=== PATIENT | male | born 1930 | race Caucasian/White ===

== ENCOUNTER 2016-05-09 17:29 | Inpatient (IN) | payer MEDICARE, MEDICAID ==
[~2016-05-09] VITALS: Ht 167.6 cm; Wt 57.6 kg
--- NOTE | 2016-05-09 17:47 | NUR ---
PT BIB SON TO ER BED 10. PRESENTS W/ A L EAR LACERATION. NO ACTIVE BLEEDING. FAMILY STATES UNWITNESSED FALL AT HOME. PT INSISTING TRIP AND FALL. CONFUSION NOTED. GOWNED AND PLACED ON MONITOR. AWAITNG MD ALEXANDER.
--- NOTE | 2016-05-09 17:56 | NUR ---
DR GUTIERREZ AT BEDSIDE FOR EVAL.
--- NOTE | 2016-05-09 18:30 | NUR ---
PT OT RADIOLOGY FOR HEAD AND C SPINE CT SCAN VIA [facility].
--- NOTE | 2016-05-09 19:17 | NUR ---
DR GUTIERREZ BACK AT BEDSIDE FOR L EAR AND SCALP LAC REPAIR.
--- NOTE | 2016-05-09 19:36 | NUR ---
CALLED [facility] FOR PSYCH EVAL, ETA 30 MIN
[2016-05-09 19:45] LABS: BASOPHILS % (AUTO) 0.5 % (0.0-2.0); EOSINOPHILS # (AUTO) 0.1 /CMM (0.0-0.7); EOSINOPHILS % (AUTO) 2.7 % (0.0-6.0); HEMATOCRIT 40 % (39-51); HEMOGLOBIN 13.6 g/dL (13.5-17.5); LYMPHOCYTES # (AUTO) 1.5 /CMM (0.8-4.8); LYMPHOCYTES % (AUTO) 43.9 % (20.0-44.0); MEAN CORPUSCULAR HEMOGLOBIN 31 PG (26.0-33.0); MEAN CORPUSCULAR HGB CONC 34 g/dl (31.0-36.0); MEAN CORPUSCULAR VOLUME 91 fL (80-96); MONOCYTES # (AUTO) 0.4 /CMM (0.1-1.30); MONOCYTES % (AUTO) 11.8 % (2.0-12.0); NEUTROPHILS # (AUTO) 1.4 /CMM (1.8-8.9); NEUTROPHILS % (AUTO) 41.1 % (43.0-81.0); PLATELET COUNT (AUTO) 180 /CMM (150-450); RDW COEFFICIENT OF VARIATION 13.3 (11.5-15.0); RED BLOOD CELL COUNT(AUTO) 4.41 MIL/uL (4.5-6.0); WHITE BLOOD COUNT (AUTO) 3.4 K/uL (4.3-11.0)
[2016-05-09 19:53] LABS: CALCIUM, SERUM 8.4 mg/dL (8.5-10.1); CREATININE 0.8 mg/dL (0.6-1.3); POTASSIUM 4.2 mmol/L (3.5-5.1)
--- NOTE | 2016-05-09 20:23 | NUR ---
CALLED NURSING SUP. FOR MS BED
[2016-05-09] MEDS ORDERED: HYDROCODONE/APAP 5/325MG 1 EACH TABLET PO ONE (20:30)
--- NOTE | 2016-05-09 20:36 | NUR ---
DR.RUTHERFORD MARIN DIRECTOR OF STUDENT SERVICES
[2016-05-09] MEDS ORDERED: HYDROCODONE/APAP 5/325MG 1 EACH TABLET ONE (20:57)
[2016-05-09 21:00] VITALS: BP 112/61
[2016-05-09] MEDS ORDERED: Z GUARD REMEDY 2 OZ OINT TP PRN (21:00)
[2016-05-09] MEDS ORDERED: HYDROCODONE/APAP 5/325MG 1 EACH TABLET PO PRN (21:00)
[2016-05-09] MEDS ORDERED: ZOLPIDEM TARTRATE 5 MG TABLET PO PRN (21:00)
[2016-05-09] MEDS ORDERED: MAGNESIUM HYDROXIDE 30 ML UDC PO PRN (21:00)
[2016-05-09] MEDS ORDERED: ACETAMINOPHEN 325 MG TABLET PO PRN (21:00)
[2016-05-09] MEDS ORDERED: MAG HYDROX/AL HYDROX/SIMETH 30 ML UDC PO PRN (21:00)
[2016-05-09] MEDS ORDERED: ONDANSETRON HCL/PF 4 MG/2 ML VIAL IVP PRN (21:00)
--- NOTE | 2016-05-09 21:16 | NUR ---
REPORT GIVEN TO JEFFERSON. PT AWAITING TRANSFER TO FLOOR.
--- NOTE | 2016-05-09 21:22 | NUR ---
RECEIVED REPORT FROM ER NURSE SHANNAN
[2016-05-09 21:40] VITALS: BP 112/61
--- NOTE | 2016-05-09 21:40 | NUR ---
MS RN INITIAL NOTES RECEIVED PATIENT VIA DIONE, JUDE MOLINA AT BEDSIDE. PER SON PATIENT FELL AT HOME UNWITNESSED AND HAD LACERATION ON HIS EAR. RECEIVED INFORMATION AND HOME MEDICATION FROM SON. PATIENT FARSI SPEAKING. SON ASSISTED WITH TRANSLATION. PATIENT A/OX2, DENIES PAIN OR DISCOMFORT. NO RESPIRATORY DISTRESS NOTED, ON ROOM AIR. NOTED WITH HEAD BANDAGE, CLEAN, DRY AND INTACT. PER REPORT PATIENT WAS TREATED IN ER. SKIN WARM AND DRY TO TOUCH. WITH RFA IV LINE PATENT AND INTACT. PER SON, HIS FATHER LIVES AT HOME WITH HIS MOM, MOTHER HAS OWN MEDICAL PROBLEMS AND UNABLE TO WATCH OVER FATHER. SON HOPING TO HAVE PLACEMENT FOR HIS FATHER. PATIENT HAS KOSHER DIET AT HOME. PATIENT HAS WALKER AND CANE AT HOME BUT DOES NOT USE IT. HAS HISTORY OF SEVERAL FALLS AT HOME. SON REFUSES ANY VACCINATIONS. EXPLAINED CALL LIGHT SYSTEM, ENCOURAGED PATIENT TO USE CALL LIGHT TO CALL FOR ASSISTANCE, PATIENT VERBALIZED UNDERSTANDING. SIDE RAILS UP AND LOCKED. BED KEPT AT LOWEST POSITION. CALL LIGHT KEPT WITHIN EASY REACH. WILL CONTINUE TO MONITOR.
[2016-05-09] MEDS ORDERED: ESCI5TAB PO (22:01)
[2016-05-09] MEDS ORDERED: PROP20TA7 PO (22:01)
[2016-05-09] MEDS ORDERED: RANI150C4 PO (22:02)
[2016-05-09] MEDS ORDERED: CYAN10009 PO (22:02)
[2016-05-09] MEDS ORDERED: ASPI-869 PO (22:03)
[2016-05-09] MEDS ORDERED: TAMS0.4C34 PO (22:03)
[2016-05-09] MEDS ORDERED: IV SET PRIMARY PUMP SET 1 EA INFUS.SET MC ONE (22:53)
[2016-05-09] MEDS: ENOXAPARIN SODIUM 30 MG/0.3 ML DISP.SYRIN SQ SCH (22:54)
[2016-05-09] MEDS: IV NS 0.9% 1,000 ML IV PRN (22:56)
--- NOTE | 2016-05-10 07:30 | NUR ---
MS RN CLOSING NOTES NO SIGNIFICANT CHANGES OVERNIGHT. FALL PRECAUTIONS OBSERVED. KEPT CLEAN AND DRY. FREQUENT CHECKS. IVF RUNNING. HEAD DRESSING DRY AND INTACT. SIDE RAILS UP AND LOCKED. BED KEPT AT LOWEST POSITION. CALL LIGHT KEPT WITHIN EASY REACH. BED ALARM ON. CONTINUITY OF CARE ENDORSED TO AM NURSE.
[2016-05-10 07:45] LABS: BASOPHILS % (AUTO) 0.5 % (0.0-2.0); EOSINOPHILS # (AUTO) 0.1 /CMM (0.0-0.7); EOSINOPHILS % (AUTO) 2.2 % (0.0-6.0); HEMATOCRIT 37 % (39-51); HEMOGLOBIN 12.7 g/dL (13.5-17.5); LYMPHOCYTES # (AUTO) 1.1 /CMM (0.8-4.8); LYMPHOCYTES % (AUTO) 36.4 % (20.0-44.0); MEAN CORPUSCULAR HEMOGLOBIN 32 PG (26.0-33.0); MEAN CORPUSCULAR HGB CONC 34 g/dl (31.0-36.0); MEAN CORPUSCULAR VOLUME 92 fL (80-96); MONOCYTES # (AUTO) 0.4 /CMM (0.1-1.30); MONOCYTES % (AUTO) 11.9 % (2.0-12.0); NEUTROPHILS # (AUTO) 1.5 /CMM (1.8-8.9); PLATELET COUNT (AUTO) 145 /CMM (150-450); RDW COEFFICIENT OF VARIATION 14.3 (11.5-15.0); RED BLOOD CELL COUNT(AUTO) 4.03 MIL/uL (4.5-6.0)
--- NOTE | 2016-05-10 07:46 | NUR ---
MS RN OPENING NOTE PATIENT IS ALERT AND ORIENTED AWAKE IN BED LOCKED IN LOWEST POSITION WITH SIDERAILS UP x2. NO PAIN AT THIS TIME. NO SOB OR DISTRESS NOTED. FARSI SPEAKING. IV INTACT AND PATENT NO REDNESS OR SWELLING NOTED. CALL LIGHT WITHIN REACH. SAFETY MEASURES IMPLEMENTED. PATIENT HAS STITCHES ON EAR AND SMALL LACERATION ON HEAD DUE TO FALL AT HOME. WILL CONTINUE TO MONITOR
[2016-05-10] MEDS: PANTOPRAZOLE 40 MG TABLET.DR PO SCH (07:59)
[2016-05-10] MEDS: ESCITALOPRAM OXALATE (10 MG) 10 MG TABLET PO SCH (08:00)
[2016-05-10] MEDS: ASPIRIN EC 325 MG TABLET.DR PO SCH (08:00)
[2016-05-10] MEDS: FAMOTIDINE (20 MG) 20 MG TABLET PO SCH (08:00)
[2016-05-10] MEDS: CYANOCOBALAMIN 500 MCG TABLET PO SCH (08:00)
[2016-05-10] MEDS: TAMSULOSIN 0.4 MG CAP.SR.24H PO SCH (08:00)
[2016-05-10 08:01] LABS: CALCIUM, SERUM 8.2 mg/dL (8.5-10.1); CREATININE 0.8 mg/dL (0.6-1.3); MAGNESIUM 1.7 mg/dL (1.8-2.4); PHOSPHORUS 3.4 mg/dL (2.5-4.9); POTASSIUM 3.7 mmol/L (3.5-5.1)
[2016-05-10] MEDS: PROPRANOLOL HCL 10 MG TABLET PO SCH ×3 (08:01→21:58)
[2016-05-10 08:13] VITALS: BP 138/75
--- NOTE | 2016-05-10 08:15 | NUR ---
MS RN NOTE PATIENT IS REFUSING TO TAKE MEDICATION. EXPLAINED RISKS AND BENEFITS. PATIENT STILL REFUSED AFTER THREE ATTEMPTS. WILL CONTINUE TO MONITOR
[2016-05-10 08:24] LABS: APPEARANCE,URINE CLEAR (CLEAR); BILIRUBIN,URINE NEGATIVE (NEGATIVE); BLOOD, URINE NEGATIVE Ery/uL (NEGATIVE); COLOR,URINE YELLOW (YELLOW); KETONES,URINE NEGATIVE (NEGATIVE); LEUKOCYTE ESTERASE ,URINE NEGATIVE (NEGATIVE); NITRITE, URINE NEGATIVE (NEGATIVE); PROTEIN,URINE NEGATIVE (NEGATIVE); UGLUCOSE NEGATIVE (NEGATIVE); UROBILINOGEN,URINE 0.2 EU/dL (0.2)
[2016-05-10] MEDS ORDERED: SECONDARY IV SET 1 EA INFUS.SET MC ONE (10:49)
[2016-05-10] MEDS: Magnesium 1GM/D5W 100ML PREMIX 100 ML IV SCH ×2 (10:50→11:38)
--- NOTE | 2016-05-10 11:30 | NUR ---
M/S EXPERIENCE DESIGNER: NOTES RECEIVED PT IN BED AWAKE, VOIDED WITH 400ML OF CLEAR YELLOW URINE USING URINAL. MAGNESIUM SULFATE IVPB BAG #1 INFUSING AT THIS TIME. WILL CONTINUE TO MONITOR.
--- NOTE | 2016-05-10 11:30 | NUR ---
MS RN ENDORSEMENT NOTE ENDORSED TO KEN BLAKE ABOUT PATIENT. MAGNESIUM BAG#1 INFUSING AT THIS TIME. NO PAIN AT THIS TIME. NO SOB OR DISTRESS NOTED.
--- NOTE | 2016-05-10 12:00 | NUR ---
M/S INTERNAL MEDICINE SPECIALIST: NEURO CONSULT RECEIVED NEW ORDERS FROM DR. QUESADA. ORDERS ACKNOWLEDGED. DIG[employer]UTIONS ARCHITECT AT BEDSIDE DRAWING BLOOD AT THIS TIME. CONTINUE ON 1:1 SITTER. WILL CONTINUE TO MONITOR.
--- NOTE | 2016-05-10 12:05 | NUR ---
m/s administrative appeals tribunal member: notes lunch served with hob elevated. will continue to monitor.
--- NOTE | 2016-05-10 12:15 | NUR ---
m/s legal records clerk: neuro f/u seen by dr. alford at this time.
--- NOTE | 2016-05-10 12:25 | NUR ---
m/s auto air conditioning apprentice: notes wound nurse landon (rn) at bedside with joselito (plastic surgeon) at this time. will continue to monitor.
[2016-05-10 12:38] LABS: ALBUMIN 2.9 g/dL (3.4-5.0); BILIRUBIN,DIRECT 0.1 mg/dL (0.0-0.2); BILIRUBIN,TOTAL 0.5 mg/dL (0.2-1.0)
--- NOTE | 2016-05-10 12:42 | NUR ---
WOUND CARE CONSULT: PATIENT SEEN AND SKIN ASSESSMENT DONE. PATIENT ALERT, URGE INCONTINENCE, ALISON 14, PATY ISOFLEX TOMMY BED ORDERED BY NURSING STAFF AND WILL BE PLACED WHEN AVAILABLE IN THE UNIT, NEEDS PROMPTING AND ASSIST IN TURNING AND REPOSITIONING. SEE TODAY'S SKIN ASSESSMENT IN PCS ALONG WITH RECOMMENDATIONS. RECOMMEND SKIN/MOISTURE PROTECTION WITH Z GUARD AND PRESSURE PREVENTION MEASURES ORDERED. MD IN AGREEMENT WITH PLAN OF CARE. ALL RECOMMENDATIONS DISCUSSED WITH NURSING STAFF. Addendum: 05/10/16 at 1245 by JESUS SHEPPARD WNDNU Amended: Links added.
[2016-05-10 12:48] LABS: THYROID STIMULATING HORMONE 1.304 uIU/mL (0.358-3.74)
[2016-05-10] MEDS: NEOMY SULF/BACITRAC ZN/POLY 15 GM TUBE TP SCH (13:47)
[2016-05-10] MEDS: IV NS 0.9% 1,000 ML IV PRN (14:49)
--- NOTE | 2016-05-10 15:50 | NUR ---
m/s talent sourcer: notes assisted pt to bathroom via w/c. son visiting at this time and will meet with moisés (case management) as stated re: d'c planning to snf.
[2016-05-10 16:00] VITALS: BP 134/72
--- NOTE | 2016-05-10 16:10 | NUR ---
m/s adolescent coordinator: notes up in w/c with son in front of nurses's station. son still awaiting for moisés (case management) to discussed snf placement.
[2016-05-10] MEDS: CARBIDOPA/LEVODOPA 25/100 MG 1 UDTAB PO SCH ×2 (17:00→18:53)
--- NOTE | 2016-05-10 18:55 | NUR ---
M/S FIBER PICKER: NOTES PT QUIET AT THIS TIME, LYING IN BED WITH EYES OPEN. NO APPARENT DISTRESS NOTED. WILL CONTINUE TO MONITOR.
--- NOTE | 2016-05-10 19:25 | NUR ---
RN OPEN NOTES RECEIVED PATIENT AWAKE LAYING IN BED. A/O X1. NO SIGNS OF DISTRESS OR DISCOMFORT. BREATHING EVEN AND UNLABORED. IV ACCESS IN RFA WITH NS INFUSING, PATENT AND INTACT, NO SIGNS OF REDNESS OR INFILTRATION. BED IN LOW LOCKED POSITION WITH SIDE RAILS X3. CALL LIGHT WITHIN REACH. WILL CONTINUE TO MONITOR.
[2016-05-10 20:00] VITALS: BP 153/79
[2016-05-10 20:58] VITALS: BP 153/79
[2016-05-10] MEDS: ENOXAPARIN SODIUM 30 MG/0.3 ML DISP.SYRIN SQ SCH (21:58)
[2016-05-10] MEDS: ATORVASTATIN 10 MG TABLET PO SCH (21:58)
--- NOTE | 2016-05-11 01:10 | NUR ---
RN NOTES SPOKE WITH DR. BRASHER REGARDING PATIENTS NEED FOR 1:1 SITTER, PT HAS HX OF MULTIPLE FALLS AND CONSISTENTLY ATTEMPTS TO GET OUT OF BED ON HIS OWN. NEW ORDERS CARRIED OUT. WILL CONTINUE TO MONITOR.
[2016-05-11] MEDS: IV NS 0.9% 1,000 ML IV PRN ×2 (06:29→20:02)
--- NOTE | 2016-05-11 06:50 | NUR ---
RN CLOSING NOTES PATIENT RESTING IN BED. A/O X1. NO SIGNS OF DISTRESS OR DISCOMFORT. BREATHING EVEN AND UNLABORED. IV ACCESS IN RFA WITH NS INFUSING, PATENT AND INTACT, NO SIGNS OF REDNESS OR INFILTRATION. NO SIGNIFICANT CHANGES THROUGH THE NIGHT. PATIENT KEPT CLEAN DRY AND COMFORTABLE. SAFETY MEASURES UTILIZED. BED IN LOW LOCKED POSITION WITH SIDE RAILS X3. CALL LIGHT WITHIN REACH. WILL ENDORSE TO AM SHIFT FOR JENAE.
[2016-05-11 07:13] LABS: BASOPHILS % (AUTO) 0.4 % (0.0-2.0); EOSINOPHILS # (AUTO) 0.1 /CMM (0.0-0.7); EOSINOPHILS % (AUTO) 1.7 % (0.0-6.0); HEMATOCRIT 41 % (39-51); HEMOGLOBIN 14.4 g/dL (13.5-17.5); LYMPHOCYTES # (AUTO) 1.1 /CMM (0.8-4.8); LYMPHOCYTES % (AUTO) 35.3 % (20.0-44.0); MEAN CORPUSCULAR HEMOGLOBIN 32 PG (26.0-33.0); MEAN CORPUSCULAR HGB CONC 35 g/dl (31.0-36.0); MEAN CORPUSCULAR VOLUME 91 fL (80-96); MONOCYTES # (AUTO) 0.4 /CMM (0.1-1.30); MONOCYTES % (AUTO) 11.5 % (2.0-12.0); NEUTROPHILS # (AUTO) 1.6 /CMM (1.8-8.9); NEUTROPHILS % (AUTO) 51.1 % (43.0-81.0); PLATELET COUNT (AUTO) 155 /CMM (150-450); RDW COEFFICIENT OF VARIATION 14.2 (11.5-15.0); RED BLOOD CELL COUNT(AUTO) 4.57 MIL/uL (4.5-6.0); WHITE BLOOD COUNT (AUTO) 3.2 K/uL (4.3-11.0)
[2016-05-11 07:14] LABS: CALCIUM, SERUM 8.6 mg/dL (8.5-10.1); CREATININE 0.8 mg/dL (0.6-1.3); MAGNESIUM 1.9 mg/dL (1.8-2.4); POTASSIUM 3.8 mmol/L (3.5-5.1)
--- NOTE | 2016-05-11 07:18 | NUR ---
MS RN OPENING NOTE PATIENT RECEIVED ASLEEP IN BED AND AROUSABLE. ALERT AND ORIENTED X 1. HOB ELEVATED. SITTER AT BEDSIDE. ON ROOM AIR, NO SIGNS OF SOB NOTED. NO SIGNS OF PAIN OR DISCOMFORTS AT THIS TIME. IV ACCESS ON RIGHT HAND INTACT AND PATENT WITH NS @ 100ML/HR INFUSING WELL. VO INTACT AND PATENT WITH CLEAR YELLOW URINE NOTED @ BEDSIDE DRAINAGE BAG. BED LOCKED AND IN LOWEST POSITION WITH SIDE RAILS UP x2. SAFETY MEASURES MAINTAINED. CALL LIGHT WITHIN REACH. WILL CONTINUE TO MONITOR ACCORDINGLY.
[2016-05-11 07:37] LABS: CHOLESTEROL 133 mg/dL (<200); HDL CHOLESTEROL 37 mg/dL (40-60); LDL 88 mg/dL (0-99); TRIGLYCERIDES 60 mg/dL (30-150)
[2016-05-11] MEDS: PANTOPRAZOLE 40 MG TABLET.DR PO SCH (08:29)
[2016-05-11] MEDS: TAMSULOSIN 0.4 MG CAP.SR.24H PO SCH (08:30)
[2016-05-11] MEDS: ASPIRIN EC 325 MG TABLET.DR PO SCH (08:31)
[2016-05-11] MEDS: FAMOTIDINE (20 MG) 20 MG TABLET PO SCH (08:31)
[2016-05-11] MEDS: CYANOCOBALAMIN 500 MCG TABLET PO SCH (08:31)
[2016-05-11] MEDS: CARBIDOPA/LEVODOPA 25/100 MG 1 UDTAB PO SCH ×3 (08:32→16:21)
[2016-05-11] MEDS: ESCITALOPRAM OXALATE (10 MG) 10 MG TABLET PO SCH (08:32)
[2016-05-11] MEDS: PROPRANOLOL HCL 10 MG TABLET PO SCH ×4 (08:36→20:59)
[2016-05-11] MEDS: NEOMY SULF/BACITRAC ZN/POLY 15 GM TUBE TP SCH (08:38)
--- NOTE | 2016-05-11 19:07 | NUR ---
MS RN CLOSING NOTE PATIENT IN BED AWAKE, ALERT AND ORIENTED X 1- WITH SITTER AT BEDSIDE. HOB ELEVATED. CONFUSED AT TIMES. ALL DUE NURSING CARE GIVEN AND DUE MEDS GIVEN ORDERED. ON ROOM AIR, NO SIGNS OF SOB NOTED. IV ACCESS ON RIGHT FOREARM INTACT AND PATENT WITH NS @ 75ML/HR INFUSING WELL. BED LOCKED AND IN LOWEST POSITION WITH SIDE RAILS UP x2. SAFETY MEASURES MAINTAINED. CALL LIGHT WITHIN REACH. WILL ENDORSED TO CHIEF SERVICE OBSERVER FOR CONTINUITY OF CARE.
--- NOTE | 2016-05-11 19:59 | NUR ---
MS/MEAT GRADER RECEIVED PT IN BED ALERTx1 PT SEEMS AGITATED MAKING SEVERAL ATTEMPTS TO PULL IV AND IS AGGRESSIVE WITH ME WHEN I ATTEMPT REORIENTATION. PT MAY BE IN PAIN PER NURSING ASSESSMENT. WILL MEDICATE. VSS AFEBRILE. WILL CONTINUE TO MONITOR FROM BEDSIDE.
[2016-05-11 20:00] VITALS: BP 141/89
[2016-05-11] MEDS: ENOXAPARIN SODIUM 30 MG/0.3 ML DISP.SYRIN SQ SCH (20:04)
--- NOTE | 2016-05-11 20:55 | NUR ---
MS/STEM SIZER PT NON-COMPLIANT WITH MEDICATION ADMINISTRATION. PT SPITTING MEDICATION IN MY FACE AND LASHING OUT. LEXX UGALDE RN AT BEDSIDE TO ASSIST BUT PT IS UNCOOPERATIVE. WILL UN ADMINISTER PO MEDS.
[2016-05-11] MEDS: ATORVASTATIN 10 MG TABLET PO SCH (21:00)
--- NOTE | 2016-05-11 21:04 | NUR ---
MED NOTE: HYDROCODONE/APAP 5/325MG WASTED WITH LEXX GARRISON.
--- NOTE | 2016-05-11 21:18 | NUR ---
MS/LOGGING EQUIPMENT OPERATOR PT NOTED WITH BLEEDING FROM LEFT EAR. TRIED TO ASSESS BUT PT IS SWATTING AT ME. WILL CONTINUE TO MONITOR.
--- NOTE | 2016-05-11 21:29 | NUR ---
MS/MEDICAL PHOTOGRAPHER PT SEEMS TO BE HALLUCINATING, GRABBING TOWARDS THE CEILING AND SPEAKING IN FARSI. SAFETY MEASURES IN PLACE. WILL CONTINUE TO MONITOR FROM BEDSIDE.
--- NOTE | 2016-05-11 23:09 | NUR ---
MS/PIERCING SPECIALIST PT SOILED DIAPER. PERICARE GIVEN, NEW DIAPER APPLIED. PT REPOSITION. WILL CONTINUE TO MONITOR.
--- NOTE | 2016-05-12 02:38 | NUR ---
MS/SENIOR PATROL AGENT PT SOILED DIAPER PERICARE GIVEN AND DIAPER CHANGED. PT VERY AGITATED DURING DIAPER CHANGE MAKING ATTEMPTS TO KICK ME. TRIED TO REORIENT PT, NO SUCCESS. PT REPOSITION. WILL CONTINUE TO MONITOR.
--- NOTE | 2016-05-12 06:52 | NUR ---
MS/SALES PROMOTION DIRECTOR PT SOILED DIAPER. TOTAL AM CARE GIVEN. LINENS CHANGED. PT RESTING IN BED. RESPIRATIONS EVEN AND UNLABORED. WILL ENDORSE TO AM SHIFT.
--- NOTE | 2016-05-12 07:31 | NUR ---
MS RN OPENING NOTE RECEIVED PATIENT COMFORTABLY RESTING IN BED WITH SITTER @ BEDSIDE. ALERT AND ORIENTED X 1, FOLLOWS SIMPLE COMMANDS. ON ROOM AIR, NO SIGNS OF SOB NOTED. NO SIGNS OF PAIN OR DISCOMFORTS AT THIS TIME. IV ACCESS ON RIGHT FOREARM G# 20 INTACT AND PATENT WITH NS @ 75ML/HR INFUSING WELL, NO SIGNS OF INFILTRATION NOTED. HOB ELEVATED. BED LOCKED AND IN LOWEST POSITION WITH SIDE RAILS UP FOR SAFETY PRECAUTION. CALL LIGHT WITHIN REACH. WILL CONTINUE TO MONITOR ACCORDINGLY.
[2016-05-12 07:32] LABS: BASOPHILS % (AUTO) 0.4 % (0.0-2.0); EOSINOPHILS # (AUTO) 0.1 /CMM (0.0-0.7); HEMATOCRIT 43 % (39-51); HEMOGLOBIN 14.7 g/dL (13.5-17.5); LYMPHOCYTES # (AUTO) 1.2 /CMM (0.8-4.8); LYMPHOCYTES % (AUTO) 34.2 % (20.0-44.0); MEAN CORPUSCULAR HEMOGLOBIN 31 PG (26.0-33.0); MEAN CORPUSCULAR HGB CONC 34 g/dl (31.0-36.0); MEAN CORPUSCULAR VOLUME 91 fL (80-96); MONOCYTES # (AUTO) 0.4 /CMM (0.1-1.30); MONOCYTES % (AUTO) 11.5 % (2.0-12.0); NEUTROPHILS # (AUTO) 1.9 /CMM (1.8-8.9); NEUTROPHILS % (AUTO) 51.9 % (43.0-81.0); PLATELET COUNT (AUTO) 171 /CMM (150-450); RDW COEFFICIENT OF VARIATION 13.6 (11.5-15.0); WHITE BLOOD COUNT (AUTO) 3.6 K/uL (4.3-11.0)
[2016-05-12 07:54] LABS: CALCIUM, SERUM 8.7 mg/dL (8.5-10.1); MAGNESIUM 1.7 mg/dL (1.8-2.4); POTASSIUM 4.2 mmol/L (3.5-5.1)
[2016-05-12] MEDS: PANTOPRAZOLE 40 MG TABLET.DR PO SCH (07:57)
[2016-05-12 08:00] VITALS: BP 157/75
[2016-05-12] MEDS: TAMSULOSIN 0.4 MG CAP.SR.24H PO SCH (09:02)
[2016-05-12] MEDS: FAMOTIDINE (20 MG) 20 MG TABLET PO SCH (09:05)
[2016-05-12] MEDS: ESCITALOPRAM OXALATE (10 MG) 10 MG TABLET PO SCH (09:05)
[2016-05-12] MEDS: CYANOCOBALAMIN 500 MCG TABLET PO SCH (09:05)
[2016-05-12] MEDS: ASPIRIN EC 325 MG TABLET.DR PO SCH (09:06)
[2016-05-12] MEDS: CARBIDOPA/LEVODOPA 25/100 MG 1 UDTAB PO SCH ×3 (09:06→16:50)
[2016-05-12] MEDS: PROPRANOLOL HCL 10 MG TABLET PO SCH ×3 (09:07→22:02)
[2016-05-12] MEDS: NEOMY SULF/BACITRAC ZN/POLY 15 GM TUBE TP SCH (09:08)
[2016-05-12] MEDS: IV NS 0.9% 1,000 ML IV PRN (10:47)
[2016-05-12] MEDS: Magnesium 1GM/D5W 100ML PREMIX 100 ML IV SCH ×2 (11:22→12:24)
--- NOTE | 2016-05-12 14:05 | NUR ---
RN NOTES PATIENT'S LEFT EAR NOTED MORE SWOLLEN AND DISCOLORED, PHOTO TAKEN AND FILED. MAINTENANCE JOB TITLES Jenn CHRISTENSEN CAME AND ASSESSED PATIENT WITH ORDER TO START ROCEPHIN 1GM IVPB Q 24HRS AND LEFT EAR OFFLOADED AT ALL TIMES. SITTER AT BEDSIDE FOR CLOSE MONITORING.
[2016-05-12] MEDS: GABAPENTIN 100 MG CAPSULE PO SCH (14:54)
[2016-05-12] MEDS: CEFTRIAXONE 1 G in IV D5W 50 ML IV SCH (15:16)
[2016-05-12 16:00] VITALS: BP 142/70
--- NOTE | 2016-05-12 19:30 | NUR ---
MS RN INITIAL NOTE RECEIVED PT AWAKE AND ORIENTED X1-2, CONFUSED AND SHOWING SIGNS OF AGITATION AT TIMES, NO MEDICATION TO BE GIVEN PER FAMILY, MD AWARE AND NO ORDER RECEIVED FOR MEDICATION, SITTER AT BEDSIDE FOR PT'S SAFETY, ACCORDING TO AM NURSE PT'S LEFT EAR NOTED TO BE SWOLLEN AND DISCOLORED, MD ORDER ROCEPHIN IVPB, WILL MONITOR CLOSES, SAFETY MEASURES WILL BE MAINTAINED, NEEDS WILL BE ANTICIPATED AND ATTENDED TO DURING HOURLY ROUNDS AND NEEDED.
[2016-05-12 20:00] VITALS: BP 156/90
--- NOTE | 2016-05-12 20:02 | NUR ---
MS RN CLOSING NOTE PATIENT IN BED AWAKE IN NO ACUTE SIGNS OF DISTRESS. ALERT AND ORIENTED X 1-2 WITH PERIODS OF CONFUSION DURING THE DAY. HOB ELEVATED. VISITED BY FAMILY THIS AFTERNOON. SITTER AT BEDSIDE. ON ROOM AIR, NO SIGNS OF SOB NOTED. IV ACCESS ON RIGHT FOREARM INTACT AND PATENT WITH NS @ 75ML/HR INFUSING WELL. BED LOCKED AND IN LOWEST POSITION WITH SIDE RAILS UP x2. SAFETY MEASURES MAINTAINED. CALL LIGHT WITHIN REACH. ALL DUE NURSING CARE GIVEN AND DUE MEDS GIVEN ORDERED. ENDORSED TO DROP BOARD MAN TO CONTINUE CARE.
[2016-05-12] MEDS ORDERED: MIRTAZAPINE 15 MG TABLET PO SCH (22:00)
[2016-05-12] MEDS: ATORVASTATIN 10 MG TABLET PO SCH (22:01)
--- NOTE | 2016-05-13 06:42 | NUR ---
MS RN CLOSING NOTE PT REMAINED STABLE DURING COKE DRAWER, NO SIGNS OF PAIN OR RESPIRATORY DISTRESS NOTED, REPORTED TO MD THAT PT'S LEFT EAR IS SWOLLEN AND PRESENT DISCOLORATION, WOUND CONSULT ORDER BY FARAZ POWELL. PT SLEPT INTERMITTENTLY DURING NIGHT, REPOSITIONED EVERY TWO HOUR TO PREVENT SKIN BREAKDOWN, ALWAYS MAINTAINING LEFT EAR OFF LOADED PER MD'S ORDER, PT IS CLEAN/DRY AND COMFORTABLE, ALL NEEDS ATTENDED TO, WILL ENDORSE TO INCOMING NURSE FOR JENAE.
[2016-05-13 06:56] VITALS: BP 156/95
[2016-05-13 07:09] LABS: CALCIUM, SERUM 8.7 mg/dL (8.5-10.1); POTASSIUM 4.7 mmol/L (3.5-5.1)
[2016-05-13 07:29] LABS: BASOPHILS % (AUTO) 0.4 % (0.0-2.0); EOSINOPHILS # (AUTO) 0.1 /CMM (0.0-0.7); EOSINOPHILS % (AUTO) 2.8 % (0.0-6.0); HEMATOCRIT 46 % (39-51); HEMOGLOBIN 15.7 g/dL (13.5-17.5); LYMPHOCYTES # (AUTO) 1.2 /CMM (0.8-4.8); LYMPHOCYTES % (AUTO) 31.9 % (20.0-44.0); MEAN CORPUSCULAR HEMOGLOBIN 31 PG (26.0-33.0); MEAN CORPUSCULAR HGB CONC 34 g/dl (31.0-36.0); MEAN CORPUSCULAR VOLUME 91 fL (80-96); MONOCYTES # (AUTO) 0.5 /CMM (0.1-1.30); MONOCYTES % (AUTO) 14.2 % (2.0-12.0); NEUTROPHILS % (AUTO) 50.7 % (43.0-81.0); PLATELET COUNT (AUTO) 173 /CMM (150-450); RDW COEFFICIENT OF VARIATION 14.1 (11.5-15.0); RED BLOOD CELL COUNT(AUTO) 5.03 MIL/uL (4.5-6.0); WHITE BLOOD COUNT (AUTO) 3.9 K/uL (4.3-11.0)
--- NOTE | 2016-05-13 08:00 | NUR ---
m/s development consultant: initial assessment received pt in bed asleep, but arousable. appears sedated. held breakfast and meds for now. sitter at bedside. resp. even and unlabored. no apparent distress noted. will continue to monitor.
--- NOTE | 2016-05-13 09:30 | NUR ---
m/s setter molding and coremaking machines: md visit seen and examined by arthur (acnp) at this time. pt remains sedated/asleep. sitter remains at bedside. meds held for now until pt wakes up. will continue to monitor.
[2016-05-13] MEDS: ASPIRIN EC 325 MG TABLET.DR PO SCH (09:47)
[2016-05-13] MEDS: FAMOTIDINE (20 MG) 20 MG TABLET PO SCH (09:47)
[2016-05-13] MEDS: CARBIDOPA/LEVODOPA 25/100 MG 1 UDTAB PO SCH ×2 (09:47→13:00)
[2016-05-13] MEDS: CYANOCOBALAMIN 500 MCG TABLET PO SCH (09:47)
[2016-05-13] MEDS: TAMSULOSIN 0.4 MG CAP.SR.24H PO SCH (09:47)
[2016-05-13 09:48] VITALS: BP 140/60
[2016-05-13] MEDS: GABAPENTIN 100 MG CAPSULE PO SCH (09:48)
[2016-05-13] MEDS: PROPRANOLOL HCL 10 MG TABLET PO SCH ×2 (09:48→13:00)
[2016-05-13] MEDS ORDERED: GABA100C PO (11:49)
[2016-05-13] MEDS ORDERED: MIRT15TA PO ×2 (11:49→17:38)
[2016-05-13] MEDS ORDERED: ATOR10TA PO (11:49)
[2016-05-13] MEDS ORDERED: NEOM15OI3 TP (11:49)
[2016-05-13] MEDS ORDERED: Carbidopa/Levodopa PO (11:49)
[2016-05-13] MEDS ORDERED: CEPH-570 PO ×2 (11:49→17:45)
--- NOTE | 2016-05-13 12:00 | NUR ---
m/s clinical studies specialist: md visit seen and examined by arthur (acnp) with order to Transfer to GPS, Continue antibiotics PO. order acknowledged. cn aware.
[2016-05-13] MEDS: NEOMY SULF/BACITRAC ZN/POLY 15 GM TUBE TP SCH (12:50)
--- NOTE | 2016-05-13 13:49 | NUR ---
WOUND CARE CONSULT FOLLOW UP TO ASSESS THE LEFT EAR WOUND. SEE TODAY'S SKIN ASSESSMENT IN PCS ALONG WITH RECOMMENDATIONS. ROZINA WOODS WIRELESS ARCHITECT FOR PLASTIC SURGICAL CONSULT FOLLOWING PATIENT'S CASE, STATED THE LEFT EAR IS BETTER TODAY AND TO CONTINUE CURRENT LOCAL WOUND TREATMENT, COVER EAR LOBE AND OFFLOAD LEFT EAR ORDERED BY MD. ALL DISCUSSED WITH NURSING STAFF. MD IN AGREEMENT WITH PLAN OF CARE.
--- NOTE | 2016-05-13 13:50 | NUR ---
m/s manager harbor: notes mona (breast worker) Orin intervention placed on a 5150 for GD and admitted to [facility]. also mona spoke to violeta (son) over the phone and made aware re: transfer to gps and placed on hold.
[2016-05-13] MEDS: CEFTRIAXONE 1 G in IV D5W 50 ML IV SCH (13:59)
--- NOTE | 2016-05-13 14:00 | NUR ---
m/s memory care program director: notes violeta (son) notified and made aware re: transfer to gps and will come to visit with mother as stated.
--- NOTE | 2016-05-13 14:20 | NUR ---
m/s kitchen steward: notes garry (son) here visiting and made aware re: discharge to gps today, awaiting for bed.
--- NOTE | 2016-05-13 15:45 | NUR ---
m/s shipping and receiving supervisor: notes pt unable to sign discharge papers due to cognitive impairment. 2 licensed signed all d'c papers. h/l removed with tip intact.
--- NOTE | 2016-05-13 16:00 | NUR ---
m/s rehabilitation construction specialist: notes report given to taniya rosas) for continuity of care.
--- NOTE | 2016-05-13 16:10 | NUR ---
m/s microfiche duplicator: discharged discharged to gps room 215 bed 1 with all belongings and d'c papers in stable condition.
[2016-05-13] MEDS ORDERED: CEPHALEXIN MONOHYDRATE 500 MG CAPSULE PO SCH (17:00)
[2016-05-13] MEDS ORDERED: GABA-532 PO (17:38)
[2016-05-13] MEDS ORDERED: CARB-93 PO (17:38)
[2016-05-13] MEDS ORDERED: FAMO20TA8 PO (17:38)
[2016-05-13] MEDS ORDERED: PROP20TA7 PO (17:38)
[2016-05-13] MEDS ORDERED: ATOR20TA PO (17:38)
== END 2016-05-13 16:00 | DRG 56 ==
LOC: EDBD → ER 17:32 → MED 20:59
PROVIDERS: ADMIT Internal Medicine; ATTEND Internal Medicine
PROC: 0HQ3XZZ Repair Left Ear Skin, External Approach (ICD-10-PCS; principal; 2016-05-09)
DX: G20 Parkinson's disease (principal); N17.0 Acute kidney failure with tubular necrosis; G93.40 Encephalopathy, unspecified; S01.312A Laceration without foreign body of left ear, initial encounter; Y92.009 Unspecified place in unspecified non-institutional (private) residence as the place of occurrence of the external cause; N40.0 Benign prostatic hyperplasia without lower urinary tract symptoms; R29.6 Repeated falls; K21.9 Gastro-esophageal reflux disease without esophagitis; Z95.0 Presence of cardiac pacemaker; F32.9 Major depressive disorder, single episode, unspecified; E83.42 Hypomagnesemia; L98.9 Disorder of the skin and subcutaneous tissue, unspecified; S81.801A Unspecified open wound, right lower leg, initial encounter; S01.21XA Laceration without foreign body of nose, initial encounter; L89.621 Pressure ulcer of left heel, stage 1; L89.611 Pressure ulcer of right heel, stage 1; L85.3 Xerosis cutis; S00.432A Contusion of left ear, initial encounter; F29 Unspecified psychosis not due to a substance or known physiological condition; G30.9 Alzheimer's disease, unspecified; F02.80 Dementia in other diseases classified elsewhere, unspecified severity, without behavioral disturbance, psychotic disturbance, mood disturbance, and anxiety; W18.30XA Fall on same level, unspecified, initial encounter; Y93.9 Activity, unspecified; Y99.9 Unspecified external cause status; S01.01XA Laceration without foreign body of scalp, initial encounter
CPT/HCPCS: 36415; 70450-TC; 72125-TC; 80048-TC; 80061-TC; 80076-TC; 81000-TC; 82140-TC; 83735-TC; 84100-TC; 84443-TC; 84484-TC; 85025-TC; 87081-TC; 97001-TC; A4606; A6402; A6403; J0696; J1650; J3475; J7030; J7060; Z7610

== ENCOUNTER 2016-05-13 16:19 | Inpatient (IN) | payer MEDICARE, MEDICAID ==
[~2016-05-13] VITALS: Ht 172.7 cm; Wt 55.3 kg
[2016-05-13 16:15] VITALS: BP 142/67
--- NOTE | 2016-05-13 16:15 | NUR ---
[id number]: PT IS 85 YEARS ADMITTED ON 5150 FOR GD. ACCORDING TO THE HOLD PT IS CONFUSED, INCREASED AGITATION, NON-COMPLIANT, UNABLE TO CARE FOR SELF, PSYCHOSIS. UPON [id number] ASSESSMENT PT IS OBSERVED ANXIOUS, RESTLESS, SEDATED, UNCOOPERATIVE WHEN ASSESSING BODY. PT IS A/O X1, CONFUSED, FLIGHT OF IDEAS, MOTOR SENSORY, IMPAIRED LONG AND SHORT MEMORY. PT HAS PARKINSONS, DEMENTIA, PSYCHOSIS, GERD, BPH, PACEMAKER, ALZHEIMER'S DISEASE, FREQUENT FALLS, HAS LEFT PARIETAL LACERATION WITH SUTURES AND SWOLLEN EAR LOBE. ORDERED MRSA. ORDERED SPEECH, SWALLOW, PT EVALUATION. DR. DONG AND DR. COLBERT NOTIFIED. FAMILY AWARE OF ADMISSION. SKIN ASSESSMENT DONE. ALL PAPERWORK AND COMPUTER DOCUMENTATION DONE. WILL ENDORSE TO INCOMING NURSE TO DOUBLE CHECK ALL ADMISSION PAPERWORK.
[~2016-05-13 16:19] MED LIST: ASPI-869 PO; ATOR10TA PO; CEPH-570 PO; CYAN10009 PO; Carbidopa/Levodopa PO; ESCI5TAB PO; GABA100C PO; MIRT15TA PO; NEOM15OI3 TP; PROP20TA7 PO; RANI150C4 PO; TAMS0.4C34 PO
[2016-05-13] MEDS ORDERED: MAG HYDROX/AL HYDROX/SIMETH 30 ML UDC PO PRN (17:00)
[2016-05-13] MEDS ORDERED: LORAZEPAM 0.5 MG TABLET PO PRN (17:00)
[2016-05-13] MEDS ORDERED: ACETAMINOPHEN 325 MG TABLET PO PRN (17:00)
[2016-05-13] MEDS ORDERED: MAGNESIUM HYDROXIDE 30 ML UDC PO PRN (17:00)
[2016-05-13] MEDS ORDERED: CARB-93 PO (17:38)
[2016-05-13] MEDS ORDERED: MIRT15TA PO (17:38)
[2016-05-13] MEDS ORDERED: FAMO20TA8 PO (17:38)
[2016-05-13] MEDS ORDERED: PROP20TA7 PO (17:38)
[2016-05-13] MEDS ORDERED: ATOR20TA PO (17:38)
[2016-05-13] MEDS ORDERED: GABA-532 PO (17:38)
[2016-05-13] MEDS ORDERED: CEPH-570 PO (17:45)
[2016-05-13 20:01] VITALS: BP 95/56
[2016-05-13] MEDS: MIRTAZAPINE 15 MG TABLET PO SCH (22:16)
[2016-05-13] MEDS: QUETIAPINE FUMARATE 25 MG TABLET PO SCH (22:16)
[2016-05-13] MEDS: TEMAZEPAM 7.5 MG CAPSULE PO PRN (22:25)
[2016-05-14 07:41] LABS: ALBUMIN 3.8 g/dL (3.4-5.0); BILIRUBIN,TOTAL 0.8 mg/dL (0.2-1.0); CALCIUM, SERUM 9.3 mg/dL (8.5-10.1); CREATININE 1.2 mg/dL (0.6-1.3); POTASSIUM 4.7 mmol/L (3.5-5.1); TOTAL PROTEIN, SERUM 7.9 g/dL (6.4-8.2)
[2016-05-14 08:00] VITALS: BP 153/95
[2016-05-14] MEDS ORDERED: PROPRANOLOL HCL 10 MG TABLET PO SCH (09:00)
[2016-05-14] MEDS: FAMOTIDINE (20 MG) 20 MG TABLET PO SCH (09:30)
[2016-05-14] MEDS: DIVALPROEX SODIUM 125 MG CAP.SPRINK PO SCH ×3 (09:30→17:45)
[2016-05-14] MEDS: CEPHALEXIN MONOHYDRATE 500 MG CAPSULE PO SCH ×2 (09:31→21:22)
[2016-05-14] MEDS: CYANOCOBALAMIN 500 MCG TABLET PO SCH (09:32)
[2016-05-14] MEDS: ASPIRIN EC 325 MG TABLET.DR PO SCH (09:32)
[2016-05-14] MEDS: TAMSULOSIN 0.4 MG CAP.SR.24H PO SCH (09:32)
[2016-05-14] MEDS: CARBIDOPA/LEVODOPA 25/100 MG 1 UDTAB PO SCH ×3 (09:32→17:44)
--- NOTE | 2016-05-14 11:01 | NUR ---
WOUND CARE CONSULT: PATIENT SEEN AND SKIN ASSESSMENT DONE. PATIENT WITH ALTERED MENTAL STATUS, INCONTINENT, NEEDS ASSIST IN TURNING AND REPOSITIONING, ALISON 16. SEE TODAY'S SKIN ASSESSMENT IN PCS ALONG WITH RECOMMENDATIONS DISCUSSED WITH NURSING STAFF INCLUDING MOISTURE PROTECTION WITH Z GUARD ORDERED, PRESSURE PREVENTION MEASURES. MD IN AGREEMENT WITH PLAN OF CARE. Addendum: 05/14/16 at 1103 by JESUS SHEPPARD WNDNU Amended: Links added.
[2016-05-14] MEDS: UREA 10% -AHA 4% CREAM 57 GM TUBE TP SCH ×2 (12:37→17:48)
[2016-05-14] MEDS: NEOMY SULF/BACITRAC ZN/POLY 15 GM TUBE TP SCH (12:38)
[2016-05-14 16:00] VITALS: BP 106/74
[2016-05-14] MEDS: Z GUARD REMEDY 2 OZ OINT TP SCH (17:48)
--- NOTE | 2016-05-14 18:30 | NUR ---
TAKING MOST OF MEDS.NO BEHAVIOR ISSUES.
[2016-05-14 20:22] VITALS: BP 143/75
[2016-05-14] MEDS: MIRTAZAPINE 15 MG TABLET PO SCH (21:22)
[2016-05-14] MEDS: ATORVASTATIN 10 MG TABLET PO SCH (21:22)
[2016-05-14] MEDS: QUETIAPINE FUMARATE 25 MG TABLET PO SCH (21:22)
[2016-05-14] MEDS: PROPRANOLOL HCL 10 MG TABLET PO SCH (21:23)
[2016-05-15] MEDS: PROPRANOLOL HCL 10 MG TABLET PO SCH ×3 (05:37→21:47)
[2016-05-15] MEDS: UREA 10% -AHA 4% CREAM 57 GM TUBE TP SCH ×2 (05:39→17:19)
[2016-05-15] MEDS: Z GUARD REMEDY 2 OZ OINT TP PRN (05:40)
[2016-05-15] MEDS: Z GUARD REMEDY 2 OZ OINT TP SCH ×2 (05:40→17:19)
[2016-05-15 08:00] VITALS: BP 129/71
[2016-05-15] MEDS: DIVALPROEX SODIUM 125 MG CAP.SPRINK PO SCH ×3 (08:42→16:32)
[2016-05-15] MEDS: TAMSULOSIN 0.4 MG CAP.SR.24H PO SCH (08:42)
[2016-05-15] MEDS: FAMOTIDINE (20 MG) 20 MG TABLET PO SCH (08:43)
[2016-05-15] MEDS: ASPIRIN EC 325 MG TABLET.DR PO SCH (08:43)
[2016-05-15] MEDS: CEPHALEXIN MONOHYDRATE 500 MG CAPSULE PO SCH ×2 (08:43→21:46)
[2016-05-15] MEDS: CYANOCOBALAMIN 500 MCG TABLET PO SCH (08:43)
[2016-05-15] MEDS: CARBIDOPA/LEVODOPA 25/100 MG 1 UDTAB PO SCH ×3 (08:43→16:32)
[2016-05-15] MEDS: NEOMY SULF/BACITRAC ZN/POLY 15 GM TUBE TP SCH (08:47)
[2016-05-15 16:00] VITALS: BP 142/57
[2016-05-15 20:00] VITALS: BP 115/72
[2016-05-15 20:41] VITALS: BP 115/72
[2016-05-15] MEDS: MIRTAZAPINE 15 MG TABLET PO SCH (21:46)
[2016-05-15] MEDS: ATORVASTATIN 10 MG TABLET PO SCH (21:46)
[2016-05-15] MEDS: QUETIAPINE FUMARATE 25 MG TABLET PO SCH (21:46)
[2016-05-16] MEDS: PROPRANOLOL HCL 10 MG TABLET PO SCH ×3 (06:00→22:34)
[2016-05-16] MEDS: UREA 10% -AHA 4% CREAM 57 GM TUBE TP SCH ×2 (06:26→16:57)
[2016-05-16] MEDS: Z GUARD REMEDY 2 OZ OINT TP SCH ×2 (06:26→17:04)
[2016-05-16 08:00] VITALS: BP 123/75
[2016-05-16] MEDS: ASPIRIN EC 325 MG TABLET.DR PO SCH (08:43)
[2016-05-16] MEDS: CYANOCOBALAMIN 500 MCG TABLET PO SCH (08:43)
[2016-05-16] MEDS: TAMSULOSIN 0.4 MG CAP.SR.24H PO SCH (08:43)
[2016-05-16] MEDS: DIVALPROEX SODIUM 125 MG CAP.SPRINK PO SCH ×3 (08:43→16:39)
[2016-05-16] MEDS: CEPHALEXIN MONOHYDRATE 500 MG CAPSULE PO SCH ×2 (08:43→22:34)
[2016-05-16] MEDS: CARBIDOPA/LEVODOPA 25/100 MG 1 UDTAB PO SCH ×3 (08:43→16:39)
[2016-05-16] MEDS: FAMOTIDINE (20 MG) 20 MG TABLET PO SCH (08:43)
[2016-05-16] MEDS: NEOMY SULF/BACITRAC ZN/POLY 15 GM TUBE TP SCH (10:21)
--- NOTE | 2016-05-16 12:59 | NUR ---
Initial discharge plan: Pt. resides at home with [id number] [facility] [address] [phone] but will not be able to return and will need placement. SW will work with family and MD and will help form safe and proper discharge.
[2016-05-16 16:04] VITALS: BP 134/79
[2016-05-16] MEDS: Z GUARD REMEDY 2 OZ OINT TP PRN (16:57)
[2016-05-16 20:00] VITALS: BP 114/81
[2016-05-16] MEDS: QUETIAPINE FUMARATE 25 MG TABLET PO SCH (22:35)
[2016-05-16] MEDS: MIRTAZAPINE 15 MG TABLET PO SCH (22:35)
[2016-05-16] MEDS: ATORVASTATIN 10 MG TABLET PO SCH (22:35)
[2016-05-16] MEDS: TEMAZEPAM 7.5 MG CAPSULE PO PRN (22:35)
[2016-05-17] MEDS: PROPRANOLOL HCL 10 MG TABLET PO SCH ×3 (05:21→21:33)
[2016-05-17] MEDS: UREA 10% -AHA 4% CREAM 57 GM TUBE TP SCH ×2 (06:00→18:29)
[2016-05-17] MEDS: Z GUARD REMEDY 2 OZ OINT TP SCH ×2 (06:32→17:19)
[2016-05-17] MEDS: BOOST PLUS FOOD-VANILLA 237 ML BOX PO SCH ×2 (07:51→17:15)
[2016-05-17 08:00] VITALS: BP_SYST 126; BP_SYST 175; BP_DIAS 67; BP_DIAS 83
[2016-05-17] MEDS: TAMSULOSIN 0.4 MG CAP.SR.24H PO SCH (08:02)
[2016-05-17] MEDS: ASPIRIN EC 325 MG TABLET.DR PO SCH (08:02)
[2016-05-17] MEDS: CYANOCOBALAMIN 500 MCG TABLET PO SCH (08:02)
[2016-05-17] MEDS: CARBIDOPA/LEVODOPA 25/100 MG 1 UDTAB PO SCH ×3 (08:02→17:15)
[2016-05-17] MEDS: CEPHALEXIN MONOHYDRATE 500 MG CAPSULE PO SCH (08:02)
[2016-05-17] MEDS: DIVALPROEX SODIUM 125 MG CAP.SPRINK PO SCH ×3 (08:02→17:15)
[2016-05-17] MEDS: FAMOTIDINE (20 MG) 20 MG TABLET PO SCH (08:02)
[2016-05-17] MEDS: NEOMY SULF/BACITRAC ZN/POLY 15 GM TUBE TP SCH (08:03)
--- NOTE | 2016-05-17 12:10 | NUR ---
GPS ETL INFORMATICA ARCHITECT: MD VISIT SEEN BY DR. MAO AT THIS TIME.
[2016-05-17 16:00] VITALS: BP 120/76
[2016-05-17 20:44] VITALS: BP 130/65
[2016-05-17] MEDS: ATORVASTATIN 10 MG TABLET PO SCH (22:17)
[2016-05-17] MEDS: MIRTAZAPINE 15 MG TABLET PO SCH (22:17)
[2016-05-17] MEDS: TEMAZEPAM 7.5 MG CAPSULE PO PRN (22:18)
[2016-05-17] MEDS: QUETIAPINE FUMARATE 25 MG TABLET PO SCH (22:18)
[2016-05-18] MEDS: PROPRANOLOL HCL 10 MG TABLET PO SCH ×3 (05:00→20:29)
[2016-05-18] MEDS: Z GUARD REMEDY 2 OZ OINT TP SCH ×2 (06:00→18:14)
[2016-05-18] MEDS: UREA 10% -AHA 4% CREAM 57 GM TUBE TP SCH ×2 (06:00→18:14)
[2016-05-18 07:53] VITALS: BP 138/70
[2016-05-18] MEDS: ASPIRIN EC 325 MG TABLET.DR PO SCH (09:16)
[2016-05-18] MEDS: TAMSULOSIN 0.4 MG CAP.SR.24H PO SCH (09:16)
[2016-05-18] MEDS: CARBIDOPA/LEVODOPA 25/100 MG 1 UDTAB PO SCH ×3 (09:16→18:13)
[2016-05-18] MEDS: CYANOCOBALAMIN 500 MCG TABLET PO SCH (09:16)
[2016-05-18] MEDS: DIVALPROEX SODIUM 125 MG CAP.SPRINK PO SCH ×3 (09:16→18:13)
[2016-05-18] MEDS: FAMOTIDINE (20 MG) 20 MG TABLET PO SCH (09:17)
[2016-05-18] MEDS: NEOMY SULF/BACITRAC ZN/POLY 15 GM TUBE TP SCH (09:17)
[2016-05-18] MEDS: BOOST PLUS FOOD-VANILLA 237 ML BOX PO SCH ×2 (11:23→18:15)
[2016-05-18 16:02] VITALS: BP 140/64
[2016-05-18 20:00] VITALS: BP 118/69
[2016-05-18] MEDS: MIRTAZAPINE 15 MG TABLET PO SCH (20:30)
[2016-05-18] MEDS: QUETIAPINE FUMARATE 25 MG TABLET PO SCH (20:30)
[2016-05-18] MEDS: ATORVASTATIN 10 MG TABLET PO SCH (20:30)
--- NOTE | 2016-05-18 20:31 | NUR ---
GPS/RN NOTE: PATIENT ALMOST SLEEPING, DUE MEDS FOR 2200 GIVEN, BP 118/69, 76, 95% ON ROOM AIR.
[2016-05-19] MEDS: UREA 10% -AHA 4% CREAM 57 GM TUBE TP SCH ×2 (06:00→18:10)
[2016-05-19] MEDS: PROPRANOLOL HCL 10 MG TABLET PO SCH ×3 (06:00→20:20)
[2016-05-19] MEDS: Z GUARD REMEDY 2 OZ OINT TP PRN ×2 (06:07→06:08)
[2016-05-19] MEDS: Z GUARD REMEDY 2 OZ OINT TP SCH ×2 (06:08→18:11)
[2016-05-19 08:00] VITALS: BP 147/77
[2016-05-19] MEDS: BOOST PLUS FOOD-VANILLA 237 ML BOX PO SCH ×2 (09:24→16:35)
[2016-05-19] MEDS: CYANOCOBALAMIN 500 MCG TABLET PO SCH (09:25)
[2016-05-19] MEDS: TAMSULOSIN 0.4 MG CAP.SR.24H PO SCH (09:25)
[2016-05-19] MEDS: CARBIDOPA/LEVODOPA 25/100 MG 1 UDTAB PO SCH ×3 (09:25→16:34)
[2016-05-19] MEDS: ASPIRIN EC 325 MG TABLET.DR PO SCH (09:25)
[2016-05-19] MEDS: FAMOTIDINE (20 MG) 20 MG TABLET PO SCH (09:25)
[2016-05-19] MEDS: DIVALPROEX SODIUM 125 MG CAP.SPRINK PO SCH ×3 (09:25→16:34)
[2016-05-19] MEDS: NEOMY SULF/BACITRAC ZN/POLY 15 GM TUBE TP SCH (12:32)
[2016-05-19 16:19] VITALS: BP 134/73
[2016-05-19 19:46] VITALS: BP 137/66
[2016-05-19] MEDS: ATORVASTATIN 10 MG TABLET PO SCH (20:20)
[2016-05-19] MEDS: QUETIAPINE FUMARATE 25 MG TABLET PO SCH (20:21)
[2016-05-19] MEDS: MIRTAZAPINE 15 MG TABLET PO SCH (20:21)
[2016-05-20] MEDS: PROPRANOLOL HCL 10 MG TABLET PO SCH ×3 (05:18→21:39)
[2016-05-20] MEDS: UREA 10% -AHA 4% CREAM 57 GM TUBE TP SCH ×2 (05:19→18:29)
--- NOTE | 2016-05-20 05:20 | NUR ---
GPS/RN NOTE: [facility] NOT AVAILABLE, NOT ADMINISTERED. FOLLOW-UP AND REQUEST FROM PHARMACY
[2016-05-20] MEDS: Z GUARD REMEDY 2 OZ OINT TP SCH ×2 (07:11→18:30)
[2016-05-20 08:00] VITALS: BP 143/78
[2016-05-20] MEDS: BOOST PLUS FOOD-VANILLA 237 ML BOX PO SCH ×2 (08:00→18:29)
[2016-05-20] MEDS: FAMOTIDINE (20 MG) 20 MG TABLET PO SCH (08:49)
[2016-05-20] MEDS: DIVALPROEX SODIUM 125 MG CAP.SPRINK PO SCH ×3 (08:49→18:28)
[2016-05-20] MEDS: ASPIRIN EC 325 MG TABLET.DR PO SCH (08:49)
[2016-05-20] MEDS: TAMSULOSIN 0.4 MG CAP.SR.24H PO SCH (08:49)
[2016-05-20] MEDS: CARBIDOPA/LEVODOPA 25/100 MG 1 UDTAB PO SCH ×3 (08:49→18:28)
[2016-05-20] MEDS: CYANOCOBALAMIN 500 MCG TABLET PO SCH (08:49)
[2016-05-20] MEDS: NEOMY SULF/BACITRAC ZN/POLY 15 GM TUBE TP SCH (08:50)
--- NOTE | 2016-05-20 12:33 | NUR ---
DINA spoke with pt's son, César [phone] last week and was provided with several facility informations and was asked to go tour. DINA also provided his information for the MD to speak with César, as he had many questions for the doctor. Today received a voicemail from César agreeing to discharge patient to [place] [id number] [facility] [address]; [phone] when pt. is ready for discharge.
--- NOTE | 2016-05-20 12:35 | NUR ---
Dong from [facility] [address] [facility] [address]; [phone] came to assess the patient. DINA will follow up with Dong regarding acceptance to the facility.
[2016-05-20 16:00] VITALS: BP 128/78
[2016-05-20 19:50] VITALS: BP 131/60
[2016-05-20] MEDS: QUETIAPINE FUMARATE 25 MG TABLET PO SCH (22:06)
[2016-05-20] MEDS: MIRTAZAPINE 15 MG TABLET PO SCH (22:06)
[2016-05-20] MEDS: ATORVASTATIN 10 MG TABLET PO SCH (22:06)
[2016-05-21] MEDS: PROPRANOLOL HCL 10 MG TABLET PO SCH ×2 (05:00→13:22)
[2016-05-21] MEDS: Z GUARD REMEDY 2 OZ OINT TP SCH (06:21)
[2016-05-21] MEDS: UREA 10% -AHA 4% CREAM 57 GM TUBE TP SCH (06:21)
[2016-05-21 08:00] VITALS: BP 132/76
[2016-05-21] MEDS: CARBIDOPA/LEVODOPA 25/100 MG 1 UDTAB PO SCH ×2 (09:48→13:04)
[2016-05-21] MEDS: TAMSULOSIN 0.4 MG CAP.SR.24H PO SCH (09:48)
[2016-05-21] MEDS: CYANOCOBALAMIN 500 MCG TABLET PO SCH (09:48)
[2016-05-21] MEDS: ASPIRIN EC 325 MG TABLET.DR PO SCH (09:48)
[2016-05-21] MEDS: DIVALPROEX SODIUM 125 MG CAP.SPRINK PO SCH ×2 (09:48→13:04)
[2016-05-21] MEDS: FAMOTIDINE (20 MG) 20 MG TABLET PO SCH (09:48)
[2016-05-21] MEDS: NEOMY SULF/BACITRAC ZN/POLY 15 GM TUBE TP SCH (09:49)
[2016-05-21] MEDS: BOOST PLUS FOOD-VANILLA 237 ML BOX PO SCH (09:51)
--- NOTE | 2016-05-21 15:51 | NUR ---
Discharge note: discharge to [facility] [address] [facility] [address]; [phone] via [facility] at 3:30PM. SonCésar is notified [phone] and agrees with the plan. Other sonJefe is [phone] is at bedside waiting for pt. to be transferred. RN has given a report to the accepting facility and discharge instructions have been provided. Discharge paperwork has been signed. Pt. is calm and cooperative and denies suicidal/homicidal ideations at this time.
[2016-05-21 16:00] VITALS: BP 122/51
--- NOTE | 2016-05-21 16:00 | NUR ---
DISCHARGE NOTES/ PATIENT GOING TO D/C SNF AT THIS TIME . PT A/O X2 MED COMPLIANT, V/S STABLE, MEDICALLY STABLE, MED COMPLIANT, NO C/O PAIN, V/S STABLE. PATIENT DENIED SI/HI/AVH AT THIS TIME. MED RECONCILIATION, AND DISCHARGE ORDER REVIEWED AND EXPLAINED TO. REPORT GIVEN SNF BLADIMIR COREY. RN VERBALIZED UNDERSTANDING. BELONGING RETURNED BACK TO THE PATIENT. PATIENT DIRECTOR OF CONVENTION SERVICES BY AMBULANCE.
== END 2016-05-21 16:46 | DRG 885 ==
LOC: GPS 16:19
PROVIDERS: ADMIT Psychiatry & Neurology Psychiatry; ATTEND Family Medicine
DX: F39 Unspecified mood [affective] disorder (principal); F01.51 Vascular dementia, unspecified severity, with behavioral disturbance; N17.0 Acute kidney failure with tubular necrosis; G93.40 Encephalopathy, unspecified; F32.9 Major depressive disorder, single episode, unspecified; Z91.81 History of falling; F41.9 Anxiety disorder, unspecified; I10 Essential (primary) hypertension; K21.9 Gastro-esophageal reflux disease without esophagitis; N40.0 Benign prostatic hyperplasia without lower urinary tract symptoms; R29.6 Repeated falls; Z95.0 Presence of cardiac pacemaker; D64.9 Anemia, unspecified; G20 Parkinson's disease; L98.9 Disorder of the skin and subcutaneous tissue, unspecified; S81.802A Unspecified open wound, left lower leg, initial encounter; S81.801A Unspecified open wound, right lower leg, initial encounter; X58.XXXA Exposure to other specified factors, initial encounter; Y93.9 Activity, unspecified; Y92.89 Other specified places as the place of occurrence of the external cause; Y99.9 Unspecified external cause status; E83.42 Hypomagnesemia
CPT/HCPCS: 36415; 80048-TC; 80053-TC; 80061-TC; 87081-TC; 92526; 92611-TC; 97001-TC; 97003-TC; 97110-TC; 97116-TC; 97530-TC; 97535-TC

== ENCOUNTER 2016-06-03 21:37 | Inpatient (IN) | payer MEDICARE, MEDICAID ==
[~2016-06-03] VITALS: Ht 167.6 cm; Wt 52.6 kg
[~2016-06-03 21:37] MED LIST changes: -ATOR10TA PO; +ATOR20TA PO; +CARB-93 PO; -Carbidopa/Levodopa PO; -ESCI5TAB PO; +FAMO20TA8 PO; -GABA100C PO; -MIRT15TA PO; -NEOM15OI3 TP; -RANI150C4 PO
--- NOTE | 2016-06-03 21:51 | NUR ---
FROM [facility] HERE FOR "RECTAL BLEED X2 TODAY" DENIES ABD PAIN/N/V. PT UNABLE TO MAKE NEEDS MADE, AO TO NAME. SON AT BEDSIDE TO TRANSLATE. RR EVEN AND UNLABORED. NO SOB NOTED. NAD NOTED. NO NVD AT THIS TIME. PT GOWNED AND PLACED ON MONITOR WAITING FOR MD ALEXANDER.
[2016-06-03] MEDS ORDERED: IV NS 0.9% 1,000 ML BAG IV ONE (22:30)
[2016-06-03] MEDS ORDERED: IV NS 0.9% 1,000 ML ONE (22:32)
[2016-06-03] MEDS ORDERED: IV SET PRIMARY 1 EA INFUS.SET MC ONE (22:32)
--- NOTE | 2016-06-03 22:38 | NUR ---
PT TO CT.
[2016-06-03 22:40] LABS: BASOPHILS % (AUTO) 0.6 % (0.0-2.0); EOSINOPHILS % (AUTO) 0.5 % (0.0-6.0); HEMATOCRIT 40 % (39-51); HEMOGLOBIN 13.5 g/dL (13.5-17.5); LYMPHOCYTES # (AUTO) 1.1 /CMM (0.8-4.8); LYMPHOCYTES % (AUTO) 12.6 % (20.0-44.0); MEAN CORPUSCULAR HEMOGLOBIN 31 PG (26.0-33.0); MEAN CORPUSCULAR HGB CONC 34 g/dl (31.0-36.0); MEAN CORPUSCULAR VOLUME 92 fL (80-96); MONOCYTES # (AUTO) 0.7 /CMM (0.1-1.30); MONOCYTES % (AUTO) 8.2 % (2.0-12.0); NEUTROPHILS # (AUTO) 6.5 /CMM (1.8-8.9); NEUTROPHILS % (AUTO) 78.1 % (43.0-81.0); PLATELET COUNT (AUTO) 185 /CMM (150-450); RDW COEFFICIENT OF VARIATION 14.2 (11.5-15.0); RED BLOOD CELL COUNT(AUTO) 4.34 MIL/uL (4.5-6.0); WHITE BLOOD COUNT (AUTO) 8.4 K/uL (4.3-11.0)
[2016-06-03 22:53] LABS: CALCIUM, SERUM 8.7 mg/dL (8.5-10.1); CARBON DIOXIDE 29 mmol/L (21-32); CHLORIDE 105 mmol/L (98-107); GLUCOSE 108 mg/dL (74-106); POTASSIUM 3.8 mmol/L (3.5-5.1); SODIUM SERUM 139 mmol/L (136-145); UREA NITROGEN, BLOOD 31 mg/dL (7-18)
[2016-06-03 22:59] LABS: ALANINE AMINOTRANSFERASE 18 U/L (12-78); ALBUMIN 3.1 g/dL (3.4-5.0); ALKALINE PHOSPHATASE 89 U/L (46-116); ASPARTATE AMINOTRANSFERASE 19 U/L (15-37); BILIRUBIN,DIRECT 0.1 mg/dL (0.0-0.2); BILIRUBIN,TOTAL 0.6 mg/dL (0.2-1.0); INR 1.06 (0.87-1.13); LIPASE 63 U/L (73-393); PROTHROMBIN TIME 11.4 SECS (9.5-12.7); TOTAL PROTEIN, SERUM 6.9 g/dL (6.4-8.2)
[2016-06-03 23:00] LABS: LACTIC ACID 1.9 mmol/L (0.4-2.0); TROPONIN I < 0.017 ng/mL (0.00-0.056)
--- NOTE | 2016-06-03 23:12 | NUR ---
PT RETURNED FROM CT.
[2016-06-04] VITALS (7 sets, daily range): BP systolic 104–121; BP diastolic 50–74
--- NOTE | 2016-06-04 00:05 | NUR ---
SON REFUSED V/S. RISK AND BENEFITS EXPLAINED X3. SON STRONGLY REFUSED, STATES "I DONT THINK HIS BP IS AN ISSUE"
--- NOTE | 2016-06-04 00:07 | NUR ---
DR. FERRERA AT BEDSIDE SPEAKING TO PT FAMILY REGARDING RESULTS.
[2016-06-04] MEDS ORDERED: NA PHOS,M-B/NA PHOS,DI-BA 1 EA ENEMA RC STA (00:24)
[2016-06-04] MEDS ORDERED: IV NS 0.9% 1,000 ML IV PRN (00:24)
[2016-06-04] MEDS ORDERED: BISACODYL SUPP (10 MG) 10 MG/SUPP.RECT SUPP.RECT RC PRN (00:30)
[2016-06-04] MEDS ORDERED: ONDANSETRON HCL/PF 4 MG/2 ML VIAL IVP PRN (00:30)
[2016-06-04] MEDS ORDERED: Z GUARD REMEDY 2 OZ OINT TP PRN (00:30)
[2016-06-04] MEDS ORDERED: LACTULOSE 10 G/15 ML UDC (PYXIS) PO PRN (00:30)
[2016-06-04] MEDS ORDERED: ZOLPIDEM TARTRATE 5 MG TABLET PO PRN (00:30)
[2016-06-04] MEDS ORDERED: MAGNESIUM HYDROXIDE 30 ML UDC PO PRN (00:30)
--- NOTE | 2016-06-04 00:36 | NUR ---
REPORT GIVEN TO BLADIMIR HENRY FOR TELE [id number]
--- NOTE | 2016-06-04 00:37 | NUR ---
RECEIVED REPORT FROM DEIDRA REGARDING NEW ADMISSION, MALE, 85 YRS OLD FROM [facility]. AWAITING ARRIVAL IN UNIT, ROOM IS READY
--- NOTE | 2016-06-04 01:00 | NUR ---
MAYRA AT BEDSIDE
--- NOTE | 2016-06-04 01:35 | NUR ---
NEW ADMISSION WITH DX OF INTERNAL HEMORRHOID BLEEDING, OBSTIPATION/CONSTIPATION, ALERT AND AWAKE, CONFUSED, MUMBLES TO SELF, NO SOB, NO RESPIRATORY DISTRESS, 02 SAT AT ROOM AIR 99%, UNABLE TO VERBALIZE NEEDS, NOTED RECTAL PAIN DURING DIAPER CHANGE. TREMORS TO BILATERAL UPPER EXTREMITIES, WITH HX OF PARKINSON'S. ABDOMEN SOFT AND NON-TENDER, BUTTOCKS WITH REDNESS, NOTED SCABS TO BILATERAL LOWER EXTREMITIES. LEFT FA 18 IS PATENT AND INTACT. UNABLE TO ORIENT TO ROOM AND CALL LIGHT SECONDARY TO CONFUSION. KEPT HOB ELEVATED, ON ASPIRATION PRECAUTION, AWAITING BM.
[2016-06-04] MEDS ORDERED: SENNOSIDES 8.6 MG TABLET ONE (01:39)
[2016-06-04] MEDS ORDERED: NA PHOS,M-B/NA PHOS,DI-BA 1 EA ENEMA RC ONE (01:40)
--- NOTE | 2016-06-04 01:48 | NUR ---
PT TRANSFERED T0 MS BED 323-2 VIA [facility]
[2016-06-04] MEDS: SENNOSIDES 8.6 MG TABLET PO SCH ×2 (01:52→21:30)
--- NOTE | 2016-06-04 01:52 | NUR ---
GIVEN SENNA AND FLEET ENEMA ORDERED, AWAITING BM.
--- NOTE | 2016-06-04 02:15 | NUR ---
PATIENT HAS BM, SOFT, BROWNISH AND YELLOWISH STOOL. GOOD PERINEAL CARE RENDERED. WILL CONTINUE TO MONITOR.
[2016-06-04] MEDS ORDERED: ACETAMINOPHEN 325 MG TABLET ONE (02:40)
[2016-06-04] MEDS ORDERED: IV SET PRIMARY PUMP SET 1 EA INFUS.SET MC ONE (02:48)
[2016-06-04] MEDS ORDERED: IV NS 0.9% 1,000 ML ONE (02:48)
[2016-06-04] MEDS: ACETAMINOPHEN 325 MG TABLET PO PRN ×2 (02:49→21:46)
[2016-06-04] MEDS ORDERED: PROPRANOLOL HCL 10 MG TABLET ONE (04:09)
[2016-06-04] MEDS ORDERED: PROPRANOLOL HCL 10 MG TABLET PO SCH (05:00)
--- NOTE | 2016-06-04 06:43 | NUR ---
PATIENT IS ALERT AND AWAKE, MUMBLES TO SELF, NO SOB, 02 SAT AT ROOM AIR 98%, PAIN NOTED DURING DIAPER CHANGE SECONDARY TO HEMORRHOIDS, NO BLEEDING NOTED TO RECTUM, NO BLOODY STOOL, TREMORS NOTED, LEFT FA PERIPHERAL LINE IS INFUSING WELL, ASPIRATION PRECAUTION, ALL DUE MEDICATIONS GIVEN, KEPT SAFE AND COMFORTABLE, CALL LIGHT WITHIN REACH.
--- NOTE | 2016-06-04 07:20 | NUR ---
RN NOTES PATIENT IS ALERT AND AWAKE, MUMBLES TO SELF, NO SOB, 02 SAT AT ROOM AIR 98%, IN NO APPARENT PAIN OR DISCOMFORT,TREMORS NOTED, LEFT FA PERIPHERAL LINE IS INFUSING WELL NO REDNESS OR INFILTRATION NOTED, ASPIRATION PRECAUTIONS, KEPT SAFE AND COMFORTABLE, CALL LIGHT WITHIN REACH WILL CONTINUE TO MONITOR
[2016-06-04 07:34] LABS: BASOPHILS % (AUTO) 0.2 % (0.0-2.0); EOSINOPHILS % (AUTO) 0.7 % (0.0-6.0); HEMATOCRIT 37 % (39-51); HEMOGLOBIN 12.5 g/dL (13.5-17.5); LYMPHOCYTES # (AUTO) 1.1 /CMM (0.8-4.8); LYMPHOCYTES % (AUTO) 15.6 % (20.0-44.0); MEAN CORPUSCULAR HEMOGLOBIN 32 PG (26.0-33.0); MEAN CORPUSCULAR HGB CONC 34 g/dl (31.0-36.0); MEAN CORPUSCULAR VOLUME 92 fL (80-96); MONOCYTES # (AUTO) 0.8 /CMM (0.1-1.30); MONOCYTES % (AUTO) 10.6 % (2.0-12.0); NEUTROPHILS # (AUTO) 5.3 /CMM (1.8-8.9); NEUTROPHILS % (AUTO) 72.9 % (43.0-81.0); PLATELET COUNT (AUTO) 153 /CMM (150-450); RED BLOOD CELL COUNT(AUTO) 3.98 MIL/uL (4.5-6.0); WHITE BLOOD COUNT (AUTO) 7.3 K/uL (4.3-11.0)
[2016-06-04 07:46] LABS: CALCIUM, SERUM 8.2 mg/dL (8.5-10.1); CREATININE 0.9 mg/dL (0.6-1.3); MAGNESIUM 1.8 mg/dL (1.8-2.4); PHOSPHORUS 3.2 mg/dL (2.5-4.9); POTASSIUM 3.8 mmol/L (3.5-5.1)
[2016-06-04] MEDS: TAMSULOSIN 0.4 MG CAP.SR.24H PO SCH (08:55)
[2016-06-04] MEDS: FAMOTIDINE (20 MG) 20 MG TABLET PO SCH (08:56)
[2016-06-04] MEDS: CARBIDOPA/LEVODOPA 25/100 MG 1 UDTAB PO SCH ×3 (08:56→16:55)
[2016-06-04] MEDS: PROPRANOLOL HCL 10 MG TABLET PO SCH ×2 (12:22→21:30)
[2016-06-04] MEDS ORDERED: LORAZEPAM 0.5 MG TABLET PO PRN (13:30)
--- NOTE | 2016-06-04 19:37 | NUR ---
RN NOTES PATIENT IS ALERT AND AWAKE, MUMBLES TO SELF, NO SOB, 02 SAT AT ROOM AIR 98%, IN NO APPARENT PAIN OR DISCOMFORT,TREMORS NOTED, LEFT FA PERIPHERAL LINE IS INFUSING WELL NO REDNESS OR INFILTRATION NOTED, ASPIRATION PRECAUTIONS, KEPT SAFE AND COMFORTABLE, CALL LIGHT WITHIN REACH ENDORSED TO NEXT SHIFT FOR CONTINUITY OF CARE
--- NOTE | 2016-06-04 20:04 | NUR ---
RECEIVED PATIENT IN BED, ALERT AND AWAKE, CONFUSED, TREMORS NOTED, NO SOB, NO RESPIRATORY DISTRESS, LUNG SOUNDS ARE CLEAR, ON ROOM AIR O2 SAT 98%, UNABLE TO VERBALIZE NEEDS, ABDOMEN SOFT AND NON-TENDER, ACTIVE BOWEL SOUNDS, LEFT FA SALINE LOCK IS PATENT AND FLUSHED. ASPIRATION PRECAUTION, KEPT HOB ELEVATED, REPOSITIONED FOR COMFORT, CALL LIGHT WITHIN REACH.
[2016-06-04 20:17] LABS: THYROID STIMULATING HORMONE 1.31 uIU/mL (0.358-3.74); URIC ACID 3.9 mg/dL (2.6-7.2)
[2016-06-04] MEDS ORDERED: ATORVASTATIN 10 MG TABLET PO SCH (22:00)
--- NOTE | 2016-06-04 23:28 | NUR ---
TEMPERATURE TAKEN, 98.3F, KEPT COMFORTABLE, CALL LIGHT WITHIN REACH.
--- NOTE | 2016-06-05 06:42 | NUR ---
PATIENT IS ALERT AND AWAKE, NO SOB, NO DISTRESS, NOT IN APPARENT PAIN, TREMORS NOTED, WITH EPISODES OF RESISTING NURSING CARE, LEFT FA SALINE LOCK IS PATENT, NO RECTAL BLEEDING NOTED, HAD X3 BM, SOFT AND YELLOWISH STOOL, COMPLIANT WITH MEDICATION, ABLE TO SWALLOW MEDICATION WITHOUT COUGHING. NEEDS ATTENDED, CALL LIGHT WITHIN REACH.
[2016-06-05 06:45] LABS: BASOPHILS % (AUTO) 0.2 % (0.0-2.0); EOSINOPHILS # (AUTO) 0.1 /CMM (0.0-0.7); HEMATOCRIT 36 % (39-51); HEMOGLOBIN 12.2 g/dL (13.5-17.5); LYMPHOCYTES # (AUTO) 0.9 /CMM (0.8-4.8); LYMPHOCYTES % (AUTO) 15.9 % (20.0-44.0); MEAN CORPUSCULAR HEMOGLOBIN 31 PG (26.0-33.0); MEAN CORPUSCULAR HGB CONC 34 g/dl (31.0-36.0); MEAN CORPUSCULAR VOLUME 91 fL (80-96); MONOCYTES # (AUTO) 0.5 /CMM (0.1-1.30); MONOCYTES % (AUTO) 10.1 % (2.0-12.0); NEUTROPHILS # (AUTO) 3.9 /CMM (1.8-8.9); NEUTROPHILS % (AUTO) 71.8 % (43.0-81.0); PLATELET COUNT (AUTO) 148 /CMM (150-450); RDW COEFFICIENT OF VARIATION 13.6 (11.5-15.0); RED BLOOD CELL COUNT(AUTO) 3.93 MIL/uL (4.5-6.0); WHITE BLOOD COUNT (AUTO) 5.4 K/uL (4.3-11.0)
[2016-06-05 06:54] LABS: ALBUMIN 2.4 g/dL (3.4-5.0); BILIRUBIN,TOTAL 0.7 mg/dL (0.2-1.0); CREATININE 0.8 mg/dL (0.6-1.3); MAGNESIUM 1.8 mg/dL (1.8-2.4); POTASSIUM 3.4 mmol/L (3.5-5.1); TOTAL PROTEIN, SERUM 5.7 g/dL (6.4-8.2)
[2016-06-05 07:07] LABS: THYROID STIMULATING HORMONE 2.106 uIU/mL (0.358-3.74)
--- NOTE | 2016-06-05 07:30 | NUR ---
RN MS NOTES PT IN BED, ASLEEP, EASY TO AROUSE, ALERT, NO SIGN OF PAIN OR DISTRESS, CALL LIGHT WITHIN REACH, KEPT WARM AND COMFORTABLE IN BED.
[2016-06-05 08:00] VITALS: BP 112/54
[2016-06-05] MEDS: FAMOTIDINE (20 MG) 20 MG TABLET PO SCH (08:24)
[2016-06-05] MEDS: TAMSULOSIN 0.4 MG CAP.SR.24H PO SCH (08:24)
[2016-06-05] MEDS: CARBIDOPA/LEVODOPA 25/100 MG 1 UDTAB PO SCH (08:24)
[2016-06-05 09:00] VITALS: BP 112/54
[2016-06-05] MEDS ORDERED: PSYLLIUM SEED 1 PKT PACKET PO SCH (09:00)
[2016-06-05] MEDS: PROPRANOLOL HCL 10 MG TABLET PO SCH (09:00)
[2016-06-05] MEDS ORDERED: POTASSIUM CHLORIDE 20 MEQ TAB.PRT.SR PO SCH (11:30)
--- NOTE | 2016-06-05 12:57 | NUR ---
RN MS NOTES PT IN BED, AWAKE, ALERT TO SELF, WITH CONFUSION, ASSISTED WITH MEALS, NO SIGN OF PAIN OR DISCOMFORT, BREATHING PATTERN NORMAL, SEEN BY DR. DONG AND DR. FULTON, DISCHARGE ORDER GIVEN, PT'S SON JESSE INFORMED OF PT'S DISCHARGE BACK TO [facility], NO FURTHER RECTAL BLEEDING NOTED, PT NOTED TO HAVE NORMAL BOWEL MOVEMENTS, CALLED [facility], DISCHARGE REPORT AND MEDICATION INSTRUCTIONS GIVEN TO BLADIMIR GARCIA ADMITTING NURSE, VERBALIZED UNDERSTANDING, PT HAVE NO BELONGINGS, PICKED UP BY 2 AMBULANCE PERSONNEL, LEFT VIA GUERNEY IN STABLE CONDITON, PT'S SON JESSE INFORMED OF PT'S TRANSFER.
[2016-06-06 12:16] LABS: CARCINOEMBRYONIC AG (CEA) 1.7 ng/mL (0.0-4.7)
== END 2016-06-05 12:55 | DRG 379 ==
LOC: ER 21:38 → TELE 06-04 00:21 → MED 06-04 02:08
PROVIDERS: ADMIT Nurse Practitioner Acute Care; ATTEND Nurse Practitioner Acute Care
DX: K92.1 Melena (principal); E11.9 Type 2 diabetes mellitus without complications; F02.80 Dementia in other diseases classified elsewhere, unspecified severity, without behavioral disturbance, psychotic disturbance, mood disturbance, and anxiety; G30.9 Alzheimer's disease, unspecified; G20 Parkinson's disease; I10 Essential (primary) hypertension; E53.8 Deficiency of other specified B group vitamins; E78.5 Hyperlipidemia, unspecified; I25.10 Atherosclerotic heart disease of native coronary artery without angina pectoris; J44.9 Chronic obstructive pulmonary disease, unspecified; K21.9 Gastro-esophageal reflux disease without esophagitis; Z91.81 History of falling; Z95.0 Presence of cardiac pacemaker; N40.0 Benign prostatic hyperplasia without lower urinary tract symptoms; L53.8 Other specified erythematous conditions; K59.00 Constipation, unspecified; D64.9 Anemia, unspecified; L89.621 Pressure ulcer of left heel, stage 1; L89.611 Pressure ulcer of right heel, stage 1; R23.4 Changes in skin texture; L85.3 Xerosis cutis; L57.0 Actinic keratosis; L98.8 Other specified disorders of the skin and subcutaneous tissue
CPT/HCPCS: 36415; 71010-TC; 76705-TC; 80048-TC; 80053-TC; 80061-TC; 80076-TC; 82306; 82378; 82728-TC; 82746; 83605-TC; 83690-TC; 83735-TC; 84100-TC; 84443-TC; 84484-TC; 84550-TC; 85025-TC; 85652-TC; 85730-TC; 86850-TC; 87040-TC; 87081-TC; 92611-TC; A4606; J7030; Z7610

== ENCOUNTER 2016-06-19 17:46 | Inpatient (IN) | payer MEDICARE, MEDICAID ==
[~2016-06-19] VITALS: Ht 165.1 cm; Wt 49.9 kg
--- NOTE | 2016-06-19 18:00 | NUR ---
PT SHONA FROM [facility] FOR WEAKNESS AND DESATED AT 88%. CURRENTLY ON OXYGEN VIA NC SATING AT 95%. AT FOR EVAL. PT AMS. FEBRILE. SAFETY AND COMFORT MEASURES PROVIDED. WILL MONITOR.
[2016-06-19 18:18] LABS: BASOPHILS # (AUTO) 0.1 /CMM (0.0-0.2); BASOPHILS % (AUTO) 2.1 % (0.0-2.0); HEMATOCRIT 40 % (39-51); HEMOGLOBIN 13.2 g/dL (13.5-17.5); LYMPHOCYTES # (AUTO) 0.6 /CMM (0.8-4.8); MEAN CORPUSCULAR HEMOGLOBIN 30 PG (26.0-33.0); MEAN CORPUSCULAR HGB CONC 34 g/dl (31.0-36.0); MEAN CORPUSCULAR VOLUME 91 fL (80-96); MONOCYTES # (AUTO) 0.5 /CMM (0.1-1.30); MONOCYTES % (AUTO) 8.7 % (2.0-12.0); NEUTROPHILS # (AUTO) 4.3 /CMM (1.8-8.9); NEUTROPHILS % (AUTO) 79.2 % (43.0-81.0); PLATELET COUNT (AUTO) 245 /CMM (150-450); RDW COEFFICIENT OF VARIATION 13.4 (11.5-15.0); RED BLOOD CELL COUNT(AUTO) 4.34 MIL/uL (4.5-6.0); WHITE BLOOD COUNT (AUTO) 5.5 K/uL (4.3-11.0)
[2016-06-19] MEDS ORDERED: ACETAMINOPHEN 650 MG/SUPP.RECT RC ONE ×2 (18:20→18:30)
[2016-06-19] MEDS ORDERED: IV NS 0.9% 1,000 ML ONE (18:20)
[2016-06-19] MEDS ORDERED: IV SET PRIMARY PUMP SET 1 EA INFUS.SET MC ONE ×3 (18:20→19:38)
--- NOTE | 2016-06-19 18:20 | NUR ---
XRAY DONE AT BS.
[2016-06-19] MEDS ORDERED: IV NS 0.9% 1,000 ML BAG IV ONE (18:30)
[2016-06-19 18:31] LABS: CALCIUM, SERUM 8.4 mg/dL (8.5-10.1); CARBON DIOXIDE 29 mmol/L (21-32); CHLORIDE 113 mmol/L (98-107); CREATININE 1.2 mg/dL (0.6-1.3); GLUCOSE 144 mg/dL (74-106); POTASSIUM 3.6 mmol/L (3.5-5.1); SODIUM SERUM 150 mmol/L (136-145); UREA NITROGEN, BLOOD 30 mg/dL (7-18)
[2016-06-19 18:32] LABS: INR 1.19 (0.87-1.13); PROTHROMBIN TIME 12.5 SECS (9.5-12.7)
[2016-06-19 18:36] LABS: ALANINE AMINOTRANSFERASE 23 U/L (12-78); ALKALINE PHOSPHATASE 55 U/L (46-116); ASPARTATE AMINOTRANSFERASE 21 U/L (15-37); BILIRUBIN,DIRECT 0.2 mg/dL (0.0-0.2); BILIRUBIN,TOTAL 0.6 mg/dL (0.2-1.0)
--- NOTE | 2016-06-19 18:40 | NUR ---
PT MEDICATED ORDERED. URINE SAMPLE OBTAINED, SENT.
[2016-06-19 18:43] LABS: LACTIC ACID 1.6 mmol/L (0.4-2.0); TROPONIN I < 0.017 ng/mL (0.00-0.056)
[2016-06-19 18:57] LABS: APPEARANCE,URINE Clear (CLEAR); BILIRUBIN,URINE SMALL (NEGATIVE); BLOOD, URINE Negative Ery/uL (NEGATIVE); COLOR,URINE Yellow (YELLOW); KETONES,URINE Negative (NEGATIVE); LEUKOCYTE ESTERASE ,URINE Negative (NEGATIVE); NITRITE, URINE Negative (NEGATIVE); PH,URINE 5.5 (5.0-8.0); PROTEIN,URINE 100 mg/dl (NEGATIVE); UGLUCOSE Negative (NEGATIVE); UROBILINOGEN,URINE 0.2 EU/dL (0.2)
--- NOTE | 2016-06-19 19:25 | NUR ---
RT AT FOR ABG.
--- NOTE | 2016-06-19 19:26 | NUR ---
Assumed care of pt. pt resting comfortably in bed w/ resp even & unlabored, on continuous 4 l/min O2 via NC, pulse-ox w/ cardiac monitoring. TICKET COLLECTOR at bedside for ABG draw. Family at bedside.
[2016-06-19] MEDS ORDERED: CEFEPIME 1 GM in IV D5W 50 ML IV ONE (19:30)
[2016-06-19] MEDS ORDERED: VANCOMYCIN 1 GM in IV D5W 250 ML IV ONE (19:30)
[2016-06-19 19:35] LABS: ABG BASE EXCESS 1.5 mmol/L; ABG OXYGEN SATURATION 94.8 % (92.0-98.5); ABG PCO2 31.9 mmHg (35.0-45.0); ABG PH 7.497 (7.350-7.450); ABG TOTAL HEMOGLOBIN 12.5 G/dL (13.5-18.0); AaDO2 113.8 mmHg; COHb 0.4 % (0.5-1.5); MetHb 0.3 % (0.0-1.5); O2Hb 94.1 % (94.0-97.0); SITE, ABG Right Radial; VENT MODE, BG 3L NC
[2016-06-19 19:48] LABS: ADD URINE CULTURE NO; BACTERIA,URINE Rare /HPF (None Seen); MUCUS,URINE Many /LPF (None Seen); RBC,URINE NONE SEEN /HPF (0-2); SQUAMOUS EPITHELIAL CELL,UR Few /HPF (None Seen); URINE AMORPHOUS URATE Moderate /HPF (None Seen); WBC,URINE 0-2 /HPF (0-3)
--- NOTE | 2016-06-19 20:26 | NUR ---
pt transferred via ALS protocol to tele rm 327-2. Resp even & unlabored, asleep in bed w/ nad noted.
[2016-06-19 20:45] VITALS: BP 139/72
--- NOTE | 2016-06-19 20:45 | NUR ---
TELE/BLAST HOLE DRILLER; ADMITTED 85 YEARS OLD MALE PT FROM ER VIA GURNEY ACCOMPANIED BY ER STAFFS AND CHILDREN. PT NON VERBAL BUT OPEN EYES. DX ; PNEUMONIA. MANAS CHRISTENSEN BATTERY CONTAINER TESTER WITH THE PT AND TALKING TO THE PT'S CHILDREN. PT WITH SCABS BLE. BOTH KNEES, REDNESS RT ELBOW, SACRAL. INFORMATIONS WERE GIVEN BY THE SON JESSE. BED ON LOWER POSITION AND LOCKED FOR SAFETY. SIDE RAILS ARE UP FOR SAFETY.
[2016-06-19] MEDS ORDERED: ACETAMINOPHEN 325 MG TABLET PO PRN (21:00)
[2016-06-19] MEDS ORDERED: CEFEPIME 2 GM in IV D5W 100 ML IV SCH (21:00)
[2016-06-19] MEDS ORDERED: ONDANSETRON HCL/PF 4 MG/2 ML VIAL IVP PRN (21:00)
[2016-06-19] MEDS ORDERED: MAGNESIUM HYDROXIDE 30 ML UDC PO PRN (21:00)
[2016-06-19] MEDS ORDERED: MAG HYDROX/AL HYDROX/SIMETH 30 ML UDC PO PRN (21:00)
[2016-06-19] MEDS ORDERED: LEVOFLOXACIN 750 MG /D5W 150ML 750 MG in PREMIX 1 EA IV SCH (21:00)
[2016-06-19] MEDS ORDERED: HYDROCODONE/APAP 5/325MG 1 EACH TABLET PO PRN (21:00)
[2016-06-19] MEDS ORDERED: Z GUARD REMEDY 2 OZ OINT TP PRN (21:00)
[2016-06-19] MEDS ORDERED: LEVOFLOXACIN 750 MG /D5W 150ML 150 ML IV ONE (21:44)
--- NOTE | 2016-06-19 21:45 | NUR ---
TELE/MANTEL CRAFTSMAN; ORDERS CARRIED. ON TELEMETRY.
[2016-06-19] MEDS ORDERED: IV D5W 1,000 ML IV ONE (21:52)
[2016-06-19] MEDS ORDERED: SECONDARY IV SET 1 EA INFUS.SET MC ONE (21:52)
[2016-06-19] MEDS: IV D5W 1,000 ML IV PRN (22:01)
[2016-06-20] VITALS: BP 116/66
[2016-06-20 04:00] VITALS: BP 124/78
--- NOTE | 2016-06-20 07:00 | NUR ---
TELE/FIELD CROP TECHNICAL OFFICER; SLEPT FAIRLY. INCONTINENT URINE. PERINEAL CARE DONE . TURNED AND REPOSITIONED. PLACED ON DVT PUMP TO LOWER LEGS. ON NPO OBSERVED. WILL ENDORSE TO THE DAY SHIFT NURSE.
[2016-06-20 07:03] VITALS: BP 120/78
--- NOTE | 2016-06-20 07:20 | NUR ---
TELE/RN AM NOTES RECEIVED PATIENT IN BED, AWAKE, ALERT, WITHOUT SOB, OXYGEN IN PLACE DELIVERING 2L/M N/C SATURATION 95l%. TELE MONITOR ATTACHED HR 88, SINUS RHYTHM. HOB ELEVATED FOR COMFORT. IV LINE INTACT RIGHT HAND, PATENT. PATIENT REMAINS NPO, PER OEM SALES MANAGER REPORT, D/T ASPIRATION PRECAUTION. DENIES PAIN. BED IN LOW POSITION, 2 SR UP FOR SAFETY, WITH CALL LIGHT WITHIN EASY REACH. WILL CONTINUE TO MONITOR ACCORDINGLY.
[2016-06-20 08:21] LABS: BASOPHILS % (AUTO) 0.2 % (0.0-2.0); HEMATOCRIT 36 % (39-51); LYMPHOCYTES # (AUTO) 0.7 /CMM (0.8-4.8); LYMPHOCYTES % (AUTO) 10.9 % (20.0-44.0); MEAN CORPUSCULAR HEMOGLOBIN 31 PG (26.0-33.0); MEAN CORPUSCULAR HGB CONC 34 g/dl (31.0-36.0); MEAN CORPUSCULAR VOLUME 92 fL (80-96); MONOCYTES # (AUTO) 0.3 /CMM (0.1-1.30); MONOCYTES % (AUTO) 5.1 % (2.0-12.0); NEUTROPHILS # (AUTO) 5.3 /CMM (1.8-8.9); NEUTROPHILS % (AUTO) 83.8 % (43.0-81.0); PLATELET COUNT (AUTO) 221 /CMM (150-450); RDW COEFFICIENT OF VARIATION 14.6 (11.5-15.0); RED BLOOD CELL COUNT(AUTO) 3.87 MIL/uL (4.5-6.0); WHITE BLOOD COUNT (AUTO) 6.3 K/uL (4.3-11.0)
[2016-06-20] MEDS ORDERED: FEE PK DOSING 1 MIN EA MC ONE (08:21)
[2016-06-20 08:41] LABS: CALCIUM, SERUM 8.1 mg/dL (8.5-10.1); CARBON DIOXIDE 28 mmol/L (21-32); CHLORIDE 114 mmol/L (98-107); CREATININE 0.9 mg/dL (0.6-1.3); GLUCOSE 110 mg/dL (74-106); MAGNESIUM 1.9 mg/dL (1.8-2.4); PHOSPHORUS 2.6 mg/dL (2.5-4.9); POTASSIUM 3.5 mmol/L (3.5-5.1); SODIUM SERUM 149 mmol/L (136-145); UREA NITROGEN, BLOOD 28 mg/dL (7-18)
[2016-06-20] MEDS ORDERED: PETROLATUM,WHITE PACKET 5 GM PACKET TP PRN (09:00)
[2016-06-20] MEDS: CARBIDOPA/LEVODOPA 25/100 MG 1 UDTAB PO SCH ×3 (09:00→17:43)
[2016-06-20] MEDS: TAMSULOSIN 0.4 MG CAP.SR.24H PO SCH (09:00)
[2016-06-20] MEDS: ASPIRIN EC 325 MG TABLET.DR PO SCH (09:00)
[2016-06-20] MEDS: FAMOTIDINE (20 MG) 20 MG TABLET PO SCH (09:00)
[2016-06-20] MEDS: CYANOCOBALAMIN 500 MCG TABLET PO SCH (09:00)
[2016-06-20 09:01] LABS: CHOLESTEROL 62 mg/dL (<200); LDL 33 mg/dL (0-99); THYROID STIMULATING HORMONE 0.225 uIU/mL (0.358-3.74); TRIGLYCERIDES 81 mg/dL (30-150)
[2016-06-20 09:18] LABS: HDL CHOLESTEROL < 10 mg/dL (40-60)
[2016-06-20 10:00] VITALS: BP 120/78
--- NOTE | 2016-06-20 10:00 | NUR ---
RN NOTES METICULOUS MOUTH CARE PROVIDED, SIPS OF WATER GIVEN PER FAMILY REQUEST, DOCTOR ANDONIAN AWARE, TOLERATED WELL, ABLE TO SWALLOW WITHOUT S/SX ASPIRATION, HOB HIGH FOWLERS POSITION, WILL CONTINUE TO MONITOR
[2016-06-20 11:28] LABS: IRON, SERUM 37 ug/dl (50-175); TOTAL IRON BINDING CAPACITY 83 ug/dl (250-450)
[2016-06-20 11:33] LABS: TROPONIN I < 0.017 ng/mL (0.00-0.056)
[2016-06-20 12:02] LABS: FERRITIN 1597 ng/mL (8-388)
[2016-06-20] MEDS: PROPRANOLOL HCL 10 MG TABLET PO SCH ×2 (13:00→20:45)
[2016-06-20] MEDS: VANCOMYCIN 0.75 GM in IV D5W 250 ML IV SCH (13:57)
[2016-06-20] MEDS ORDERED: SECONDARY IV SET 1 EA INFUS.SET MC ONE ×2 (14:13→20:11)
[2016-06-20 16:00] VITALS: BP 155/77
--- NOTE | 2016-06-20 16:45 | NUR ---
RN NOTES PATIENT IS AWAKE, ALERT, VERBALLY RESPONSIVE, VERBALIZING BEEN HUNGRY, FAMILY AT THE BEDSIDE, ST THERAPY PENDING. INFORMED DR. MANTILLA ABOUT PATIENT AND FAMILY REQUEST FOR MEAL, ORDER RECEIVED TO START PUREE DIET, EDUCATED PATIENT, AND FAMILY ABOUT ASPIRATION PRECAUTIONS, VERBALIZED UNDERSTANDING. WILL CONTINUE TO MONITOR CLOSELY.
--- NOTE | 2016-06-20 17:38 | NUR ---
RN NOTES FED PATIENT DINNER MEAL, TOLERATED WELL, 30 %, BED IN HIGH FOWLERS POSITION, NO S/SX ASPIRATION, NO COUGHING, SON AT THE BEDSIDE, WATER TOLERATED WELL
--- NOTE | 2016-06-20 19:01 | NUR ---
MS/RN CLOSING NOTES PATIENT IS IN THE BED, AWAKE, ALERT, WITHOUT SOB, NO DISTRESS NOTED, HOB ELEVATED FOR ASPIRATION PRECAUTION, O2 IN PLACE VIA N/C TOLERATING WELL. IV LINE RIGHT HAND INTACT, PATENT. NO S/SX FLUID OVERLOAD NOTED, DINNER TOLERATED WELL, BREATHING EVEN, UNLABORED. KEPT CLEAN, DRY, TURNED, REPOSITIONED EVERY 2 HOURS, PATIENT'S AND FAMILY NEEDS MET IN TIMELY MANNER, WITH CALL LIGHT WITHIN EASY REACH ALL THE TIME. WILL ENDORSE TO THE PATTERN SETTER NURSE FOR JENAE
[2016-06-20 20:11] VITALS: BP 129/80
[2016-06-20] MEDS: IV D5W 1,000 ML IV PRN (20:44)
[2016-06-20] MEDS: CEFEPIME 2 GM in IV D5W 100 ML IV SCH (20:45)
[2016-06-20] MEDS ORDERED: ATORVASTATIN 10 MG TABLET PO SCH (22:00)
[2016-06-21] MEDS: PROPRANOLOL HCL 10 MG TABLET PO SCH ×3 (06:14→21:20)
--- NOTE | 2016-06-21 07:12 | NUR ---
MS/RN AM NOTES RECEIVED PATIENT IN BED, ASLEEP, WITHOUT S/SX SOB, OXYGEN IN PLACE VIA N/C DELIVERING 2L/M TOLERATING WELL, BREATHING EVEN, UNLABORED. HOB ELEVATED 35 DEGREE FOR COMFORT AND ASPIRATION PRECAUTION. IV LINE ON RIGHT HAND INTACT, PATENT. BED IN LOW POSITION, 2 SR UP FOR SAFETY, WITH CALL LIGHT WITHIN EASY REACH, WILL CONTINUE TO MONITOR ACCORDINGLY.
[2016-06-21 08:00] VITALS: BP 102/64
[2016-06-21 08:12] LABS: BASOPHILS % (AUTO) 0.2 % (0.0-2.0); HEMATOCRIT 33 % (39-51); LYMPHOCYTES # (AUTO) 0.6 /CMM (0.8-4.8); LYMPHOCYTES % (AUTO) 13.1 % (20.0-44.0); MEAN CORPUSCULAR HEMOGLOBIN 31 PG (26.0-33.0); MEAN CORPUSCULAR HGB CONC 34 g/dl (31.0-36.0); MEAN CORPUSCULAR VOLUME 93 fL (80-96); MONOCYTES # (AUTO) 0.2 /CMM (0.1-1.30); MONOCYTES % (AUTO) 4.9 % (2.0-12.0); NEUTROPHILS # (AUTO) 3.8 /CMM (1.8-8.9); NEUTROPHILS % (AUTO) 80.8 % (43.0-81.0); PLATELET COUNT (AUTO) 195 /CMM (150-450); RDW COEFFICIENT OF VARIATION 14.7 (11.5-15.0); RED BLOOD CELL COUNT(AUTO) 3.51 MIL/uL (4.5-6.0); WHITE BLOOD COUNT (AUTO) 4.7 K/uL (4.3-11.0)
[2016-06-21] MEDS: CYANOCOBALAMIN 500 MCG TABLET PO SCH (08:58)
[2016-06-21] MEDS: VANCOMYCIN 0.75 GM in IV D5W 250 ML IV SCH (08:58)
[2016-06-21] MEDS: FAMOTIDINE (20 MG) 20 MG TABLET PO SCH (08:59)
[2016-06-21] MEDS: TAMSULOSIN 0.4 MG CAP.SR.24H PO SCH (08:59)
[2016-06-21] MEDS: ASPIRIN EC 325 MG TABLET.DR PO SCH (08:59)
[2016-06-21] MEDS: CARBIDOPA/LEVODOPA 25/100 MG 1 UDTAB PO SCH ×3 (08:59→17:44)
[2016-06-21 10:00] VITALS: BP 102/64
[2016-06-21 16:00] VITALS: BP 109/58
--- NOTE | 2016-06-21 17:00 | NUR ---
MS/RN CLOSING NOTES PATIENT IS IN THE BED, AWAKE, ALERT, WITHOUT SOB, NO DISTRESS NOTED, OXYGEN IN PLACE DELIVERING 2L/M VIA N/C SATURATING WELL. DENIES CHEST PAIN. HOB ELEVATED FOR ASPIRATION PRECAUTION, AND COMFORT. IV LINE INTACT ON RIGHT HAND, PATENT. ASSISTED PATIENT WITH MEALS. FED DINNER, TOLERATED WELL, 50%, 2 CUPS OF THICK JUICES. NO S/SX ASPIRATION, OR COUGHING. KEPT CLEAN, DRY COMFORTABLE, TURNED, REPOSITIONED EVERY 2 HOURS. PATIENT'S AND FAMILY NEEDS ANTICIPATED IN TIMELY MANNER ,BED IN LOW POSITION, 2SR UP FOR SAFETY, WITH CALL LIGHT WITHIN EASY REACH ALL THE TIME. WILL ENDORSE TO THE BIOFUELS TECHNOLOGY MANAGER NURSE FOR JENAE
[2016-06-21] MEDS: LACTOBACILLUS RHAMNOSUS GG 1 EACH CAP.SPRINK PO SCH (17:44)
--- NOTE | 2016-06-21 19:45 | NUR ---
GPS RN NOTES RECEIVED PATIENT RESTING IN BED. NO COMPLAINTS VERBALIZED AT THIS TIME. WITH CONTINUOUS OXYGEN INHALATION AT 2L/MIN. PATIENT'S SON CAME TO VISIT. WITH D5W 1L AT RIGHT HAND. PATIENT ON PUREED DIET WITH THICK LIQUIDS. WILL GIVE DUE MEDS. WILL REPOSITION PATIENT PER PROTOCOL. MONITOR FOR SAFETY.
[2016-06-21 20:16] VITALS: BP 99/68
[2016-06-21] MEDS: IV D5W 1,000 ML IV PRN (20:20)
[2016-06-21] MEDS: CEFEPIME 2 GM in IV D5W 100 ML IV SCH (20:34)
[2016-06-21] MEDS: LEVOFLOXACIN 750 MG /D5W 150ML 750 MG in PREMIX 1 EA IV SCH (21:22)
[2016-06-21] MEDS: VANCOMYCIN 500 MG in IV D5W 100 ML IV SCH (22:40)
[2016-06-22] MEDS: PROPRANOLOL HCL 10 MG TABLET PO SCH ×3 (05:21→21:03)
--- NOTE | 2016-06-22 07:35 | NUR ---
MS/RN OPENING NOTE PT. IS LYING ON HIS LEFT SIDE IN BED WITH HEAD OF BED UP. PT. IS AWAKE, A&OX2. OPENS EYES TO NAME. NO S/S OF DISTRESS, NO SOB, BREATHING IS UNLABORED, AND EVEN WITH NASAL CANULA AT 2L/MIN. PT. HAS IV FLUIDS INFUSING AT 50ML/HR ON HIS RIGHT HAND IV ACCESS. PT. HAS PILLOWS TO OFFLOAD BOTH HEELS. PT. BED IS IN LOW POSITION, 2 SIDE RAILS UP, AND CALL LIGHT WITHIN REACH.
[2016-06-22 07:47] LABS: BASOPHILS % (AUTO) 0.4 % (0.0-2.0); EOSINOPHILS # (AUTO) 0.1 /CMM (0.0-0.7); EOSINOPHILS % (AUTO) 1.1 % (0.0-6.0); HEMATOCRIT 35 % (39-51); HEMOGLOBIN 11.8 g/dL (13.5-17.5); LYMPHOCYTES # (AUTO) 0.8 /CMM (0.8-4.8); LYMPHOCYTES % (AUTO) 15.6 % (20.0-44.0); MEAN CORPUSCULAR HEMOGLOBIN 31 PG (26.0-33.0); MEAN CORPUSCULAR HGB CONC 34 g/dl (31.0-36.0); MEAN CORPUSCULAR VOLUME 91 fL (80-96); MONOCYTES # (AUTO) 0.2 /CMM (0.1-1.30); NEUTROPHILS # (AUTO) 3.8 /CMM (1.8-8.9); NEUTROPHILS % (AUTO) 77.9 % (43.0-81.0); PLATELET COUNT (AUTO) 182 /CMM (150-450); RDW COEFFICIENT OF VARIATION 14.6 (11.5-15.0); RED BLOOD CELL COUNT(AUTO) 3.85 MIL/uL (4.5-6.0); WHITE BLOOD COUNT (AUTO) 4.9 K/uL (4.3-11.0)
[2016-06-22 07:53] LABS: CALCIUM, SERUM 7.5 mg/dL (8.5-10.1); CREATININE 0.8 mg/dL (0.6-1.3); POTASSIUM 3.6 mmol/L (3.5-5.1)
[2016-06-22 08:00] VITALS: BP 137/77
[2016-06-22] MEDS: VANCOMYCIN 500 MG in IV D5W 100 ML IV SCH ×2 (08:20→21:02)
[2016-06-22] MEDS: FAMOTIDINE (20 MG) 20 MG TABLET PO SCH (08:21)
[2016-06-22] MEDS: CARBIDOPA/LEVODOPA 25/100 MG 1 UDTAB PO SCH ×3 (08:23→17:11)
[2016-06-22] MEDS: CYANOCOBALAMIN 500 MCG TABLET PO SCH (08:23)
[2016-06-22] MEDS: ASPIRIN EC 325 MG TABLET.DR PO SCH (08:23)
[2016-06-22] MEDS: LACTOBACILLUS RHAMNOSUS GG 1 EACH CAP.SPRINK PO SCH ×2 (08:23→17:11)
[2016-06-22] MEDS: TAMSULOSIN 0.4 MG CAP.SR.24H PO SCH (08:23)
[2016-06-22 16:00] VITALS: BP 121/68
--- NOTE | 2016-06-22 19:30 | NUR ---
RN NOTES: RECEIVED AWAKE ON BED IN SEMI FOWLERS POSITION, ON O2 AT 2/MIN,ALERT AND ORIENTEDX2,IV CANNULA ON RIGHT HAND G#18 WITH IVF OF D5W AT 50 ML/HR ONGOING,NO SIGN OF RESPIRATORY DISTRESS NOTED,CALL LIGHT WITH IN REACH, BED LOW AND LOCKED,SAFETY, ASPIRATION PRECAUTION OBSERVE.FOR [facility] AT 1999.
--- NOTE | 2016-06-22 19:35 | NUR ---
MS/RN CLOSING NOTE PT. IS LYING IN BED AWAKE, A&OX2. NO S/S OF DISTRESS, NO SOB, BREATHING EVENLY ON OXYGEN WITH NASAL CANNULA AT 2L/MIN. PT. IS ON BEDREST, AND WAS TURNED AND REPOSITIONED EVERY 2 HOURS. MEPILEX WAS APPLIED TO SACRUM AND Z GUARD. PT. HAS IV FLUIDS RUNNING ON RIGHT HAND AT 50ML/HR. PT. WAS CONSUMING ONLY THICK LIQUIDS AND PUREED FOOD. BED IS IN LOW POSITION, 2 SIDE RAILS UP, CALL LIGHT WITHIN REACH, AND ALL NEEDS ATTENDED TO. WILL ENDORSE REPORT TO JV BASEBALL COACH NURSE.
[2016-06-22 20:00] VITALS: BP 128/73
[2016-06-22] MEDS: CEFEPIME 2 GM in IV D5W 100 ML IV SCH (20:20)
[2016-06-22] MEDS: IV D5W 1,000 ML IV PRN (21:01)
--- NOTE | 2016-06-22 21:03 | NUR ---
RN NOTES: IV REPLACE WITH NEW BOTTLE OF D5W AT 50CC/HR, VANCO TROUGH RESULT =11, WILL CONTINUE WITH SAME DOSE AND F/U WITH PHARMACY FOR THE NEXT TROUGH LEVEL.
--- NOTE | 2016-06-22 23:30 | NUR ---
RN NOTES: SPONGE BATH RENDERED,DIAPER CHANGE,PASS LOOSE STOOL WITH FOUL SMEEL.TURNING AND REPOSITIONING DONE.KEPT ON COMFORTABLE POSITION.
[2016-06-23] MEDS: PROPRANOLOL HCL 10 MG TABLET PO SCH ×3 (04:43→22:06)
[2016-06-23 06:56] LABS: BASOPHILS % (AUTO) 0.2 % (0.0-2.0); EOSINOPHILS % (AUTO) 0.9 % (0.0-6.0); HEMATOCRIT 41 % (39-51); HEMOGLOBIN 13.6 g/dL (13.5-17.5); LYMPHOCYTES # (AUTO) 0.8 /CMM (0.8-4.8); LYMPHOCYTES % (AUTO) 16.7 % (20.0-44.0); MEAN CORPUSCULAR HEMOGLOBIN 30 PG (26.0-33.0); MEAN CORPUSCULAR HGB CONC 34 g/dl (31.0-36.0); MEAN CORPUSCULAR VOLUME 90 fL (80-96); MONOCYTES # (AUTO) 0.2 /CMM (0.1-1.30); NEUTROPHILS # (AUTO) 3.7 /CMM (1.8-8.9); NEUTROPHILS % (AUTO) 77.2 % (43.0-81.0); PLATELET COUNT (AUTO) 209 /CMM (150-450); RDW COEFFICIENT OF VARIATION 13.3 (11.5-15.0); RED BLOOD CELL COUNT(AUTO) 4.48 MIL/uL (4.5-6.0); WHITE BLOOD COUNT (AUTO) 4.8 K/uL (4.3-11.0)
--- NOTE | 2016-06-23 06:57 | NUR ---
RN NOTES: DUE MEDICATION GIVEN,ASLEEP MOST OF THE TIME, DIAPER CHANGE PRIOR TO ENDORSEMENT, CALL LIGHT WITHIN EASY REACH,ENDORSED TO MORNING SHIFT FOR CONTINUITY OF CARE.
[2016-06-23 07:12] LABS: CALCIUM, SERUM 7.9 mg/dL (8.5-10.1); CREATININE 0.8 mg/dL (0.6-1.3); POTASSIUM 3.9 mmol/L (3.5-5.1)
--- NOTE | 2016-06-23 07:31 | NUR ---
MS/RN OPENING NOTE PT. IS LYING IN SUPINE, SLEEPING WITH HEAD OF BED IN SEMI FOWLERS POSITION. NO S/S OF DISTRESS, NO SOB, BREATHING IS UNLABORED, AND EVEN ON OXYGEN WITH NASAL CANNULA AT 2L/MIN. PT. HAS IV FLUIDS INFUSING AT 50ML/HR ON HIS RIGHT HAND IV ACCESS. PT. HAS PILLOWS TO OFFLOAD BOTH HEELS. PT. BED IS IN LOW POSITION, 2 SIDE RAILS UP, AND CALL LIGHT WITHIN REACH. REPORT WAS GIVEN BY BOSS DYER NURSE.
[2016-06-23 08:00] VITALS: BP 157/83
[2016-06-23] MEDS: VANCOMYCIN 500 MG in IV D5W 100 ML IV SCH ×2 (08:43→22:47)
[2016-06-23] MEDS: CYANOCOBALAMIN 500 MCG TABLET PO SCH (08:44)
[2016-06-23] MEDS: ASPIRIN EC 325 MG TABLET.DR PO SCH (08:44)
[2016-06-23] MEDS: LACTOBACILLUS RHAMNOSUS GG 1 EACH CAP.SPRINK PO SCH ×2 (08:44→17:05)
[2016-06-23] MEDS: TAMSULOSIN 0.4 MG CAP.SR.24H PO SCH (08:44)
[2016-06-23] MEDS: FAMOTIDINE (20 MG) 20 MG TABLET PO SCH (08:44)
[2016-06-23] MEDS: CARBIDOPA/LEVODOPA 25/100 MG 1 UDTAB PO SCH ×3 (08:44→17:05)
[2016-06-23 10:21] VITALS: BP 157/83
[2016-06-23 16:00] VITALS: BP_SYST 124; BP_SYST 129; BP_DIAS 79
--- NOTE | 2016-06-23 16:15 | NUR ---
MS/RN CALLED MD SPOKE WITH DR. JACOB OVER THE PHONE REGARDING PT. POOR ORAL INTAKE OF THICK LIQUIDS, AND PUREE FOODS, NO NEW ORDERS WERE GIVEN. THE NEXT STEP IF POOR ORAL INTAKE CONTINUES, PT'S FAMILY WILL NEED TO CONSIDER GASTROINTESTINAL TUBE PLACEMENT FOR NUTRITIONAL SUPPLEMENTATION OR POSSIBLE DISCHARGE TO A HOSPICE.
[2016-06-23] MEDS: IV D5W 1,000 ML IV PRN (17:16)
[2016-06-23] MEDS ORDERED: IV SET PRIMARY PUMP SET 1 EA INFUS.SET MC ONE (17:16)
--- NOTE | 2016-06-23 19:30 | NUR ---
MS RN OPENING NOTES: PATIENT IN BED, AOX2, ON O2 AT 3 LPM VIA NC. BREATHING EVEN AND UNLABORED. BREATH SOUNDS CLEAR AT UPPER LUNG LESTER AND DIMINISHED AT BASES. PIV OVER R HAND G 18 INTACT AND PATENT, INFUSING WELL WITH D5W AT 50 ML/HR. ON STRICT ASPIRATION PRECAUTIONS. HOB MAINTAINED ELEVATED. PROVIDED FOR COMFORT AND SAFETY. BED IN LOWEST AND LOCKED POSITION, SIDERAILS UP X 3. BED ALARMS ON. WILL CONT TO MONITOR.
[2016-06-23 20:00] VITALS: BP 129/77
--- NOTE | 2016-06-23 20:07 | NUR ---
MS/RN CLOSING NOTE PT. IS LYING IN BED AWAKE, A&OX2, PT. SPEAKS FARSI. NO S/S OF DISTRESS, NO SOB, BREATHING EVENLY ON OXYGEN WITH NASAL CANNULA AT 3L/MIN. PT. IS ON BEDREST, AND WAS TURNED AND REPOSITIONED EVERY 2 HOURS. MEPILEX WAS APPLIED TO SACRUM WITH Z GUARD. PT. HAS IV FLUIDS RUNNING ON RIGHT HAND AT 50ML/HR. PT. HAD POOR INTAKE OF THICK LIQUIDS AND PUREED FOOD, CONSUMED APPROX. 10%. BED IS IN LOW POSITION, 4 SIDE RAILS UP, CALL LIGHT WITHIN REACH, AND ALL NEEDS ATTENDED TO. WILL ENDORSE REPORT TO IMPROVEMENT LEADER NURSE.
[2016-06-23] MEDS: CEFEPIME 2 GM in IV D5W 100 ML IV SCH (20:24)
[2016-06-23 21:02] VITALS: BP 129/77
[2016-06-23 22:00] VITALS: BP 129/77
[2016-06-23] MEDS ORDERED: SECONDARY IV SET 1 EA INFUS.SET MC ONE (22:04)
[2016-06-23] MEDS: LEVOFLOXACIN 750 MG /D5W 150ML 750 MG in PREMIX 1 EA IV SCH (22:05)
--- NOTE | 2016-06-24 00:30 | NUR ---
RN NOTES: PATIENT AWAKE, BUT CONFUSED, SPEAKING INCOHERENTLY IN MIXTURE OF SAMOAN AND FARSI. REORIENTED, PROVIDED FOR HYGIENE, REPOSITIONED. WILL CONT TO MONITOR.
[2016-06-24 05:00] VITALS: BP 133/70
[2016-06-24] MEDS: PROPRANOLOL HCL 10 MG TABLET PO SCH ×2 (05:29→12:06)
--- NOTE | 2016-06-24 06:47 | NUR ---
MS RN CLOSING NOTES: PATIENT IN BED, AOX2, ON O2 AT 3 LPM VIA NC. BREATHING EVEN AND UNLABORED. APPEARS CALM AND IN NO DISTRESS. PIV OVER R HAND G18 INTACT AND INFUSING WELL WITH D5W RUNNING AT 50 ML/HR. PROVIDED FOR COMFORT AND SAFETY. DUE MEDS GIVEN. TURNED AND REPOSITIONED Q 2 HRS. NO ACUTE CHANGE IN CONDITION NOTED THROUGH SHIFT. WILL ENDORSE TO AM RN FOR JENAE.
--- NOTE | 2016-06-24 07:20 | NUR ---
ms rn initial notes Received patient in bed, asleep, head of bed elevated, no SOB or distress noted. on 02 @3lpm via NC and tolerated well. Patient is alert and oriented x 2, with confusion. IV intact and patent with IVF infusing well. Kept patient clean and comfortable in bed, call light with in patient reach, will continue to monitor accordingly.
[2016-06-24 07:53] LABS: BASOPHILS % (AUTO) 0.3 % (0.0-2.0); EOSINOPHILS % (AUTO) 1.2 % (0.0-6.0); HEMATOCRIT 41 % (39-51); HEMOGLOBIN 13.7 g/dL (13.5-17.5); LYMPHOCYTES # (AUTO) 0.5 /CMM (0.8-4.8); LYMPHOCYTES % (AUTO) 12.7 % (20.0-44.0); MEAN CORPUSCULAR HEMOGLOBIN 30 PG (26.0-33.0); MEAN CORPUSCULAR HGB CONC 34 g/dl (31.0-36.0); MEAN CORPUSCULAR VOLUME 90 fL (80-96); MONOCYTES # (AUTO) 0.2 /CMM (0.1-1.30); NEUTROPHILS # (AUTO) 3.3 /CMM (1.8-8.9); NEUTROPHILS % (AUTO) 81.8 % (43.0-81.0); PLATELET COUNT (AUTO) 194 /CMM (150-450); RED BLOOD CELL COUNT(AUTO) 4.52 MIL/uL (4.5-6.0); WHITE BLOOD COUNT (AUTO) 4.1 K/uL (4.3-11.0)
[2016-06-24 08:00] VITALS: BP_SYST 130; BP_SYST 136; BP_DIAS 89
[2016-06-24 08:06] LABS: CALCIUM, SERUM 7.7 mg/dL (8.5-10.1); CREATININE 0.9 mg/dL (0.6-1.3); POTASSIUM 4.1 mmol/L (3.5-5.1)
[2016-06-24] MEDS: ASPIRIN EC 325 MG TABLET.DR PO SCH (09:01)
[2016-06-24] MEDS: LACTOBACILLUS RHAMNOSUS GG 1 EACH CAP.SPRINK PO SCH ×2 (09:01→16:50)
[2016-06-24] MEDS: VANCOMYCIN 500 MG in IV D5W 100 ML IV SCH (09:01)
[2016-06-24] MEDS: CYANOCOBALAMIN 500 MCG TABLET PO SCH (09:01)
[2016-06-24] MEDS: CARBIDOPA/LEVODOPA 25/100 MG 1 UDTAB PO SCH ×3 (09:01→16:50)
[2016-06-24] MEDS: FAMOTIDINE (20 MG) 20 MG TABLET PO SCH (09:02)
[2016-06-24] MEDS: TAMSULOSIN 0.4 MG CAP.SR.24H PO SCH (09:02)
--- NOTE | 2016-06-24 12:20 | NUR ---
ms rn notes Spud Driller came, seen and examined the patient food intake and recommend boost plus BID informed. All orders carried out and noted. Will continue to monitor accordingly.
[2016-06-24 16:00] VITALS: BP 132/90
[2016-06-24] MEDS ORDERED: BOOST PLUS FOOD-CHOCLATE 237 ML BOX PO SCH (17:00)
--- NOTE | 2016-06-24 17:38 | NUR ---
ms external relations director notes Called [facility] and spoke to Milena GARRISON and report given. Discharge instructions given to Milena due to patient is confused and unable to signed. discharge paper and no belonging signed by 2 RN. No SOB or distress noted. Pictures taken by the shift mgr and filed in the patient's chart. Discontinued IV and pressured applied to prevent bleeding. pneumonia and flu vaccine already taken 03/2015. Ambulance came to parts picker the patient. Patient left via gurney accompanied by 2 EMT's in stable condition. Vital signs checked and recorded. MD and charge nurse aware.
== END 2016-06-24 17:39 | DRG 871 ==
LOC: ER 17:48 → TELE 20:27 → MED 06-20 08:39
PROVIDERS: ADMIT Contractor; ATTEND Contractor
DX: A41.9 Sepsis, unspecified organism (principal); G93.41 Metabolic encephalopathy; N17.0 Acute kidney failure with tubular necrosis; J15.9 Unspecified bacterial pneumonia; E44.0 Moderate protein-calorie malnutrition; E87.0 Hyperosmolality and hypernatremia; Z68.1 Body mass index [BMI] 19.9 or less, adult; E86.9 Volume depletion, unspecified; F02.80 Dementia in other diseases classified elsewhere, unspecified severity, without behavioral disturbance, psychotic disturbance, mood disturbance, and anxiety; G30.9 Alzheimer's disease, unspecified; I25.10 Atherosclerotic heart disease of native coronary artery without angina pectoris; K21.9 Gastro-esophageal reflux disease without esophagitis; N40.0 Benign prostatic hyperplasia without lower urinary tract symptoms; R13.10 Dysphagia, unspecified; Z95.0 Presence of cardiac pacemaker; D63.8 Anemia in other chronic diseases classified elsewhere; E88.09 Other disorders of plasma-protein metabolism, not elsewhere classified; E53.8 Deficiency of other specified B group vitamins; Z91.81 History of falling; K59.09 Other constipation; E11.9 Type 2 diabetes mellitus without complications; I10 Essential (primary) hypertension; L89.621 Pressure ulcer of left heel, stage 1; L89.611 Pressure ulcer of right heel, stage 1; R23.4 Changes in skin texture; L85.3 Xerosis cutis; L98.8 Other specified disorders of the skin and subcutaneous tissue; L89.011 Pressure ulcer of right elbow, stage 1; R65.20 Severe sepsis without septic shock; I51.7 Cardiomegaly; S81.802A Unspecified open wound, left lower leg, initial encounter; S81.801A Unspecified open wound, right lower leg, initial encounter; X58.XXXA Exposure to other specified factors, initial encounter; Y93.9 Activity, unspecified; Y92.129 Unspecified place in nursing home as the place of occurrence of the external cause
CPT/HCPCS: 36415; 36600; 71010-TC; 80048-TC; 80061-TC; 80076-TC; 80202-TC; 81000-TC; 82728-TC; 83540-TC; 83605-TC; 83735-TC; 84100-TC; 84439-TC; 84443-TC; 84484-TC; 85025-TC; 85730-TC; 87040-TC; 87081-TC; 87086-TC; 92526; 92611-TC; 93307-TC; 94799-TC; A4216; J0692; J1956; J3370; J7030; J7060; J7070

== ENCOUNTER 2016-06-29 18:37 | Inpatient (IN) | payer MEDICARE, MEDICAID ==
[~2016-06-29] VITALS: Ht 167.6 cm; Wt 48.5 kg
[~2016-06-29 18:37] MED LIST changes: -CEPH-570 PO
--- NOTE | 2016-06-29 18:43 | NUR ---
AAOX1, BIBPA FROM [facility]: SEND BY Gely BLACKWOOD FOR G-TUBE PLACEMENT. RESP IS EVEN AND UNLABORED. NAD NOTED. ON NC @ 2L/MIN SPO2=95%. SKIN IS WARM AND DRY. AWAITING MD FOR EVAL. PLACED ON MONITOR.
--- NOTE | 2016-06-29 18:46 | NUR ---
EKG IN PROGRESS
[2016-06-29] MEDS ORDERED: BLOO-697 IN (18:53)
[2016-06-29] MEDS ORDERED: AMIN30LI4 PO (18:53)
[2016-06-29] MEDS ORDERED: MAGN400O6 PO (18:53)
[2016-06-29] MEDS ORDERED: MULT-659 PO (18:53)
[2016-06-29] MEDS ORDERED: ZINC220C8 PO (18:53)
[2016-06-29] MEDS ORDERED: ATOR10TA PO (18:53)
[2016-06-29] MEDS ORDERED: CALC-108 PO (18:53)
[2016-06-29] MEDS ORDERED: NA P133E RC (18:53)
[2016-06-29] MEDS ORDERED: ASCO500S2 PO (18:53)
[2016-06-29] MEDS ORDERED: ACET650S26 PO ×2 (18:53)
[2016-06-29] MEDS ORDERED: ASPI325T2 PO (18:53)
--- NOTE | 2016-06-29 19:05 | NUR ---
REPORT GIVEN TO BLADIMIR LEI FOR JENAE.
--- NOTE | 2016-06-29 19:06 | NUR ---
RECEIVED REPORT FROM BLADIMIR ELLIOTT FOR CONTINUE OF CARE.
--- NOTE | 2016-06-29 19:12 | NUR ---
LAB AT BEDSIDE FOR BLOOD DRAW.
--- NOTE | 2016-06-29 19:17 | NUR ---
DR SALGADO ON THE PHONE WITH DR MAYCO BARROSO
[2016-06-29 19:20] LABS: BASOPHILS % (AUTO) 0.4 % (0.0-2.0); EOSINOPHILS % (AUTO) 0.6 % (0.0-6.0); HEMATOCRIT 35 % (39-51); LYMPHOCYTES # (AUTO) 1.3 /CMM (0.8-4.8); LYMPHOCYTES % (AUTO) 31.8 % (20.0-44.0); MEAN CORPUSCULAR HEMOGLOBIN 31 PG (26.0-33.0); MEAN CORPUSCULAR HGB CONC 34 g/dl (31.0-36.0); MEAN CORPUSCULAR VOLUME 89 fL (80-96); MONOCYTES # (AUTO) 0.2 /CMM (0.1-1.30); MONOCYTES % (AUTO) 5.3 % (2.0-12.0); NEUTROPHILS # (AUTO) 2.7 /CMM (1.8-8.9); NEUTROPHILS % (AUTO) 61.9 % (43.0-81.0); PLATELET COUNT (AUTO) 198 /CMM (150-450); RDW COEFFICIENT OF VARIATION 13.1 (11.5-15.0); RED BLOOD CELL COUNT(AUTO) 3.92 MIL/uL (4.5-6.0); WHITE BLOOD COUNT (AUTO) 4.2 K/uL (4.3-11.0)
[2016-06-29 19:29] LABS: CALCIUM, SERUM 7.6 mg/dL (8.5-10.1); CARBON DIOXIDE 28 mmol/L (21-32); CHLORIDE 106 mmol/L (98-107); CREATININE 0.8 mg/dL (0.6-1.3); GLUCOSE 170 mg/dL (74-106); POTASSIUM 3.8 mmol/L (3.5-5.1); SODIUM SERUM 139 mmol/L (136-145); UREA NITROGEN, BLOOD 26 mg/dL (7-18)
[2016-06-29 19:32] LABS: INR 1.17 (0.87-1.13); PROTHROMBIN TIME 12.3 SECS (9.5-12.7)
[2016-06-29 19:40] LABS: TROPONIN I < 0.017 ng/mL (0.00-0.056)
--- NOTE | 2016-06-29 19:50 | NUR ---
DR. SALGADO AT BEDSIDE SPEAKING TO SERGEY REGARDING POC.
[2016-06-29] MEDS ORDERED: IV NS 0.9% 1,000 ML ONE (19:52)
[2016-06-29] MEDS ORDERED: IV SET PRIMARY PUMP SET 1 EA INFUS.SET MC ONE ×3 (19:52→21:45)
[2016-06-29] MEDS ORDERED: IV NS 0.9% 1,000 ML BAG IV ONE (20:00)
[2016-06-29] MEDS ORDERED: LIDOCAINE 2% JEL UROJET 10 ML MM ONE ×2 (20:07→20:30)
--- NOTE | 2016-06-29 20:13 | NUR ---
FAMILY REFUSED IN AND OUT CATH TO COLLECT URINE. RISK AND BENEFITS EXPLAINED X3. FAMILY STRONGLY REFSUED. DR. BEE AT BESIDE SPEAKING TO FAMILY.
--- NOTE | 2016-06-29 20:24 | NUR ---
FAMILY REFUSED BP CHECK AT THIS TIME. RISK AND BENEFITS EXPLAINED X3. SON STRONGLY REFUSED.
[2016-06-29] MEDS ORDERED: CEFTRIAXONE 1 G in IV D5W 50 ML IV ONE (20:30)
[2016-06-29] MEDS ORDERED: CEFTRIAXONE 1 G VIAL ONE (20:30)
[2016-06-29] MEDS ORDERED: CEFTRIAXONE 1GM BAG (ER ONLY) 50 ML IV ONE (20:31)
--- NOTE | 2016-06-29 20:46 | NUR ---
REPORT GIVEN TO ALFREDA PITTMAN FOR CONTINUE OF CARE.
[2016-06-29 20:50] VITALS: BP 127/67
--- NOTE | 2016-06-29 20:50 | NUR ---
MS/DIRECTOR OPERATING ROOM; ADMITTED 85 YEARS OLD MALE PT FROM ER ACCOMPANIED BY ER MALE STAFFS AND SON JESSE. PT IS AWAKE BUT NOT TALKING AT THIS TIME. DX; FAILURE TO THRIVE AND FOR PEG PLACEMENT. HL X 2 ON MILAN AND LAC INTACT. HAS SKIN ISSUES PHOTOS WERE DONE. BED ON LOWER POSITION AND LOCKED FOR SAFETY. SIDE RAILS ARE UP FOR SAFETY. CALL LIGHT WITHIN REACH.
[2016-06-29] MEDS ORDERED: ACETAMINOPHEN 325 MG TABLET PO PRN (21:00)
[2016-06-29] MEDS ORDERED: ONDANSETRON HCL/PF 4 MG/2 ML VIAL IVP PRN (21:00)
[2016-06-29] MEDS ORDERED: ACETAMINOPHEN 650 MG/20.3 ML UDC PO PRN (21:00)
[2016-06-29] MEDS: CEFTRIAXONE 1 G in IV D5W 50 ML IV SCH (21:00)
[2016-06-29] MEDS ORDERED: NA PHOS,M-B/NA PHOS,DI-BA 1 EA ENEMA RC PRN (21:00)
[2016-06-29] MEDS ORDERED: ZOLPIDEM TARTRATE 5 MG TABLET PO PRN (21:00)
[2016-06-29] MEDS: ENOXAPARIN SODIUM 40 MG/0.4 ML DISP.SYRIN SQ SCH (21:00)
[2016-06-29] MEDS ORDERED: HYDROCODONE/APAP 5/325MG 1 EACH TABLET PO PRN (21:00)
--- NOTE | 2016-06-29 21:00 | NUR ---
MS/LATEX DIPPER; LOVENOX NOT GIVEN PT . POSSIBLE PEG PLACEMENT PER CHARGE NURSE.
--- NOTE | 2016-06-29 21:01 | NUR ---
PT TRANSFERED PER ACLS PROTOCOL.
--- NOTE | 2016-06-29 21:20 | NUR ---
MS/COURT ADVOCATE; DR. MAYCO REYNOLDS CAME AND EXAM THE PT. HE TALKED ALSO TO THE SON JESSE. PER DR. MAYCO ARCHULETA IS COMING IN THE MORNING. WITH O2 2L NC ON.
[2016-06-29] MEDS ORDERED: IV D5/0.45 NACL 1,000 ML IV ONE (21:45)
[2016-06-29] MEDS: IV D5/0.45 NACL 1,000 ML IV PRN (21:53)
[2016-06-29] MEDS: ATORVASTATIN 10 MG TABLET PO SCH (22:00)
[2016-06-29] MEDS: TAMSULOSIN 0.4 MG CAP.SR.24H PO SCH (22:00)
--- NOTE | 2016-06-29 22:00 | NUR ---
MS/CHECK EMBOSSER; FLOMAX AND LIPITOR PO NOT GIVEN PT NPO FOR SWALLOW EVAL.
[2016-06-29] MEDS: BLOOD SUGAR DIAGNOSTIC 1 EACH STRIP IN SCH (23:30)
--- NOTE | 2016-06-29 23:30 | NUR ---
MS/PR MANAGER; BS 131 NO COVERAGE. NO ORDER FOR SLIDING SCALE.
--- NOTE | 2016-06-30 06:00 | NUR ---
MS/DIE REPAIR; BS 142 NO COVERAGE GIVEN.
[2016-06-30] MEDS: BLOOD SUGAR DIAGNOSTIC 1 EACH STRIP IN SCH ×3 (06:14→23:40)
--- NOTE | 2016-06-30 07:00 | NUR ---
MS/LOCKSTITCH FRONT MAKER; IVF ON PROGRESS. BREATHING NON LABORED. NOTE LAST NIGHT WHEN LOTS OF VISITORS CAME PT WAS TALKING TO THEM BUT IN FARSI SPEAKING. INCONTINENT OF URINE. PERINEAL CARE DONE BY THE PUBLIC HEALTH SANITARIAN TECHNICIAN. REPOSITIONED.WILL ENDORSE TO THE DAY SHIFT NURSE.
--- NOTE | 2016-06-30 07:15 | NUR ---
MS RN INITIAL NOTE REPORT RECEIVED AT THE BEDSIDE. PATIENT IS SLEEPING. NO SOB OR DISTRESS NOTED AT THIS TIME. PATIENT DOES NOT APPEAR TO BE IN PAIN, NO FACIAL GRIMACE. BED IN A LOW POSITION, CALL LIGHT WITHIN PATIENT REACH. WILL CONTINUE TO MONITOR.
[2016-06-30 07:41] LABS: BASOPHILS % (AUTO) 0.2 % (0.0-2.0); EOSINOPHILS % (AUTO) 0.3 % (0.0-6.0); HEMATOCRIT 34 % (39-51); HEMOGLOBIN 11.4 g/dL (13.5-17.5); LYMPHOCYTES # (AUTO) 1.8 /CMM (0.8-4.8); LYMPHOCYTES % (AUTO) 44.3 % (20.0-44.0); MEAN CORPUSCULAR HEMOGLOBIN 31 PG (26.0-33.0); MEAN CORPUSCULAR HGB CONC 34 g/dl (31.0-36.0); MEAN CORPUSCULAR VOLUME 91 fL (80-96); MONOCYTES # (AUTO) 0.3 /CMM (0.1-1.30); MONOCYTES % (AUTO) 6.3 % (2.0-12.0); NEUTROPHILS % (AUTO) 48.9 % (43.0-81.0); PLATELET COUNT (AUTO) 183 /CMM (150-450); RED BLOOD CELL COUNT(AUTO) 3.71 MIL/uL (4.5-6.0); WHITE BLOOD COUNT (AUTO) 4.2 K/uL (4.3-11.0)
[2016-06-30 07:59] LABS: CALCIUM, SERUM 7.4 mg/dL (8.5-10.1); CREATININE 0.8 mg/dL (0.6-1.3); MAGNESIUM 1.7 mg/dL (1.8-2.4); PHOSPHORUS 2.2 mg/dL (2.5-4.9); POTASSIUM 3.6 mmol/L (3.5-5.1)
[2016-06-30 08:00] VITALS: BP 122/65
[2016-06-30] MEDS: ASCORBIC ACID SYRUP 500 MG/5 ML UDC PO SCH (09:47)
[2016-06-30] MEDS: ASPIRIN 325 MG TABLET PO SCH (09:47)
[2016-06-30] MEDS: CARBIDOPA/LEVODOPA 25/100 MG 1 UDTAB PO SCH ×3 (09:47→16:46)
[2016-06-30] MEDS: PANTOPRAZOLE 40 MG TABLET.DR PO SCH (09:47)
--- NOTE | 2016-06-30 10:09 | NUR ---
MS RN NOTES SPOKE TO DR ARCHULETA ABOUT PATIENT. MD AWARE OF CONSULT, STATES TO KEEP PATIENT NPO UNTIL HE SEES THE PATIENT. WILL CARRY OUT ORDERS.
[2016-06-30] MEDS ORDERED: SECONDARY IV SET 1 EA INFUS.SET MC ONE ×2 (12:00→20:35)
[2016-06-30] MEDS: Magnesium 1GM/D5W 100ML PREMIX 100 ML IV SCH ×2 (12:28→13:33)
[2016-06-30] MEDS: IV D5/0.45 NACL 1,000 ML IV PRN (12:28)
[2016-06-30] MEDS ORDERED: DEXTROSE 50%-WATER 50 ML DISP.SYRIN IV PRN (12:30)
[2016-06-30] MEDS ORDERED: Sodium Phosphate 15 MMOL in IV D5W 250 ML IV ONE (14:00)
[2016-06-30 16:41] VITALS: BP 128/55
[2016-06-30] MEDS: INSULIN REGULAR, HUMAN 100 UNIT/ML 3 ML VIAL SQ PRN ×2 (17:11→23:41)
--- NOTE | 2016-06-30 17:12 | NUR ---
MS RN NOTES PATIENT BLOOD SUGAR DROPPED FROM 188 TO 131 WITHOUT ANY INSULIN AND PATIENT HAS BEEN ON CONTINUOUS FLUIDS CONTAINING D5. WILL HOLD 2U INSULIN SCHEDULED.
[2016-06-30 17:50] LABS: ALBUMIN 1.8 g/dL (3.4-5.0); BILIRUBIN,DIRECT 0.1 mg/dL (0.0-0.2); BILIRUBIN,TOTAL 0.4 mg/dL (0.2-1.0); TOTAL PROTEIN, SERUM 5.4 g/dL (6.4-8.2)
--- NOTE | 2016-06-30 19:19 | NUR ---
MS RN CLOSING NOTES NO SIGNIFICANT CHANGES IN PATIENT CONDITION THROUGHOUT THE SHIFT. NO SOB OR DISTRESS NOTED AT THIS TIME. PATIENT DOES NOT APPEAR TO BE IN PAIN, NO FACIAL GRIMACE NOTED. BED IN A LOW POSITION, CALL LIGHT WITHIN PATIENT REACH. WILL ENDORSE FOR JENAE.
[2016-06-30 20:00] VITALS: BP 108/60
--- NOTE | 2016-06-30 20:15 | NUR ---
MS RN NOTE RECEIVED PATIENT FROM A PREVIOUS NURSE, PATIENT IS ALERT AND ORIENTEDX1, ON BED REST, ON NPO STATUS DUE TO PEG PLACEMENT TOMORROW BY DR. ARCHULETA. RIGHT UPPER ARM AND LEFT AC IV ACCESS ARE PATENT AND INTACT, GETTING FLUID. SRX2, BED IN LOW POSITION, CALL LIGHT WITHIN REACH, WILL CONTINUE TO MONITOR PATIENT.
[2016-06-30] MEDS: CEFTRIAXONE 1 G in IV D5W 50 ML IV SCH (20:44)
[2016-06-30] MEDS: ENOXAPARIN SODIUM 40 MG/0.4 ML DISP.SYRIN SQ SCH (20:55)
--- NOTE | 2016-06-30 20:55 | NUR ---
MS RN NOTE PATIENT IS CURRENTLY ON NPO DUE TO PEG PLACEMENT TOMORROW MORNING AND HIS H&H IS TRENDING DOWN SLIGHTLY. LOVENOX 40MG SQ DID NOT ADMINISTER TONIGHT.
[2016-06-30] MEDS: TAMSULOSIN 0.4 MG CAP.SR.24H PO SCH (21:59)
[2016-06-30] MEDS: ATORVASTATIN 10 MG TABLET PO SCH (21:59)
[2016-07-01] VITALS (9 sets, daily range): BP systolic 106–147; BP diastolic 71–80
[2016-07-01] MEDS: BLOOD SUGAR DIAGNOSTIC 1 EACH STRIP IN SCH ×4 (05:44→23:05)
[2016-07-01] MEDS: IV D5/0.45 NACL 1,000 ML IV PRN ×2 (06:13→23:05)
--- NOTE | 2016-07-01 06:43 | NUR ---
MS RN NOTE PATIENT IS RESTING IN BED COMFORTABLY, NO S/S OF RESPIRATORY DISTRESS AND NO FACIAL GRIMACE NOTED. NO ACUTE DISTRESS PRESENT DURING THE RN FLOAT, WILL ENDORSE TO DAY SHIFT NURSE FOR JENAE.
--- NOTE | 2016-07-01 07:29 | NUR ---
AM RN NOTE Patient sleeping comfortably in his bed, arouses upon touch. On O2 2L/min via NC. IV site intact and patent. NPO for PEG procedure this AM. Bed in low locked position. Will continue to monitor.
[2016-07-01] MEDS: PANTOPRAZOLE 40 MG TABLET.DR PO SCH (07:30)
[2016-07-01] MEDS: CARBIDOPA/LEVODOPA 25/100 MG 1 UDTAB PO SCH ×3 (07:31→17:36)
[2016-07-01] MEDS: ASPIRIN 325 MG TABLET PO SCH (07:31)
[2016-07-01] MEDS: ASCORBIC ACID SYRUP 500 MG/5 ML UDC PO SCH (07:31)
[2016-07-01 07:36] LABS: CALCIUM, SERUM 7.7 mg/dL (8.5-10.1); CREATININE 0.7 mg/dL (0.6-1.3); MAGNESIUM 2.1 mg/dL (1.8-2.4); PHOSPHORUS 3.1 mg/dL (2.5-4.9); POTASSIUM 3.9 mmol/L (3.5-5.1)
--- NOTE | 2016-07-01 10:12 | NUR ---
WOUND CARE CONSULT: PT PRESENTS WITH RASH TO BUTTOCKS AND BROWNISH DISCOLORATION TO MIDBACK AREA, PRESENT ON ADMISSION. PT HAS MULTIPLE DRY SCABS TO LEGS. PT IS EXTREMELY THIN AND BONY. PT IS INCONTINENT. PT ON PATY ISOFLEX LOW AIRLOSS BED. ALL SKIN PROTECTION RECOMMENDATIONS DISCUSSED WITH NURSING STAFF. MD IN AGREEMENT WITH PLAN OF CARE. Addendum: 07/01/16 at 1014 by MARTHA TREVIZO WNDNU Amended: Links added.
--- NOTE | 2016-07-01 10:18 | NUR ---
AM RN NOTE Patient awake, left to OR at this time as accompanied by OR staff.
[2016-07-01] MEDS: CLOTRIMAZOLE 1% 15 GM TUBE TP SCH ×2 (10:30→17:36)
--- NOTE | 2016-07-01 11:50 | NUR ---
AM RN NOTE Patient awake, verbally responsive came back from OR as accompanied by OR staff. PEG in place, no bleeding noted at site. V/S BP147/73 T97.4 P91 R18 O2 sat 97% @O2 2L/min via NC. Will continue to monitor.
--- NOTE | 2016-07-01 13:13 | NUR ---
GÓMEZ RN NOTE Tube feeding recommendation given by Conference Center Manager approved by Lauren GUTIERREZ and order placed.
[2016-07-01] MEDS: GLYTROL 1,000 ML BAG GT PRN (17:37)
--- NOTE | 2016-07-01 18:00 | NUR ---
AM RN NOTE Patient awake lying in his bed, family at bedside. GT intact and patent, placement checked. GT feeding started @30 ml/hr at this time. Will gradual increase the rate. CN (Kimberly) made aware. No leakage noted at site. HOB elevated to 45 degree. Will continue to monitor. IV site intact and patent, continue on IV fluids as ordered. Bed in low locked position. Addendum: 07/01/16 at 1806 by SPIKE MOSER RN medication given via GT.
--- NOTE | 2016-07-01 19:11 | NUR ---
AM RN NOTE Patient lying in his bed, report given to oncoming RN. GT feeding continue on 30ml/hr and endorsed to increase rate as tolerated (goal=65ml/hr). GT site intact. Pt denies any pain at this time.
--- NOTE | 2016-07-01 19:17 | NUR ---
ms/rn opening notes PATIENT IN BED, HOB ELEVATED. NO S/S OF SOB OR DISTRESS. ABLE TO RESPOND WITH VERBAL AND TOUCH. REQUIRE ASSISTANCE , GTUVE PLACED, WILL CONTINUE TO MONITOR ANS ATTEND TO NEEDS/
[2016-07-01] MEDS: TAMSULOSIN 0.4 MG CAP.SR.24H PO SCH (21:56)
[2016-07-01] MEDS: ATORVASTATIN 10 MG TABLET PO SCH (21:56)
[2016-07-01] MEDS: CEFTRIAXONE 1 G in IV D5W 50 ML IV SCH (21:56)
[2016-07-01] MEDS: ENOXAPARIN SODIUM 40 MG/0.4 ML DISP.SYRIN SQ SCH (22:04)
--- NOTE | 2016-07-01 22:09 | NUR ---
ms/rn notes residual check, with zero residual. able to toleratre feeding, increase to 45ml/hr will monitor.
--- NOTE | 2016-07-02 | NUR ---
ms/rn note PATIENT BS CHECK AT 146, ON NPO W/ GTUBE FEEDING STARTED AT 1700.ON IV D5 03/11 NS RUNNING WILL RE CHECK BS AT 0500
[2016-07-02] MEDS: BLOOD SUGAR DIAGNOSTIC 1 EACH STRIP IN SCH ×3 (05:14→18:12)
[2016-07-02] MEDS: INSULIN REGULAR, HUMAN 100 UNIT/ML 3 ML VIAL SQ PRN (05:17)
--- NOTE | 2016-07-02 06:59 | NUR ---
ms/rn opening notes PATIENT IS ALERT, ORIENTEDX2 ATTEND TO NEEDS AT ALL TIMES. MONITORING FOR ANY S/S OF HYPO/HYPERGLYCEMIA. WILL CONTINUE TO MONITOR. ON GTUBE RUNNING AT 55 CC HR AND TOLERATE FEEDING WITH NO RESIDUAL, WILL ENDORSE TO AM RN REGARDING ORDER FEEDING RATE 65CC ONCE PATIENT CAN TOLERATE FEEDING. WILL CONTINUE TO MONITOR.
--- NOTE | 2016-07-02 07:30 | NUR ---
MS/RN OPENING NOTE PT. IS IN BED AWAKE WITH HEAD OF BED ELEVATED. PT. IS A&OX1, FARSI SPEAKING. NO S/S OF DISTRESS, NO SOB, BREATHING IS EVEN AND UNLABORED ON OXYGEN WITH NASAL CANNULA. PT. BED IS IN LOW POSITION, 3 SIDE RAILS UP, CALL LIGHT WITHIN REACH. IV FLUIDS RUNNING AT 75 ML/HR ON RIGHT UPPER ARM MIDLINE IV ACCESS. PT. HAS GI TUBE GLYTROL RUNNING AT 55ML/HR TOLERATED.
[2016-07-02 08:00] VITALS: BP 132/63
[2016-07-02 08:47] LABS: CALCIUM, SERUM 7.5 mg/dL (8.5-10.1); CREATININE 0.7 mg/dL (0.6-1.3); POTASSIUM 3.8 mmol/L (3.5-5.1)
[2016-07-02] MEDS: ASPIRIN 325 MG TABLET PO SCH (09:23)
[2016-07-02] MEDS: ASCORBIC ACID SYRUP 500 MG/5 ML UDC PO SCH (09:23)
[2016-07-02] MEDS: PANTOPRAZOLE 40 MG TABLET.DR PO SCH (09:23)
[2016-07-02] MEDS: CARBIDOPA/LEVODOPA 25/100 MG 1 UDTAB PO SCH ×3 (09:23→17:50)
[2016-07-02] MEDS: CLOTRIMAZOLE 1% 15 GM TUBE TP SCH ×2 (09:24→13:31)
[2016-07-02] MEDS: Z GUARD REMEDY 2 OZ OINT TP PRN (09:24)
--- NOTE | 2016-07-02 11:00 | NUR ---
MS/RN SPEECH THERAPY PT. PASSED SWALLOW EVALUATION PER SPEECH THERAPIST. PT. WAS ABLE TO TOLERATE PUREE AND THIN LIQUIDS FOR ORAL GRATIFICATION AT THIS TIME PER PATIENT REQUEST.
--- NOTE | 2016-07-02 11:38 | NUR ---
MS/RN PER DR. VALDIVIA PT. CAN STAY ONE MORE NIGHT. PLANNING TO DISCHARGED PT. TOMORROW MORNING AT APPROX. 0900 TO [facility]. NOTIFIED PT.'S SON, WICHO AND ROLY.
--- NOTE | 2016-07-02 12:30 | NUR ---
MS/RN SPOKE WITH PT.'S SON JESSE ON THE PHONE TO GIVE AN UPDATE ON PT.'S HEALTH STATUS. ALL QUESTIONS WERE ANSWERED.
[2016-07-02] MEDS: GLYTROL 1,000 ML BAG GT PRN (13:31)
[2016-07-02 16:00] VITALS: BP 138/76
--- NOTE | 2016-07-02 16:00 | NUR ---
MS/ RN ANOTHER NURSE WAS HOLDING PT. WHILE HE WAS TRYING TO GET OUT OF BED. PT. WAS PUT BACK INTO BED SAFELY, AND WAS REORIENTED. NOTIFIED THE CHARGE NURSE ABOUT PT. GETTING OUT OF BED. AFTER PT. HAD A 1:1 SITTER AT THE BED SIDE.
--- NOTE | 2016-07-02 18:00 | NUR ---
MS/BULL DRIVER PT. WAS SHOWING S/S OF PAIN. PT. SAID, "BIG PAIN", WHILE GUARDING G TUBE SITE. PT. WAS OFFERED PAIN MEDICATION AND AGREED TO TAKING IT. PT. WAS GIVEN PAIN MEDICATION.
--- NOTE | 2016-07-02 19:32 | NUR ---
MS GRAPHICS EDIT TECHNICIAN INITIAL NOTES RECEIVED REPORT FROM AM NURSE RUBI, CHECKED PT HE'S RESTING WITH SITTER AT THE BEDSIDE FOR SAFETY. RESPIRATION EVEN AND NON-LABORED WITH 02 AT 3 LITERS VIA NC. NO SIGNS OF ANY ACUTE DISTRESS NOTED. HE'S STILL ON IVF D51/2 NS AT 75ML/HR ON HIS RIGHT UPPER ARM PATTENT AND INTACT. HE ALSO ON G-TUBE FEEDING GLYTROL AT 65ML/HR, NO ASPIRATION NOTED , RESIDUAL 10 ML AT THIS TIME.KEPT HIM HOB ELEVATED AT ALL TIMES. SKIN WARM AND DRY TO TOUCH. KEPT HIM WARM AND COMFORTABLE AT ALL TIMES. WILL CONTINUE CLOSELY MONITORING FOR SAFETY.
[2016-07-02 19:45] VITALS: BP 127/75
--- NOTE | 2016-07-02 19:45 | NUR ---
MS/RN CLOSING NOTE PT. IS SLEEPING INTERMITTENTLY WITH HEAD OF BED UP. NO S/S OF DISTRESS, BREATHING ON OXYGEN WITH NASAL CANNULA, NO SOB, AND BREATHING IS UNLABORED. GLYTROL IS RUNNING AT 65 ML/HR AND PT. IS TOLERATING. IV FLUIDS RUNNING AT 75ML/HR ON RIGHT IV SIT ON THE UPPER ARM. BED IS IN LOW POSITION, 3 SIDE RAILS UP, 1:1 SITTER NEAR BEDSIDE, AND ALL NEEDS ATTENDED TO. WILL ENDORSE REPORT TO PLANER OPERATOR NURSE.
[2016-07-02] MEDS: ENOXAPARIN SODIUM 40 MG/0.4 ML DISP.SYRIN SQ SCH (21:01)
[2016-07-02] MEDS: TAMSULOSIN 0.4 MG CAP.SR.24H PO SCH (21:12)
[2016-07-02] MEDS: ATORVASTATIN 10 MG TABLET PO SCH (21:12)
[2016-07-02] MEDS: CEFTRIAXONE 1 G in IV D5W 50 ML IV SCH (21:34)
--- NOTE | 2016-07-03 | NUR ---
GREASE AND TALLOW PUMPER/NOTES BLOOD SUGAR 116, NO INSULIN COVERAGES GIVEN, NO SIGNS OF HYPO GLYCEMIA NOTED. G-TUBE FEEDING TOLERATED WELL, NO ASPIRATION NOTED. KEPT HIM WARM AND COMFORTABLE AT ALL TIMES. WILL CONTINUE CLOSELY MONITORING.
[2016-07-03] MEDS: BLOOD SUGAR DIAGNOSTIC 1 EACH STRIP IN SCH ×3 (00:12→12:28)
[2016-07-03] MEDS: GLYTROL 1,000 ML BAG GT PRN (04:59)
[2016-07-03] MEDS: IV D5/0.45 NACL 1,000 ML IV PRN (05:00)
[2016-07-03] MEDS: CLOTRIMAZOLE 1% 15 GM TUBE TP SCH (06:19)
[2016-07-03] MEDS: Z GUARD REMEDY 2 OZ OINT TP PRN (06:20)
[2016-07-03] MEDS: PANTOPRAZOLE 40 MG TABLET.DR PO SCH (06:29)
--- NOTE | 2016-07-03 07:07 | NUR ---
MS PRODUCTION CONTROL PEGBOARD CLERK CLOSING NOTES] PT BACK TO REST AFTER MORNING CARE DONE WELL HIS SKIN TREATMENT, REPOSITION HIM FOR COMFORT. BLOOD SUGAR CHECKED 102, NO COVERAGE GIVEN, IVF D51/2 NS STILL INFUSING ON HIS RIGHT UPPER ARM, NO REDNESS NOTED. HEPLOCK PATENT AND INTACT. G-TUBE FEEDING TOLERATED WELL, NO ASPIRATION NOTED. TOO. SLEPT WELL AFTER NORCO GIVEN LAST NIGHT BY AM NURSE, STABLE BELA THE NIGHT . ALL DUE MEDS GIVEN AND ALL NEEDS MET. KEPT HIM HOB ELEVATED, AND KEPT HIM WARM AND SAFE. . ASPIRATION PRECAUTION AND FALL IMPLEMENTED AND OBSERVED. SITTER AT THE BEDSIDE FOR SAFETY. ENDORSE TO AM NURSE JARRED FOR CONTINUITY OF CARE.
--- NOTE | 2016-07-03 07:15 | NUR ---
MS RN NOTES RECEIVED PATIENT IN BED, SLEEPING, AROUSES EASILY. ON OXYGEN AT 3L/MIN VIA NC, NO SOB NOTED. IV IN MILAN G22 PATENT AND INTACT, IV D5 1/2 NS INFUSING AT 75ML/HR. ON GTUBE FEEDING GLYTROL AT 75ML/HR. APPEARS COMFORTABLE IN BED, MAINTAIN HOB ELEVATED. CALL LIGHT WITHIN REACH. 1:1 SITTER AT THE BED SIDE.
[2016-07-03 07:37] LABS: CALCIUM, SERUM 7.6 mg/dL (8.5-10.1); CREATININE 0.6 mg/dL (0.6-1.3); POTASSIUM 3.8 mmol/L (3.5-5.1)
[2016-07-03 08:00] VITALS: BP_SYST 108; BP_SYST 127; BP_DIAS 55; BP_DIAS 71; BP_DIAS 72
[2016-07-03] MEDS: CARBIDOPA/LEVODOPA 25/100 MG 1 UDTAB PO SCH ×2 (08:10→12:30)
[2016-07-03] MEDS: ASCORBIC ACID SYRUP 500 MG/5 ML UDC PO SCH (08:10)
[2016-07-03] MEDS: ASPIRIN 325 MG TABLET PO SCH (08:10)
[2016-07-03] MEDS ORDERED: SECONDARY IV SET 1 EA INFUS.SET MC ONE (09:09)
--- NOTE | 2016-07-03 10:20 | NUR ---
DR. JAXSON VALDIVIA ORDERED PURRED DIET, GRATIFICATION FEEDING, THIN LIQUIDS IS OK. NOTED AND ACKNOWLEDGED. ASPIRATION PRECAUTION WILL BE OBSERVED.
--- NOTE | 2016-07-03 10:27 | NUR ---
PATIENT TO BE DISCHARGED TO [facility] ORDERED.
[2016-07-03 12:00] VITALS: BP 108/55
[2016-07-03] MEDS: INSULIN REGULAR, HUMAN 100 UNIT/ML 3 ML VIAL SQ PRN (12:29)
--- NOTE | 2016-07-03 15:30 | NUR ---
MS RN DISCHARGED PATIENT HAS BEEN CLEARED FOR DISCHARGE TO [facility] BY . PATIENT IS SEEN BY PT TODAY, PARTICIPATED WELL. ON ANTIBIOTIC WITH NO ADVERSE REACTION. NO S/S OF HYPO/HYPERGLYCEMIA NOTED. SKIN INTACT. IV IN MILAN AND LAC REMOVED, GAUZE APPLIED, NO BLEEDING NOTED. CALLED [facility], SPOKE TO LARISA FOR REPORT. NOTIFIED SON-JESSE PRIOR DC. PATIENT LEFT HOSP IN STABLE CONDITION.
== END 2016-07-03 15:40 | DRG 640 ==
LOC: ER 18:43 → TELE 20:27 → MED 20:56
PROC: 0DH63UZ Insertion of Feeding Device into Stomach, Percutaneous Approach (ICD-10-PCS; principal; 2016-07-01 10:53)
DX: R62.7 Adult failure to thrive (principal); R53.2 Functional quadriplegia; G93.40 Encephalopathy, unspecified; E44.0 Moderate protein-calorie malnutrition; F02.80 Dementia in other diseases classified elsewhere, unspecified severity, without behavioral disturbance, psychotic disturbance, mood disturbance, and anxiety; E11.9 Type 2 diabetes mellitus without complications; G20 Parkinson's disease; G30.9 Alzheimer's disease, unspecified; R13.10 Dysphagia, unspecified; I25.10 Atherosclerotic heart disease of native coronary artery without angina pectoris; I10 Essential (primary) hypertension; D63.8 Anemia in other chronic diseases classified elsewhere; Z95.0 Presence of cardiac pacemaker; E53.8 Deficiency of other specified B group vitamins; K59.09 Other constipation; N40.0 Benign prostatic hyperplasia without lower urinary tract symptoms; Z87.01 Personal history of pneumonia (recurrent); Z91.81 History of falling; E86.0 Dehydration
CPT/HCPCS: 36415; 43246; 71010-TC; 80048-TC; 80076-TC; 82962-TC; 83735-TC; 84100-TC; 84484-TC; 85025-TC; 85730-TC; 87081-TC; 92526; 92611-TC; 94799-TC; 97001-TC; 97116-TC; 97530-TC; A4606; A6403; A9563; J0690; J0696; J1650; J1815; J2704; J3475; J3490; J7030; J7060; Z7610

== ENCOUNTER 2016-07-10 11:20 | Inpatient (IN) | payer MEDICARE, MEDICAID ==
[~2016-07-10] VITALS: Ht 172.7 cm; Wt 80.3 kg
[~2016-07-10 11:20] MED LIST changes: +ACET650S26 PO; +AMIN30LI4 PO; +ASCO500S2 PO; -ASPI-869 PO; +ASPI325T2 PO; +ATOR10TA PO; -ATOR20TA PO; +BLOO-697 IN; +CALC-108 PO; +MAGN400O6 PO; +MULT-659 PO; +NA P133E RC; +ZINC220C8 PO
[2016-07-10] MEDS ORDERED: ACETAMINOPHEN 650 MG/SUPP.RECT RC ONE ×2 (11:30→11:36)
[2016-07-10] MEDS ORDERED: IV NS 0.9% 1,000 ML BAG IV ONE (11:30)
[2016-07-10] MEDS ORDERED: CEFEPIME 1 GM in IV D5W 50 ML IV ONE (11:30)
[2016-07-10] MEDS ORDERED: VANCOMYCIN 1 GM in IV D5W 250 ML IV ONE (11:30)
[2016-07-10] MEDS ORDERED: IV NS 0.9% 2,000 ML ONE (11:30)
[2016-07-10] MEDS ORDERED: IV SET PRIMARY 1 EA INFUS.SET MC ONE ×2 (11:30)
[2016-07-10] MEDS ORDERED: IV SET PRIMARY PUMP SET 1 EA INFUS.SET MC ONE ×2 (11:36→14:15)
[2016-07-10 11:42] LABS: BASOPHILS # (AUTO) 0.1 /CMM (0.0-0.2); BASOPHILS % (AUTO) 1.1 % (0.0-2.0); EOSINOPHILS % (AUTO) 0.2 % (0.0-6.0); HEMATOCRIT 30 % (39-51); HEMOGLOBIN 10.6 g/dL (13.5-17.5); LYMPHOCYTES # (AUTO) 2.7 /CMM (0.8-4.8); LYMPHOCYTES % (AUTO) 43.8 % (20.0-44.0); MEAN CORPUSCULAR HEMOGLOBIN 31 PG (26.0-33.0); MEAN CORPUSCULAR HGB CONC 35 g/dl (31.0-36.0); MEAN CORPUSCULAR VOLUME 90 fL (80-96); MONOCYTES # (AUTO) 0.5 /CMM (0.1-1.30); MONOCYTES % (AUTO) 7.7 % (2.0-12.0); NEUTROPHILS # (AUTO) 2.9 /CMM (1.8-8.9); NEUTROPHILS % (AUTO) 47.2 % (43.0-81.0); PLATELET COUNT (AUTO) 180 /CMM (150-450); RDW COEFFICIENT OF VARIATION 14.7 (11.5-15.0); RED BLOOD CELL COUNT(AUTO) 3.39 MIL/uL (4.5-6.0); WHITE BLOOD COUNT (AUTO) 6.2 K/uL (4.3-11.0)
[2016-07-10 11:51] LABS: CALCIUM, SERUM 7.4 mg/dL (8.5-10.1); CARBON DIOXIDE 24 mmol/L (21-32); CHLORIDE 93 mmol/L (98-107); CREATININE 0.9 mg/dL (0.6-1.3); GLUCOSE 126 mg/dL (74-106); POTASSIUM 4.2 mmol/L (3.5-5.1); SODIUM SERUM 123 mmol/L (136-145); UREA NITROGEN, BLOOD 19 mg/dL (7-18)
[2016-07-10 11:57] LABS: ALANINE AMINOTRANSFERASE 20 U/L (12-78); ALKALINE PHOSPHATASE 69 U/L (46-116); ASPARTATE AMINOTRANSFERASE 52 U/L (15-37); BILIRUBIN,DIRECT 0.2 mg/dL (0.0-0.2); BILIRUBIN,TOTAL 0.8 mg/dL (0.2-1.0)
[2016-07-10 12:00] LABS: TROPONIN I < 0.017 ng/mL (0.00-0.056)
[2016-07-10 12:00] LABS: BILIRUBIN,URINE NEGATIVE (NEGATIVE); BLOOD, URINE NEGATIVE Ery/uL (NEGATIVE); COLOR,URINE YELLOW (YELLOW); KETONES,URINE NEGATIVE (NEGATIVE); LEUKOCYTE ESTERASE ,URINE 2+ (NEGATIVE); NITRITE, URINE NEGATIVE (NEGATIVE); PH,URINE 7.5 (5.0-8.0); PROTEIN,URINE TRACE mg/dl (NEGATIVE); UGLUCOSE NEGATIVE (NEGATIVE)
[2016-07-10 12:02] LABS: APPEARANCE,URINE SLIGHTLY CLOUDY (CLEAR)
[2016-07-10 12:06] LABS: RBC,URINE 0-2 /HPF (0-2)
[2016-07-10 12:07] LABS: BACTERIA,URINE Few /HPF (None Seen); WBC,URINE 21-50 /HPF (0-3); YEAST,URINE Hyphal filaments /HPF (None Seen)
[2016-07-10 12:09] LABS: SQUAMOUS EPITHELIAL CELL,UR Rare /HPF (None Seen)
[2016-07-10 12:19] LABS: INR 1.11 (0.87-1.13)
[2016-07-10 13:30] VITALS: BP 81/52
[2016-07-10] MEDS ORDERED: MAGNESIUM HYDROXIDE 30 ML UDC PO PRN ×2 (14:00)
[2016-07-10] MEDS ORDERED: ACETAMINOPHEN 325 MG TABLET PO PRN (14:00)
[2016-07-10] MEDS ORDERED: MAG HYDROX/AL HYDROX/SIMETH 30 ML UDC PO PRN (14:00)
[2016-07-10] MEDS ORDERED: ONDANSETRON HCL/PF 4 MG/2 ML VIAL IVP PRN (14:00)
[2016-07-10] MEDS ORDERED: HYDROCODONE/APAP 5/325MG 1 EACH TABLET PO PRN (14:00)
[2016-07-10] MEDS ORDERED: ZOLPIDEM TARTRATE 5 MG TABLET PO PRN (14:00)
[2016-07-10] MEDS ORDERED: ENOXAPARIN SODIUM 40 MG/0.4 ML DISP.SYRIN SQ SCH (14:00)
[2016-07-10] MEDS ORDERED: Z GUARD REMEDY 2 OZ OINT TP PRN (14:00)
[2016-07-10] MEDS ORDERED: LEVOFLOXACIN 500 MG /D5W 100ML 100 ML IV SCH (14:00)
[2016-07-10] MEDS: IV NS 0.9% 1,000 ML IV PRN (14:28)
[2016-07-10] MEDS ORDERED: ENOXAPARIN SODIUM 30 MG/0.3 ML DISP.SYRIN SQ SCH (14:30)
[2016-07-10] MEDS ORDERED: FEE PK DOSING 1 MIN EA MC ONE (14:32)
[2016-07-10] MEDS ORDERED: LEVOFLOXACIN 500 MG /D5W 100ML 500 MG in PREMIX 1 EA IV ONE (15:00)
[2016-07-10] MEDS ORDERED: SECONDARY IV SET 1 EA INFUS.SET MC ONE ×2 (15:03→18:04)
[2016-07-10 16:00] VITALS: BP 101/56
[2016-07-10] MEDS ORDERED: ZOLPIDEM TARTRATE 5 MG TABLET GT PRN (16:25)
[2016-07-10] MEDS ORDERED: MAG HYDROX/AL HYDROX/SIMETH 30 ML UDC GT PRN (16:27)
[2016-07-10] MEDS ORDERED: HYDROCODONE/APAP 5/325MG 1 EACH TABLET GT PRN (16:28)
[2016-07-10] MEDS ORDERED: MAGNESIUM HYDROXIDE 30 ML UDC GT PRN (16:28)
[2016-07-10] MEDS ORDERED: GLYTROL 1,000 ML BAG GT PRN (16:30)
[2016-07-10] MEDS ORDERED: ACETAMINOPHEN 650 MG/20.3 ML UDC GT PRN (17:00)
[2016-07-10] MEDS: BLOOD SUGAR DIAGNOSTIC 1 EACH STRIP IN SCH ×2 (17:34→21:25)
[2016-07-10] MEDS: CARBIDOPA/LEVODOPA 25/100 MG 1 UDTAB GT SCH (17:34)
[2016-07-10] MEDS ORDERED: PIPERACILLIN /TAZOBACTAM 3.375 G in IV D5W 100 ML IV SCH (18:00)
[2016-07-10] MEDS: PIPERACILLIN /TAZOBACTAM 2.25 G in IV D5W 50 ML IV SCH ×2 (18:16→23:35)
[2016-07-10 20:00] VITALS: BP 100/48
[2016-07-10] MEDS ORDERED: PROPRANOLOL HCL 10 MG TABLET GT SCH (21:00)
[2016-07-10] MEDS: TAMSULOSIN 0.4 MG CAP.SR.24H GT SCH (21:25)
[2016-07-10] MEDS: ATORVASTATIN 10 MG TABLET GT SCH (21:25)
[2016-07-11] VITALS: BP 94/47
[2016-07-11] MEDS ORDERED: SECONDARY IV SET 1 EA INFUS.SET MC ONE ×2 (00:10→14:51)
[2016-07-11] MEDS: VANCOMYCIN 0.75 GM in IV D5W 250 ML IV SCH ×2 (00:23→13:17)
[2016-07-11 04:00] VITALS: BP_SYST 105; BP_SYST 106; BP_DIAS 48; BP_DIAS 56
[2016-07-11] MEDS: PIPERACILLIN /TAZOBACTAM 2.25 G in IV D5W 50 ML IV SCH ×4 (05:29→23:07)
[2016-07-11] MEDS: IV NS 0.9% 1,000 ML IV PRN ×2 (05:39→23:07)
[2016-07-11 07:00] VITALS: BP 118/49
[2016-07-11 08:03] LABS: BASOPHILS % (AUTO) 0.3 % (0.0-2.0); HEMATOCRIT 32 % (39-51); HEMOGLOBIN 11.1 g/dL (13.5-17.5); LYMPHOCYTES # (AUTO) 1.5 /CMM (0.8-4.8); LYMPHOCYTES % (AUTO) 34.5 % (20.0-44.0); MEAN CORPUSCULAR HEMOGLOBIN 32 PG (26.0-33.0); MEAN CORPUSCULAR HGB CONC 35 g/dl (31.0-36.0); MEAN CORPUSCULAR VOLUME 92 fL (80-96); MONOCYTES # (AUTO) 0.3 /CMM (0.1-1.30); MONOCYTES % (AUTO) 6.6 % (2.0-12.0); NEUTROPHILS # (AUTO) 2.6 /CMM (1.8-8.9); NEUTROPHILS % (AUTO) 57.6 % (43.0-81.0); PLATELET COUNT (AUTO) 164 /CMM (150-450); RDW COEFFICIENT OF VARIATION 16.5 (11.5-15.0); RED BLOOD CELL COUNT(AUTO) 3.49 MIL/uL (4.5-6.0); WHITE BLOOD COUNT (AUTO) 4.4 K/uL (4.3-11.0)
[2016-07-11] MEDS: ASPIRIN 325 MG TABLET GT SCH (08:17)
[2016-07-11] MEDS: ASCORBIC ACID 500 MG TABLET GT SCH (08:17)
[2016-07-11] MEDS: CALCIUM CARB 250MG /VITAMIN D 1 UDTAB GT SCH (08:17)
[2016-07-11] MEDS: CARBIDOPA/LEVODOPA 25/100 MG 1 UDTAB GT SCH ×3 (08:17→16:37)
[2016-07-11] MEDS: FLUCONAZOLE (100 MG) 100 MG TABLET PO SCH (08:17)
[2016-07-11] MEDS: ZINC SULFATE 220 MG CAPSULE GT SCH (08:17)
[2016-07-11] MEDS: CYANOCOBALAMIN 500 MCG TABLET GT SCH (08:17)
[2016-07-11] MEDS: PANTOPRAZOLE 40 MG/PACK PACK GT SCH (08:17)
[2016-07-11] MEDS: MULTIVIT, IRON, MIN NO. 8, FA 1 TAB TABLET GT SCH (08:17)
[2016-07-11] MEDS: PROSOURCE / PROSTAT (PYXIS) 30 ML UDC GT SCH (08:18)
[2016-07-11] MEDS: BLOOD SUGAR DIAGNOSTIC 1 EACH STRIP IN SCH ×4 (08:18→21:21)
[2016-07-11 08:25] LABS: CALCIUM, SERUM 7.8 mg/dL (8.5-10.1); CREATININE 0.7 mg/dL (0.6-1.3); PHOSPHORUS 2.8 mg/dL (2.5-4.9); POTASSIUM 4.4 mmol/L (3.5-5.1)
[2016-07-11] MEDS: LEVOFLOXACIN 250 MG /D5W 50 ML 250 MG in PREMIX 1 EA IV SCH (14:56)
[2016-07-11 16:00] VITALS: BP 113/78
[2016-07-11] MEDS: LACTOBACILLUS RHAMNOSUS GG 1 EACH CAP.SPRINK GT SCH (16:37)
[2016-07-11 20:00] VITALS: BP 107/56
[2016-07-11 20:16] VITALS: BP 107/56
[2016-07-11] MEDS: TAMSULOSIN 0.4 MG CAP.SR.24H GT SCH (21:21)
[2016-07-11] MEDS: ATORVASTATIN 10 MG TABLET GT SCH (21:27)
[2016-07-12] MEDS: VANCOMYCIN 0.75 GM in IV D5W 250 ML IV SCH (00:52)
[2016-07-12] MEDS: PIPERACILLIN /TAZOBACTAM 2.25 G in IV D5W 50 ML IV SCH ×4 (05:16→23:20)
[2016-07-12 07:30] LABS: BASOPHILS % (AUTO) 0.1 % (0.0-2.0); EOSINOPHILS # (AUTO) 0.1 /CMM (0.0-0.7); EOSINOPHILS % (AUTO) 1.3 % (0.0-6.0); HEMATOCRIT 29 % (39-51); HEMOGLOBIN 9.7 g/dL (13.5-17.5); LYMPHOCYTES # (AUTO) 1.3 /CMM (0.8-4.8); LYMPHOCYTES % (AUTO) 30.8 % (20.0-44.0); MEAN CORPUSCULAR HEMOGLOBIN 31 PG (26.0-33.0); MEAN CORPUSCULAR HGB CONC 34 g/dl (31.0-36.0); MEAN CORPUSCULAR VOLUME 91 fL (80-96); MONOCYTES # (AUTO) 0.3 /CMM (0.1-1.30); MONOCYTES % (AUTO) 7.2 % (2.0-12.0); NEUTROPHILS # (AUTO) 2.6 /CMM (1.8-8.9); NEUTROPHILS % (AUTO) 60.6 % (43.0-81.0); PLATELET COUNT (AUTO) 208 /CMM (150-450); RDW COEFFICIENT OF VARIATION 16.2 (11.5-15.0); RED BLOOD CELL COUNT(AUTO) 3.14 MIL/uL (4.5-6.0); WHITE BLOOD COUNT (AUTO) 4.3 K/uL (4.3-11.0)
[2016-07-12] MEDS: BLOOD SUGAR DIAGNOSTIC 1 EACH STRIP IN SCH ×4 (07:30→21:46)
[2016-07-12 07:53] LABS: CALCIUM, SERUM 7.3 mg/dL (8.5-10.1); CREATININE 0.6 mg/dL (0.6-1.3); POTASSIUM 3.8 mmol/L (3.5-5.1)
[2016-07-12 08:00] VITALS: BP 117/83
[2016-07-12] MEDS: MULTIVIT, IRON, MIN NO. 8, FA 1 TAB TABLET GT SCH (08:51)
[2016-07-12] MEDS: CARBIDOPA/LEVODOPA 25/100 MG 1 UDTAB GT SCH ×3 (08:51→18:00)
[2016-07-12] MEDS: CYANOCOBALAMIN 500 MCG TABLET GT SCH (08:51)
[2016-07-12] MEDS: ASPIRIN 325 MG TABLET GT SCH (08:51)
[2016-07-12] MEDS: CALCIUM CARB 250MG /VITAMIN D 1 UDTAB GT SCH (08:52)
[2016-07-12] MEDS: LACTOBACILLUS RHAMNOSUS GG 1 EACH CAP.SPRINK GT SCH ×2 (08:52→18:00)
[2016-07-12] MEDS: FLUCONAZOLE (100 MG) 100 MG TABLET PO SCH (08:52)
[2016-07-12] MEDS: PROSOURCE / PROSTAT (PYXIS) 30 ML UDC GT SCH (08:57)
[2016-07-12] MEDS: PANTOPRAZOLE 40 MG/PACK PACK GT SCH (08:57)
[2016-07-12] MEDS: ZINC SULFATE 220 MG CAPSULE GT SCH (08:57)
[2016-07-12] MEDS: ASCORBIC ACID 500 MG TABLET GT SCH (09:19)
[2016-07-12] MEDS: CLOTRIMAZOLE 1% 15 GM TUBE TP SCH ×2 (13:38→18:02)
[2016-07-12] MEDS: LEVOFLOXACIN 250 MG /D5W 50 ML 250 MG in PREMIX 1 EA IV SCH (15:03)
[2016-07-12 16:00] VITALS: BP 141/70
[2016-07-12] MEDS: VANCOMYCIN 1 GM in IV D5W 250 ML IV SCH (18:01)
[2016-07-12] MEDS: IV NS 0.9% 1,000 ML IV PRN ×2 (18:42→22:10)
[2016-07-12 20:00] VITALS: BP 138/74
[2016-07-12] MEDS: ATORVASTATIN 10 MG TABLET GT SCH (21:47)
[2016-07-12] MEDS: TAMSULOSIN 0.4 MG CAP.SR.24H GT SCH (21:47)
[2016-07-13] MEDS: GLYTROL 1,000 ML BAG GT PRN ×2 (02:35→21:57)
[2016-07-13] MEDS: PIPERACILLIN /TAZOBACTAM 2.25 G in IV D5W 50 ML IV SCH ×4 (06:08→23:52)
[2016-07-13] MEDS: BLOOD SUGAR DIAGNOSTIC 1 EACH STRIP IN SCH ×4 (06:51→21:57)
[2016-07-13 07:49] LABS: BASOPHILS % (AUTO) 0.2 % (0.0-2.0); EOSINOPHILS # (AUTO) 0.1 /CMM (0.0-0.7); EOSINOPHILS % (AUTO) 2.4 % (0.0-6.0); HEMATOCRIT 32 % (39-51); HEMOGLOBIN 10.9 g/dL (13.5-17.5); LYMPHOCYTES # (AUTO) 1.7 /CMM (0.8-4.8); LYMPHOCYTES % (AUTO) 35.4 % (20.0-44.0); MEAN CORPUSCULAR HEMOGLOBIN 31 PG (26.0-33.0); MEAN CORPUSCULAR HGB CONC 34 g/dl (31.0-36.0); MEAN CORPUSCULAR VOLUME 92 fL (80-96); MONOCYTES # (AUTO) 0.4 /CMM (0.1-1.30); MONOCYTES % (AUTO) 7.6 % (2.0-12.0); NEUTROPHILS # (AUTO) 2.6 /CMM (1.8-8.9); NEUTROPHILS % (AUTO) 54.4 % (43.0-81.0); PLATELET COUNT (AUTO) 256 /CMM (150-450); RDW COEFFICIENT OF VARIATION 15.8 (11.5-15.0); RED BLOOD CELL COUNT(AUTO) 3.48 MIL/uL (4.5-6.0); WHITE BLOOD COUNT (AUTO) 4.9 K/uL (4.3-11.0)
[2016-07-13 07:52] LABS: CALCIUM, SERUM 7.9 mg/dL (8.5-10.1); CREATININE 0.6 mg/dL (0.6-1.3); POTASSIUM 3.9 mmol/L (3.5-5.1)
[2016-07-13 08:00] VITALS: BP 126/62
[2016-07-13] MEDS: ASPIRIN 325 MG TABLET GT SCH (08:50)
[2016-07-13] MEDS: CYANOCOBALAMIN 500 MCG TABLET GT SCH (08:50)
[2016-07-13] MEDS: LACTOBACILLUS RHAMNOSUS GG 1 EACH CAP.SPRINK GT SCH ×2 (08:50→16:48)
[2016-07-13] MEDS: PANTOPRAZOLE 40 MG/PACK PACK GT SCH (08:50)
[2016-07-13] MEDS: ASCORBIC ACID 500 MG TABLET GT SCH (08:51)
[2016-07-13] MEDS: PROSOURCE / PROSTAT (PYXIS) 30 ML UDC GT SCH (08:51)
[2016-07-13] MEDS: CALCIUM CARB 250MG /VITAMIN D 1 UDTAB GT SCH (08:51)
[2016-07-13] MEDS: FLUCONAZOLE (100 MG) 100 MG TABLET PO SCH (08:51)
[2016-07-13] MEDS: ZINC SULFATE 220 MG CAPSULE GT SCH (08:51)
[2016-07-13] MEDS: MULTIVIT, IRON, MIN NO. 8, FA 1 TAB TABLET GT SCH (08:51)
[2016-07-13] MEDS: CARBIDOPA/LEVODOPA 25/100 MG 1 UDTAB GT SCH ×3 (08:51→16:48)
[2016-07-13] MEDS: CLOTRIMAZOLE 1% 15 GM TUBE TP SCH ×2 (08:52→16:48)
[2016-07-13] MEDS: VANCOMYCIN 1 GM in IV D5W 250 ML IV SCH (12:01)
[2016-07-13] MEDS: IV NS 0.9% 1,000 ML IV PRN (12:39)
[2016-07-13] MEDS: LEVOFLOXACIN 250 MG /D5W 50 ML 250 MG in PREMIX 1 EA IV SCH (15:13)
[2016-07-13 16:13] VITALS: BP 127/73
[2016-07-13 20:00] VITALS: BP 108/55
[2016-07-13] MEDS: TAMSULOSIN 0.4 MG CAP.SR.24H GT SCH (21:42)
[2016-07-13] MEDS: ATORVASTATIN 10 MG TABLET GT SCH (21:42)
[2016-07-14] MEDS: IV NS 0.9% 1,000 ML IV PRN (05:32)
[2016-07-14] MEDS: PIPERACILLIN /TAZOBACTAM 2.25 G in IV D5W 50 ML IV SCH ×3 (05:33→17:17)
[2016-07-14] MEDS: BLOOD SUGAR DIAGNOSTIC 1 EACH STRIP IN SCH ×4 (06:46→22:04)
[2016-07-14 07:31] LABS: BASOPHILS % (AUTO) 0.2 % (0.0-2.0); EOSINOPHILS # (AUTO) 0.1 /CMM (0.0-0.7); EOSINOPHILS % (AUTO) 2.8 % (0.0-6.0); HEMATOCRIT 29 % (39-51); LYMPHOCYTES # (AUTO) 1.3 /CMM (0.8-4.8); LYMPHOCYTES % (AUTO) 33.9 % (20.0-44.0); MEAN CORPUSCULAR HEMOGLOBIN 31 PG (26.0-33.0); MEAN CORPUSCULAR HGB CONC 34 g/dl (31.0-36.0); MEAN CORPUSCULAR VOLUME 92 fL (80-96); MONOCYTES # (AUTO) 0.3 /CMM (0.1-1.30); MONOCYTES % (AUTO) 8.1 % (2.0-12.0); PLATELET COUNT (AUTO) 307 /CMM (150-450); RDW COEFFICIENT OF VARIATION 16.6 (11.5-15.0); RED BLOOD CELL COUNT(AUTO) 3.18 MIL/uL (4.5-6.0); WHITE BLOOD COUNT (AUTO) 3.7 K/uL (4.3-11.0)
[2016-07-14 07:33] LABS: CALCIUM, SERUM 7.8 mg/dL (8.5-10.1); CREATININE 0.6 mg/dL (0.6-1.3); POTASSIUM 4.1 mmol/L (3.5-5.1)
[2016-07-14 08:00] VITALS: BP 125/67
[2016-07-14] MEDS: ASPIRIN 325 MG TABLET GT SCH (08:12)
[2016-07-14] MEDS: CYANOCOBALAMIN 500 MCG TABLET GT SCH (08:12)
[2016-07-14] MEDS: PANTOPRAZOLE 40 MG/PACK PACK GT SCH (08:12)
[2016-07-14] MEDS: CARBIDOPA/LEVODOPA 25/100 MG 1 UDTAB GT SCH ×3 (08:12→17:01)
[2016-07-14] MEDS: FLUCONAZOLE (100 MG) 100 MG TABLET PO SCH (08:12)
[2016-07-14] MEDS: CALCIUM CARB 250MG /VITAMIN D 1 UDTAB GT SCH (08:12)
[2016-07-14] MEDS: MULTIVIT, IRON, MIN NO. 8, FA 1 TAB TABLET GT SCH (08:12)
[2016-07-14] MEDS: LACTOBACILLUS RHAMNOSUS GG 1 EACH CAP.SPRINK GT SCH ×2 (08:12→17:01)
[2016-07-14] MEDS: ASCORBIC ACID 500 MG TABLET GT SCH (08:12)
[2016-07-14] MEDS: ZINC SULFATE 220 MG CAPSULE GT SCH (08:12)
[2016-07-14] MEDS: PROSOURCE / PROSTAT (PYXIS) 30 ML UDC GT SCH (08:12)
[2016-07-14] MEDS: CLOTRIMAZOLE 1% 15 GM TUBE TP SCH ×2 (08:13→17:01)
[2016-07-14] MEDS: LEVOFLOXACIN 250 MG /D5W 50 ML 250 MG in PREMIX 1 EA IV SCH (14:58)
[2016-07-14 16:00] VITALS: BP 145/82
[2016-07-14] MEDS: GLYTROL 1,000 ML BAG GT PRN (17:01)
[2016-07-14 20:00] VITALS: BP 135/75
[2016-07-14] MEDS: TAMSULOSIN 0.4 MG CAP.SR.24H GT SCH (22:03)
[2016-07-14] MEDS: ATORVASTATIN 10 MG TABLET GT SCH (22:04)
[2016-07-15] MEDS: PIPERACILLIN /TAZOBACTAM 2.25 G in IV D5W 50 ML IV SCH ×5 (00:22→23:55)
[2016-07-15] MEDS: GLYTROL 1,000 ML BAG GT PRN ×2 (06:09→18:23)
[2016-07-15] MEDS: BLOOD SUGAR DIAGNOSTIC 1 EACH STRIP IN SCH ×4 (06:39→21:40)
[2016-07-15 08:00] VITALS: BP 133/74
[2016-07-15 08:10] LABS: BASOPHILS % (AUTO) 0.4 % (0.0-2.0); EOSINOPHILS # (AUTO) 0.1 /CMM (0.0-0.7); EOSINOPHILS % (AUTO) 2.7 % (0.0-6.0); HEMATOCRIT 30 % (39-51); HEMOGLOBIN 10.3 g/dL (13.5-17.5); LYMPHOCYTES # (AUTO) 1.6 /CMM (0.8-4.8); MEAN CORPUSCULAR HEMOGLOBIN 31 PG (26.0-33.0); MEAN CORPUSCULAR HGB CONC 34 g/dl (31.0-36.0); MEAN CORPUSCULAR VOLUME 92 fL (80-96); MONOCYTES # (AUTO) 0.4 /CMM (0.1-1.30); MONOCYTES % (AUTO) 8.9 % (2.0-12.0); PLATELET COUNT (AUTO) 369 /CMM (150-450); RDW COEFFICIENT OF VARIATION 16.6 (11.5-15.0); WHITE BLOOD COUNT (AUTO) 4.2 K/uL (4.3-11.0)
[2016-07-15 08:24] LABS: CALCIUM, SERUM 7.8 mg/dL (8.5-10.1); CREATININE 0.6 mg/dL (0.6-1.3); POTASSIUM 4.1 mmol/L (3.5-5.1)
[2016-07-15] MEDS: ASCORBIC ACID 500 MG TABLET GT SCH (09:18)
[2016-07-15] MEDS: CYANOCOBALAMIN 500 MCG TABLET GT SCH (09:19)
[2016-07-15] MEDS: ASPIRIN 325 MG TABLET GT SCH (09:19)
[2016-07-15] MEDS: CARBIDOPA/LEVODOPA 25/100 MG 1 UDTAB GT SCH ×3 (09:19→16:47)
[2016-07-15] MEDS: FLUCONAZOLE (100 MG) 100 MG TABLET PO SCH (09:19)
[2016-07-15] MEDS: ZINC SULFATE 220 MG CAPSULE GT SCH (09:19)
[2016-07-15] MEDS: PANTOPRAZOLE 40 MG/PACK PACK GT SCH (09:19)
[2016-07-15] MEDS: LACTOBACILLUS RHAMNOSUS GG 1 EACH CAP.SPRINK GT SCH ×2 (09:19→16:47)
[2016-07-15] MEDS: MULTIVIT, IRON, MIN NO. 8, FA 1 TAB TABLET GT SCH (09:20)
[2016-07-15] MEDS: PROSOURCE / PROSTAT (PYXIS) 30 ML UDC GT SCH (09:20)
[2016-07-15] MEDS: CALCIUM CARB 250MG /VITAMIN D 1 UDTAB GT SCH (09:24)
[2016-07-15] MEDS: CLOTRIMAZOLE 1% 15 GM TUBE TP SCH ×2 (09:25→16:47)
[2016-07-15 12:00] VITALS: BP 124/71
[2016-07-15 16:00] VITALS: BP 124/71
[2016-07-15] MEDS: LEVOFLOXACIN (250MG) 250 MG TABLET GT SCH (16:47)
[2016-07-15] MEDS ORDERED: DEXTROSE 50%-WATER 50 ML DISP.SYRIN IV PRN (18:00)
[2016-07-15 19:58] VITALS: BP 133/69
[2016-07-15] MEDS: ATORVASTATIN 10 MG TABLET GT SCH (21:40)
[2016-07-15] MEDS: TAMSULOSIN 0.4 MG CAP.SR.24H GT SCH (21:40)
[2016-07-15] MEDS: INSULIN REGULAR, HUMAN 100 UNIT/ML 3 ML VIAL SQ PRN (22:09)
[2016-07-15] MEDS ORDERED: SECONDARY IV SET 1 EA INFUS.SET MC ONE (23:53)
[2016-07-16] MEDS ORDERED: IV SET PRIMARY PUMP SET 1 EA INFUS.SET MC ONE (04:19)
[2016-07-16] MEDS ORDERED: IV NS 0.9% 50 ML IV ONE (04:19)
[2016-07-16] MEDS: PIPERACILLIN /TAZOBACTAM 2.25 G in IV D5W 50 ML IV SCH ×2 (06:01→12:12)
[2016-07-16] MEDS: BLOOD SUGAR DIAGNOSTIC 1 EACH STRIP IN SCH ×2 (06:30→11:58)
[2016-07-16] MEDS: PANTOPRAZOLE 40 MG/PACK PACK GT SCH (06:30)
[2016-07-16] MEDS: INSULIN REGULAR, HUMAN 100 UNIT/ML 3 ML VIAL SQ PRN (06:31)
[2016-07-16 07:48] LABS: BASOPHILS % (AUTO) 0.3 % (0.0-2.0); EOSINOPHILS # (AUTO) 0.1 /CMM (0.0-0.7); EOSINOPHILS % (AUTO) 1.7 % (0.0-6.0); HEMATOCRIT 30 % (39-51); HEMOGLOBIN 9.9 g/dL (13.5-17.5); LYMPHOCYTES % (AUTO) 39.5 % (20.0-44.0); MEAN CORPUSCULAR HEMOGLOBIN 31 PG (26.0-33.0); MEAN CORPUSCULAR HGB CONC 33 g/dl (31.0-36.0); MEAN CORPUSCULAR VOLUME 92 fL (80-96); MONOCYTES # (AUTO) 0.3 /CMM (0.1-1.30); MONOCYTES % (AUTO) 6.7 % (2.0-12.0); NEUTROPHILS # (AUTO) 2.6 /CMM (1.8-8.9); NEUTROPHILS % (AUTO) 51.8 % (43.0-81.0); PLATELET COUNT (AUTO) 421 /CMM (150-450); RDW COEFFICIENT OF VARIATION 16.3 (11.5-15.0); RED BLOOD CELL COUNT(AUTO) 3.22 MIL/uL (4.5-6.0); WHITE BLOOD COUNT (AUTO) 5.1 K/uL (4.3-11.0)
[2016-07-16 08:00] VITALS: BP 132/72
[2016-07-16 08:03] LABS: CALCIUM, SERUM 7.9 mg/dL (8.5-10.1); CREATININE 0.7 mg/dL (0.6-1.3); POTASSIUM 4.4 mmol/L (3.5-5.1)
[2016-07-16] MEDS: ASPIRIN 325 MG TABLET GT SCH (09:05)
[2016-07-16] MEDS: PROSOURCE / PROSTAT (PYXIS) 30 ML UDC GT SCH (09:05)
[2016-07-16] MEDS: LACTOBACILLUS RHAMNOSUS GG 1 EACH CAP.SPRINK GT SCH ×2 (09:06→16:13)
[2016-07-16] MEDS: CARBIDOPA/LEVODOPA 25/100 MG 1 UDTAB GT SCH ×3 (09:06→16:14)
[2016-07-16] MEDS: FLUCONAZOLE (100 MG) 100 MG TABLET PO SCH (09:06)
[2016-07-16] MEDS: CYANOCOBALAMIN 500 MCG TABLET GT SCH (09:06)
[2016-07-16] MEDS: CALCIUM CARB 250MG /VITAMIN D 1 UDTAB GT SCH (09:06)
[2016-07-16] MEDS: ASCORBIC ACID 500 MG TABLET GT SCH (09:06)
[2016-07-16] MEDS: MULTIVIT, IRON, MIN NO. 8, FA 1 TAB TABLET GT SCH (09:06)
[2016-07-16] MEDS: ZINC SULFATE 220 MG CAPSULE GT SCH (09:06)
[2016-07-16] MEDS: CLOTRIMAZOLE 1% 15 GM TUBE TP SCH ×2 (09:07→16:14)
[2016-07-16] MEDS ORDERED: PIPE2.255 IV (11:49)
[2016-07-16] MEDS ORDERED: LEVO250T2 GT (11:49)
[2016-07-16] MEDS ORDERED: Fluconazole PO (11:49)
[2016-07-16] MEDS: GLYTROL 1,000 ML BAG GT PRN (12:08)
[2016-07-16] MEDS: LEVOFLOXACIN (250MG) 250 MG TABLET GT SCH (16:14)
== END 2016-07-16 17:15 | DRG 871 ==
LOC: ER 11:24 → TELE 12:40 → MED 07-11 09:42
PROVIDERS: ADMIT Family Medicine; ATTEND Family Medicine
DX: A41.9 Sepsis, unspecified organism (principal); J69.0 Pneumonitis due to inhalation of food and vomit; J96.01 Acute respiratory failure with hypoxia; B37.49 Other urogenital candidiasis; E87.1 Hypo-osmolality and hyponatremia; F02.80 Dementia in other diseases classified elsewhere, unspecified severity, without behavioral disturbance, psychotic disturbance, mood disturbance, and anxiety; G30.9 Alzheimer's disease, unspecified; G20 Parkinson's disease; I25.10 Atherosclerotic heart disease of native coronary artery without angina pectoris; R13.10 Dysphagia, unspecified; E78.5 Hyperlipidemia, unspecified; E53.8 Deficiency of other specified B group vitamins; I10 Essential (primary) hypertension; N40.0 Benign prostatic hyperplasia without lower urinary tract symptoms; D64.9 Anemia, unspecified; E11.9 Type 2 diabetes mellitus without complications; Z93.1 Gastrostomy status; L89.621 Pressure ulcer of left heel, stage 1; L89.611 Pressure ulcer of right heel, stage 1; R65.20 Severe sepsis without septic shock; F41.9 Anxiety disorder, unspecified; F32.9 Major depressive disorder, single episode, unspecified; K59.00 Constipation, unspecified; N48.89 Other specified disorders of penis; R47.02 Dysphasia; Z95.0 Presence of cardiac pacemaker; D72.829 Elevated white blood cell count, unspecified
CPT/HCPCS: 36415; 71010-TC; 80048-TC; 80076-TC; 80202-TC; 81000-TC; 82962-TC; 83605-TC; 83735-TC; 84100-TC; 84484-TC; 85025-TC; 85730-TC; 87040-TC; 87081-TC; 87086-TC; 92526; 92611-TC; A4216; A4606; J0692; J1815; J1956; J2543; J3370; J7030; J7060; Z7610

== ENCOUNTER 2016-08-18 13:38 | Inpatient (IN) | payer MEDICARE, MEDICAID ==
[~2016-08-18] VITALS: Ht 170.2 cm; Wt 59.0 kg
[~2016-08-18 13:38] MED LIST changes: +ACET650S26 GT; -ACET650S26 PO; +ASPI325T2 GT; -ASPI325T2 PO; +CARB-93 GT; -CARB-93 PO; +CYAN10009 GT; -CYAN10009 PO; +FAMO20TA8 GT; -FAMO20TA8 PO; +Fluconazole PO; +LEVO250T2 GT; +PIPE2.255 IV; +PROP20TA7 GT; -PROP20TA7 PO; +TAMS0.4C34 GT; -TAMS0.4C34 PO
--- NOTE | 2016-08-18 13:43 | NUR ---
RICHIE FROM [facility]: DIARRHEA SINCE 0100AM. PLACED ON MONITOR. AWAITING MD ORDER
[2016-08-18] MEDS ORDERED: IV NS 0.9% 1,000 ML BAG IV ONE ×2 (14:30→15:30)
[2016-08-18] MEDS ORDERED: ONDANSETRON HCL/PF 4 MG/2 ML VIAL IVP ONE (14:30)
--- NOTE | 2016-08-18 14:35 | NUR ---
LAC #20 IV ACCESS. BLOOD SAMPLE COLLECTED SENT TO LAB
[2016-08-18 14:38] LABS: BASOPHILS # (AUTO) 0.3 /CMM (0.0-0.2); BASOPHILS % (AUTO) 3.8 % (0.0-2.0); EOSINOPHILS % (AUTO) 0.5 % (0.0-6.0); HEMATOCRIT 33 % (39-51); HEMOGLOBIN 11.4 g/dL (13.5-17.5); LYMPHOCYTES # (AUTO) 2.3 /CMM (0.8-4.8); LYMPHOCYTES % (AUTO) 28.2 % (20.0-44.0); MEAN CORPUSCULAR HEMOGLOBIN 32 PG (26.0-33.0); MEAN CORPUSCULAR HGB CONC 34 g/dl (31.0-36.0); MEAN CORPUSCULAR VOLUME 94 fL (80-96); MONOCYTES # (AUTO) 0.3 /CMM (0.1-1.30); MONOCYTES % (AUTO) 3.3 % (2.0-12.0); NEUTROPHILS # (AUTO) 5.1 /CMM (1.8-8.9); NEUTROPHILS % (AUTO) 64.2 % (43.0-81.0); PLATELET COUNT (AUTO) 318 /CMM (150-450); RDW COEFFICIENT OF VARIATION 16.5 (11.5-15.0); RED BLOOD CELL COUNT(AUTO) 3.54 MIL/uL (4.5-6.0)
[2016-08-18] MEDS ORDERED: ONDANSETRON HCL/PF 4 MG/2 ML VIAL ONE (14:43)
[2016-08-18] MEDS ORDERED: IV NS 0.9% 1,000 ML ONE ×2 (14:44→15:11)
[2016-08-18] MEDS ORDERED: IV SET PRIMARY PUMP SET 1 EA INFUS.SET MC ONE ×2 (14:44→16:17)
--- NOTE | 2016-08-18 14:44 | NUR ---
URINE SAMPLE COLLECTED SENT TO LAB
[2016-08-18 14:49] LABS: APPEARANCE,URINE Clear (CLEAR); BILIRUBIN,URINE Negative (NEGATIVE); BLOOD, URINE Negative Ery/uL (NEGATIVE); COLOR,URINE Yellow (YELLOW); KETONES,URINE Negative (NEGATIVE); LEUKOCYTE ESTERASE ,URINE Negative (NEGATIVE); NITRITE, URINE Negative (NEGATIVE); PROTEIN,URINE Trace mg/dl (NEGATIVE); UGLUCOSE Negative (NEGATIVE)
[2016-08-18 14:55] LABS: ALANINE AMINOTRANSFERASE 12 U/L (12-78); ALBUMIN 1.7 g/dL (3.4-5.0); ALKALINE PHOSPHATASE 75 U/L (46-116); ASPARTATE AMINOTRANSFERASE 36 U/L (15-37); BILIRUBIN,DIRECT 0.1 mg/dL (0.0-0.2); BILIRUBIN,TOTAL 0.6 mg/dL (0.2-1.0); CALCIUM, SERUM 7.7 mg/dL (8.5-10.1); CARBON DIOXIDE 24 mmol/L (21-32); CREATININE 0.7 mg/dL (0.6-1.3); GLUCOSE 99 mg/dL (74-106); LIPASE 111 U/L (73-393); POTASSIUM 5.7 mmol/L (3.5-5.1); TOTAL PROTEIN, SERUM 6.1 g/dL (6.4-8.2); UREA NITROGEN, BLOOD 17 mg/dL (7-18)
[2016-08-18 14:58] LABS: CHLORIDE 77 mmol/L (98-107); SODIUM SERUM 107 mmol/L (136-145)
--- NOTE | 2016-08-18 15:06 | NUR ---
PT BACK FROM CT SCAN
[2016-08-18] MEDS ORDERED: CHOL200026 GT (15:32)
[2016-08-18] MEDS ORDERED: ZOLP5TAB7 GT (15:32)
[2016-08-18] MEDS ORDERED: METF500T4 GT (15:32)
[2016-08-18] MEDS ORDERED: HYDR-552 GT (15:32)
[2016-08-18] MEDS ORDERED: INSU100I4 SQ (15:32)
[2016-08-18] MEDS ORDERED: CALC500T71 GT (15:32)
[2016-08-18] MEDS ORDERED: NUT.100029 GT (15:32)
[2016-08-18] MEDS: CIPROFLOXACIN IV RTU 400 MG in PREMIX 1 EA IV SCH (16:32)
--- NOTE | 2016-08-18 17:01 | NUR ---
gave report to seb GARRISON. TELEMETRY room 306-1 transfer via ACLS protocol under DR valverde.
[2016-08-18] MEDS: METRONIDAZOLE 500MG/ NS 100ML 500 MG in PREMIX 1 EA IV SCH ×2 (17:06→23:53)
[2016-08-18 17:20] VITALS: BP 113/64
--- NOTE | 2016-08-18 17:20 | NUR ---
OPHTHALMIC SURGEON OPENING NOTES RECEIVED PT. FROM ER STAFF IN STABLE CONDITION. NO SOB OR SIGNS OF DISTRESS NOTED. PT. IS CONGESTED. CRACKLES AUSCULTATED IN LOWER LUNG BASES. PT IS SATING WELL ON ROOM AIR @ 98%. PT IS ON TELE MONITORING WITH SR AND A HR OF 81. PT. PRESENTS TO UNIT WITH A GTUBE AND LEFT UPPER CHEST WALL PACEMAKER. IV WAS PLACED IN ER ON THE LEFT AC 20G PATENT AND INTACT INFUSING THE REMAINDER OF HIS CIPRO. WILL ADMINISTER FLAGYL ONCE CIPRO IS COMPLETE. PT. RECEIVED 2 BAGS OF NS IN ER. ADMITTING VITALS SIGNS ARE FOLLOWED: BP= 112/64, HR= 83, RR= 18, O2= 98%, TEMP= 97.2. BED IN LOW LOCKED POSITION, STATE HISTORICAL SOCIETY DIRECTOR AILS UP X3, CALL LIGHT WITHIN REACH. WILL CONTINUE ADMISSION PROCESS AND AWAIT FOR FURTHER ORDERS FROM THE MD.
[2016-08-18] MEDS ORDERED: MAGNESIUM HYDROXIDE 30 ML UDC PO PRN (18:30)
[2016-08-18] MEDS ORDERED: HYDROCODONE/APAP 5/325MG 1 EACH TABLET GT PRN (18:30)
[2016-08-18] MEDS ORDERED: ACETAMINOPHEN 650 MG/20.3 ML UDC GT PRN (18:30)
[2016-08-18] MEDS ORDERED: IV NS 0.9% 1,000 ML IV ONE (18:30)
[2016-08-18] MEDS ORDERED: SECONDARY IV SET 1 EA INFUS.SET MC ONE (18:46)
--- NOTE | 2016-08-18 19:02 | NUR ---
IMAGING TECHNOLOGIST CLOSING NOTES PT. REMAINS IN STABLE CONDITION. NO ACUTE CHANGES IN CONDITION FROM TIME OF ADMISSION UNTIL NOW. WILL ENDORSE TO NIGHTSHIFT NURSE FOR JENAE
[2016-08-18 19:07] VITALS: BP 112/64
--- NOTE | 2016-08-18 19:30 | NUR ---
RN NOTES RECEIVED PATIENT IN BED WITH EYES CLOSED, EASILY AROUSABLE. AO X 1. NO SIGNS OF PAIN, ACUTE DISTRESS NOTED. TELE READING SR HR 72. IV SITE PATENT, INTACT; IVF INFUSING ORDERED. GT PATENT, INTACT, IN PLACE VIA AUSCULTATION. ON LOW BED WITH BILATERAL UPPER SIDE RAILS UP. CALL LIGHT WITHIN EASY REACH. WILL CONTINUE TO MONITOR.
[2016-08-18 20:00] VITALS: BP 91/46
[2016-08-18] MEDS: GLYTROL 1,000 ML BAG GT SCH (21:08)
[2016-08-18] MEDS: TAMSULOSIN 0.4 MG CAP.SR.24H GT SCH (21:09)
[2016-08-18] MEDS: CARBIDOPA/LEVODOPA 25/100 MG 1 UDTAB GT SCH (21:09)
[2016-08-18] MEDS: ZOLPIDEM TARTRATE 5 MG TABLET GT SCH (21:09)
[2016-08-18] MEDS: PROPRANOLOL HCL 10 MG TABLET GT SCH (21:11)
[2016-08-18 21:36] LABS: CALCIUM, SERUM 7.2 mg/dL (8.5-10.1); CARBON DIOXIDE 27 mmol/L (21-32); CHLORIDE 84 mmol/L (98-107); CREATININE 0.6 mg/dL (0.6-1.3); GLUCOSE 93 mg/dL (74-106); POTASSIUM 4.9 mmol/L (3.5-5.1); UREA NITROGEN, BLOOD 14 mg/dL (7-18)
[2016-08-18 21:41] LABS: SODIUM SERUM 112 mmol/L (136-145)
--- NOTE | 2016-08-18 21:45 | NUR ---
RN NOTES RECEIVED NA RESULTS FROM LAB. NA LEVEL OF 112 IMPROVED FROM 107. WILL INFORM DIRECTOR OF VALUATION MD. WILL CONTINUE TO MONITOR PATIENT.
[2016-08-18] MEDS ORDERED: DEXTROSE 50%-WATER 50 ML DISP.SYRIN IV PRN (22:00)
[2016-08-18] MEDS: BLOOD SUGAR DIAGNOSTIC 1 EACH STRIP IN SCH (23:39)
[2016-08-18] MEDS ORDERED: CIPROFLOXACIN IV RTU 200 ML IV ONE (23:41)
[2016-08-18] MEDS ORDERED: METRONIDAZOLE 500MG/ NS 100ML 100 ML IV ONE (23:44)
[2016-08-19] VITALS (9 sets, daily range): BP systolic 99–145; BP diastolic 52–77
[2016-08-19] MEDS ORDERED: SECONDARY IV SET 1 EA INFUS.SET MC ONE ×3 (04:02→23:02)
[2016-08-19] MEDS: CIPROFLOXACIN IV RTU 400 MG in PREMIX 1 EA IV SCH ×2 (04:04→16:30)
[2016-08-19] MEDS: BLOOD SUGAR DIAGNOSTIC 1 EACH STRIP IN SCH ×4 (05:09→23:08)
[2016-08-19] MEDS ORDERED: INSULIN REGULAR, HUMAN 100 UNIT/ML 10 ML VIAL ONE (05:36)
[2016-08-19] MEDS: PROPRANOLOL HCL 10 MG TABLET GT SCH ×3 (05:41→20:50)
[2016-08-19] MEDS: INSULIN REGULAR, HUMAN 100 UNIT/ML 3 ML VIAL SQ PRN ×3 (05:44→17:36)
--- NOTE | 2016-08-19 06:01 | NUR ---
RN NOTES PATIENT ASLEEP, EASILY AROUSABLE. RESPIRATIONS EVEN. NO SIGNS OF PAIN NOTED. DUE MEDS GIVEN WITH NO ASE NOTED. NEEDS ATTENDED. SAFETY PRECAUTIONS AND COMFORT MEASURES IN PLACE. WILL GIVE REPORT TO DAY SHIFT FOR CONTINUITY OF CARE.
[2016-08-19 06:44] LABS: CALCIUM, SERUM 7.1 mg/dL (8.5-10.1); CARBON DIOXIDE 24 mmol/L (21-32); CHLORIDE 86 mmol/L (98-107); CREATININE 0.5 mg/dL (0.6-1.3); GLUCOSE 143 mg/dL (74-106); POTASSIUM 4.2 mmol/L (3.5-5.1); UREA NITROGEN, BLOOD 12 mg/dL (7-18)
[2016-08-19] MEDS ORDERED: IV NS 0.9% 1,000 ML ONE (06:55)
[2016-08-19 07:04] LABS: SODIUM SERUM 115 mmol/L (136-145)
[2016-08-19] MEDS: IV NS 0.9% 1,000 ML IV PRN ×2 (07:05→19:28)
--- NOTE | 2016-08-19 07:08 | NUR ---
RN NOTES RECEIVED NA RESULT FROM LAB. WILL RELAY TO DAY SHIFT.
[2016-08-19] MEDS: METRONIDAZOLE 500MG/ NS 100ML 500 MG in PREMIX 1 EA IV SCH ×3 (08:00→23:08)
--- NOTE | 2016-08-19 08:01 | NUR ---
MS RN NOTE RECEIVED PT. PT SLEEPING, STABLE. PT NON VERBAL. NO S/S OF SOB, PAIN OR DISTRESS. SAFETY MEASURES IN PLACE. BED LOWERED TO LOWEST POSITION, CALL LIGHT IN REACH.
[2016-08-19] MEDS: FAMOTIDINE (20 MG) 20 MG TABLET GT SCH (09:06)
[2016-08-19] MEDS: CALCIUM CARBONATE (1250) 500 MG TABLET GT SCH (09:07)
[2016-08-19] MEDS: CHOLECALCIFEROL 1,000 UNIT TABLET (VIT D3) GT SCH (09:07)
[2016-08-19] MEDS: CARBIDOPA/LEVODOPA 25/100 MG 1 UDTAB GT SCH ×4 (09:07→20:20)
[2016-08-19] MEDS: CYANOCOBALAMIN 500 MCG TABLET GT SCH (09:07)
[2016-08-19] MEDS: ASPIRIN 325 MG TABLET GT SCH (09:07)
[2016-08-19] MEDS: ACETAMINOPHEN 650 MG/20.3 ML UDC GT SCH (09:08)
--- NOTE | 2016-08-19 12:00 | NUR ---
BLADIMIR JUAN NOT GIVEN, IT WAS NOT RECEIVED FROM THE PHARMACY. PHARMACY CALLED X 3. Addendum: 08/19/16 at 1333 by RICKEY GANT MD TAYLOR.
--- NOTE | 2016-08-19 12:10 | NUR ---
WOUND CARE CONSULT: PT PRESENTS WITH INCONTINENCE AND IMMOBILITY, STAGE 2 ULCER TO LOWER BACK AREA, PRESENT ON ADMISSION. ALISON SCORE CURRENTLY 13. RECOMMENDATIONS MADE FOR WOUND CARE AND SKIN PROTECTION. DISCUSSED WITH NURSING STAFF. PT TO BE PLACED ON PATY ISOFLEX LOW AIRLOSS BED WHEN AVAILABLE. WILL SEE PRN. RANDHAWA IN AGREEMENT WITH PLAN OF CARE. Addendum: 08/19/16 at 1212 by MARTHA TREVIZO WNDNU Amended: Links added.
[2016-08-19] MEDS ORDERED: HYDROGEL DRESSING 90 GM TUBE TP PRN (12:30)
[2016-08-19] MEDS: Z GUARD REMEDY 2 OZ OINT TP SCH (13:16)
[2016-08-19] MEDS: Z GUARD REMEDY 2 OZ OINT TP PRN (17:27)
[2016-08-19] MEDS: HYDROGEL DRESSING 90 GM TUBE TP SCH (17:40)
--- NOTE | 2016-08-19 18:24 | NUR ---
RN NOTE PATIENT IS STABLE AND SLEEPING. CONDITION REMAINS. NO S/S OF PAIN OR DISTRESS. WILL ENDORSE TO PROFESSOR OF SPANISH FOR CONTINUITY OF CARE.
--- NOTE | 2016-08-19 19:05 | NUR ---
ELECTRICAL MECHANIC OPENING NOTES: RECEIVED PATIENT IN BED WITH EYES CLOSED, EASILY AROUSABLE. AO X 1. NO SIGNS OF PAIN, ACUTE DISTRESS NOTED. IV SITE PATENT, INTACT; IVF INFUSING WITH NS 1,000ML AT 100ML/HR. GT PATENT, INTACT, IN PLACE VIA AUSCULTATION. CALL LIGHT WITHIN PT'S REACH. BED KEPT IN LOCKED, LOWEST POSITION, AND SIDE RAILS X 2 UP. WILL CONTINUE TO MONITOR PT.
[2016-08-19] MEDS: TAMSULOSIN 0.4 MG CAP.SR.24H GT SCH (21:07)
[2016-08-19] MEDS: ZOLPIDEM TARTRATE 5 MG TABLET GT SCH (21:08)
[2016-08-19] MEDS: GLYTROL 1,000 ML BAG GT SCH (22:02)
--- NOTE | 2016-08-19 22:02 | NUR ---
TRAILER STEERER NOTES: UNABLE TO SCAN GLYTROL BAG D/T ONLY BAGS BEING ON THE FLOOR ARE THE 1000ML BAGS. CHARGE NURSE AWARE SO I MANUALLY ADMINISTERED.
--- NOTE | 2016-08-19 23:11 | NUR ---
PIANO AND ORGAN REFINISHER NOTES: BLOOD SUGAR WAS 110. NO COVERAGE WAS GIVEN. WILL CONTINUE TO MONITOR PT.
[2016-08-20] VITALS (9 sets, daily range): BP systolic 94–134; BP diastolic 50–81
[2016-08-20] MEDS: CIPROFLOXACIN IV RTU 400 MG in PREMIX 1 EA IV SCH ×2 (03:09→17:24)
[2016-08-20] MEDS: PROPRANOLOL HCL 10 MG TABLET GT SCH ×3 (04:18→21:25)
[2016-08-20] MEDS: BLOOD SUGAR DIAGNOSTIC 1 EACH STRIP IN SCH ×4 (06:10→23:54)
[2016-08-20 07:01] LABS: CALCIUM, SERUM 7.5 mg/dL (8.5-10.1); CARBON DIOXIDE 27 mmol/L (21-32); CHLORIDE 92 mmol/L (98-107); CREATININE 0.6 mg/dL (0.6-1.3); GLUCOSE 127 mg/dL (74-106); POTASSIUM 4.5 mmol/L (3.5-5.1); SODIUM SERUM 124 mmol/L (136-145); UREA NITROGEN, BLOOD 10 mg/dL (7-18)
--- NOTE | 2016-08-20 07:15 | NUR ---
HOME EXTENSION AGENT CLOSING NOTES: ALL NEEDS WERE ATTENDED AND ANTICIPATED FOR. PATIENT IN BED WITH EYES CLOSED, EASILY AROUSABLE. A/O X 1. NO SIGNS OF PAIN, ACUTE DISTRESS NOTED. IV SITE PATENT, INTACT; IVF INFUSING WITH NS 1,000ML AT 100ML/HR. GT PATENT AND IS ON GLYTROL 75ML/HR. CALL LIGHT WITHIN PT'S REACH. BED KEPT IN LOCKED, LOWEST POSITION, AND SIDE RAILS X 2 UP. ENDORSED TO AM NURSE FOR JENAE.
--- NOTE | 2016-08-20 07:45 | NUR ---
MS RN NOTE RECEIVED PT. PT SLEEPING, STABLE. PT NON VERBAL. NO S/S OF SOB, PAIN OR DISTRESS. SAFETY MEASURES IN PLACE. BED LOWERED TO LOWEST POSITION, CALL LIGHT IN REACH. WILL CONTINUE TO MONITOR Addendum: 08/20/16 at 0746 by BERNIE GREEN RN IV SITE PATENT AND INTACT NO REDNESS OR INFILTRATION NOTED
[2016-08-20] MEDS: METRONIDAZOLE 500MG/ NS 100ML 500 MG in PREMIX 1 EA IV SCH ×3 (08:44→23:54)
[2016-08-20] MEDS: ASPIRIN 325 MG TABLET GT SCH (08:46)
[2016-08-20] MEDS: CHOLECALCIFEROL 1,000 UNIT TABLET (VIT D3) GT SCH (08:46)
[2016-08-20] MEDS: CARBIDOPA/LEVODOPA 25/100 MG 1 UDTAB GT SCH ×4 (08:46→21:28)
[2016-08-20] MEDS: CYANOCOBALAMIN 500 MCG TABLET GT SCH (08:46)
[2016-08-20] MEDS: CALCIUM CARBONATE (1250) 500 MG TABLET GT SCH (08:46)
[2016-08-20] MEDS: ACETAMINOPHEN 650 MG/20.3 ML UDC GT SCH (08:46)
[2016-08-20] MEDS: FAMOTIDINE (20 MG) 20 MG TABLET GT SCH (08:46)
[2016-08-20] MEDS: Z GUARD REMEDY 2 OZ OINT TP PRN (08:48)
[2016-08-20] MEDS: HYDROGEL DRESSING 90 GM TUBE TP SCH (08:48)
[2016-08-20] MEDS: Z GUARD REMEDY 2 OZ OINT TP SCH (09:01)
[2016-08-20] MEDS: INSULIN REGULAR, HUMAN 100 UNIT/ML 3 ML VIAL SQ PRN ×2 (13:30→17:38)
[2016-08-20] MEDS: IV NS 0.9% 1,000 ML IV PRN (13:31)
[2016-08-20] MEDS: GLYTROL 1,000 ML BAG GT SCH (17:23)
--- NOTE | 2016-08-20 18:38 | NUR ---
MS RN NOTE PT SLEEPING,OPENS EYES DURING CARE. STABLE. PT NON VERBAL. NO S/S OF SOB, PAIN OR DISTRESS NOTED. SAFETY MEASURES IN PLACE.IV SITE PATENT AND INTACT NO REDNESS OR INFILTRATION NOTED.BED LOWERED TO LOWEST POSITION, CALL LIGHT IN REACH WILL CONTINUE TO MONITOR.
--- NOTE | 2016-08-20 19:05 | NUR ---
RN NOTE RECEIVED REPORT. PT RESTING IN BED WITH EYES CLOSED, BREATHING NON-LABORED AND EVEN. NO S/S OF ANY DISTRESS AT THIS TIME. TOLERATING GTF WELL. SAFETY AND COMFORT MEASURES RENDERED. WILL CONT TO MONITOR.
[2016-08-20] MEDS: TAMSULOSIN 0.4 MG CAP.SR.24H GT SCH (21:24)
[2016-08-20] MEDS: ZOLPIDEM TARTRATE 5 MG TABLET GT SCH (21:24)
[2016-08-20] MEDS: HEPARIN SODIUM, PORCINE 5000 UNITS/1 ML VIAL SQ SCH (21:28)
--- NOTE | 2016-08-21 01:00 | NUR ---
RN NOTE NO DISTRESS NOTED AT THIS TIME. PT APPEARS COMFORTABLE. REPOSITIONED Q2HRS.
[2016-08-21] MEDS: CIPROFLOXACIN IV RTU 400 MG in PREMIX 1 EA IV SCH ×2 (03:47→15:03)
[2016-08-21] MEDS: IV NS 0.9% 1,000 ML IV PRN ×2 (03:48→21:56)
[2016-08-21] MEDS: PROPRANOLOL HCL 10 MG TABLET GT SCH ×3 (05:14→21:16)
[2016-08-21] MEDS: BLOOD SUGAR DIAGNOSTIC 1 EACH STRIP IN SCH ×4 (05:14→23:58)
[2016-08-21] MEDS: INSULIN REGULAR, HUMAN 100 UNIT/ML 3 ML VIAL SQ PRN (05:20)
--- NOTE | 2016-08-21 06:52 | NUR ---
RN NOTE NO SIGNIFICANT CHANGES OVERNIGHT. PT RESTING COMFORTABLY IN BED WITH EYES CLOSED. NO S/S OF ANY DISTRESS AT THIS TIME. TOLERATING GTF WELL, IV INTACT AND PATENT, TOLERATING FLUIDS. KEPT CLEAN AND DRY T/O SHIFT - REPOSITIONED Q2HRS. WILL ENDORSE DAY SHIFT RN FOR JENAE.
[2016-08-21 06:54] LABS: BASOPHILS % (AUTO) 0.2 % (0.0-2.0); EOSINOPHILS % (AUTO) 0.3 % (0.0-6.0); HEMATOCRIT 32 % (39-51); HEMOGLOBIN 10.9 g/dL (13.5-17.5); LYMPHOCYTES # (AUTO) 1.1 /CMM (0.8-4.8); LYMPHOCYTES % (AUTO) 27.8 % (20.0-44.0); MEAN CORPUSCULAR HEMOGLOBIN 33 PG (26.0-33.0); MEAN CORPUSCULAR HGB CONC 34 g/dl (31.0-36.0); MEAN CORPUSCULAR VOLUME 96 fL (80-96); MONOCYTES # (AUTO) 0.2 /CMM (0.1-1.30); MONOCYTES % (AUTO) 5.7 % (2.0-12.0); NEUTROPHILS # (AUTO) 2.6 /CMM (1.8-8.9); PLATELET COUNT (AUTO) 308 /CMM (150-450); RDW COEFFICIENT OF VARIATION 17.8 (11.5-15.0); RED BLOOD CELL COUNT(AUTO) 3.33 MIL/uL (4.5-6.0)
[2016-08-21 06:58] LABS: CALCIUM, SERUM 7.4 mg/dL (8.5-10.1); CARBON DIOXIDE 29 mmol/L (21-32); CHLORIDE 96 mmol/L (98-107); CREATININE 0.5 mg/dL (0.6-1.3); GLUCOSE 167 mg/dL (74-106); MAGNESIUM 1.7 mg/dL (1.8-2.4); PHOSPHORUS 2.8 mg/dL (2.5-4.9); POTASSIUM 4.4 mmol/L (3.5-5.1); SODIUM SERUM 128 mmol/L (136-145); UREA NITROGEN, BLOOD 7 mg/dL (7-18)
--- NOTE | 2016-08-21 07:42 | NUR ---
RN NOTES RECEIVED PATIENT IN BED AWAKE, HEAD OF BED ELEVATED, NO SOB OR DISTRESS NOTED. A/O X 1, NON VERBAL, EYE OPENING. IV INTACT AND PATENT. KEPT PATIENT CLEAN AND COMFORTABLE IN BED, CALL LIGHT WITHIN PATIENT REACH, WILL CONTINUE TO MONITOR ACCORDINGLY.
[2016-08-21 08:00] VITALS: BP 115/63
[2016-08-21] MEDS ORDERED: SECONDARY IV SET 1 EA INFUS.SET MC ONE ×2 (08:04→14:27)
[2016-08-21] MEDS: CARBIDOPA/LEVODOPA 25/100 MG 1 UDTAB GT SCH ×4 (08:15→21:16)
[2016-08-21] MEDS: ASPIRIN 325 MG TABLET GT SCH (08:15)
[2016-08-21] MEDS: ACETAMINOPHEN 650 MG/20.3 ML UDC GT SCH (08:15)
[2016-08-21] MEDS: CYANOCOBALAMIN 500 MCG TABLET GT SCH (08:15)
[2016-08-21] MEDS: METRONIDAZOLE 500MG/ NS 100ML 500 MG in PREMIX 1 EA IV SCH ×3 (08:15→23:58)
[2016-08-21] MEDS: CHOLECALCIFEROL 1,000 UNIT TABLET (VIT D3) GT SCH (08:15)
[2016-08-21] MEDS: FAMOTIDINE (20 MG) 20 MG TABLET GT SCH (08:16)
[2016-08-21] MEDS: HEPARIN SODIUM, PORCINE 5000 UNITS/1 ML VIAL SQ SCH ×2 (08:18→21:21)
[2016-08-21] MEDS: Z GUARD REMEDY 2 OZ OINT TP SCH (08:19)
[2016-08-21] MEDS: HYDROGEL DRESSING 90 GM TUBE TP SCH (08:21)
[2016-08-21] MEDS ORDERED: Magnesium 1GM/D5W 100ML PREMIX PIGGYBACK IV ONE (08:30)
[2016-08-21] MEDS ORDERED: Magnesium 1GM/D5W 100ML PREMIX 100 ML IV SCH (08:30)
[2016-08-21] MEDS: MUPIROCIN OINT 2% 22 GM TUBE SCH ×2 (11:23→21:18)
[2016-08-21] MEDS: GLYTROL 1,000 ML BAG GT SCH (11:55)
[2016-08-21 16:00] VITALS: BP 143/72
--- NOTE | 2016-08-21 18:39 | NUR ---
RN NOTES ALL NEEDS PROVIDED, ATTENDED, AND ANTICIPATED. KEPT PATIENT CLEAN AND COMFORTABLE IN BED, CALL LIGHT WITHIN PATIENT REACH, WILL CONTINUE TO MONITOR ACCORDINGLY. ENDORSED TO NEXT SHIFT RN TO CONTINUE CARE.
--- NOTE | 2016-08-21 19:10 | NUR ---
MS/LANDFILL ATTENDANT; RECEIVED PT IN BED SLEEPING. BREATHING NON LABORED. IV SITE CARLITA SWOLLEN WITH IVF ON. I TOLD THE DAY SHIFT RN THAT THE IV SITE IS SWOLLEN. ON GT FEEDING WITH 5 ML RESIDUAL. GT SITE INTACT NO DRESSING NO DRAINAGE. BED ON LOWER POSITION AND LOCKED FOR SAFETY. WITH DVT PUMP ON BOTH LOWER LEGS. SIDE RAILS ARE UP FOR SAFETY. CONTINUE TO MONITOR.
[2016-08-21 20:19] VITALS: BP 148/82
--- NOTE | 2016-08-21 20:20 | NUR ---
MS/AFRICAN HISTORY PROFESSOR; I PLACED A CALL TO ICU TO START AN IV LINE.
--- NOTE | 2016-08-21 20:30 | NUR ---
MS/REMOTE SENSING TECHNICIAN; NITRILES LAB TECHNICIAN JAYY CAME TO START IV LINE. IV SITE IS ON LT HAND # [id number]. IVF RESUMED.
[2016-08-21] MEDS: TAMSULOSIN 0.4 MG CAP.SR.24H GT SCH (21:19)
[2016-08-21] MEDS: ZOLPIDEM TARTRATE 5 MG TABLET GT SCH (22:00)
--- NOTE | 2016-08-22 | NUR ---
MS /RESEARCH CHEMIST; BS 141 REGULAR INSULIN 2 UNITS SQ GIVEN.
[2016-08-22] MEDS: INSULIN REGULAR, HUMAN 100 UNIT/ML 3 ML VIAL SQ PRN ×2 (00:06→06:35)
[2016-08-22] MEDS: GLYTROL 1,000 ML BAG GT SCH (02:41)
[2016-08-22] MEDS ORDERED: SECONDARY IV SET 1 EA INFUS.SET MC ONE (04:03)
[2016-08-22] MEDS: CIPROFLOXACIN IV RTU 400 MG in PREMIX 1 EA IV SCH (04:08)
[2016-08-22] MEDS: PROPRANOLOL HCL 10 MG TABLET GT SCH ×2 (04:59→14:14)
--- NOTE | 2016-08-22 06:00 | NUR ---
MS/SHOE SINGER; BS 141 REGULAR INSULIN 2 UNITS SQ GIVEN.
[2016-08-22] MEDS: BLOOD SUGAR DIAGNOSTIC 1 EACH STRIP IN SCH ×2 (06:28→12:05)
[2016-08-22 06:52] LABS: CALCIUM, SERUM 7.3 mg/dL (8.5-10.1); CARBON DIOXIDE 27 mmol/L (21-32); CHLORIDE 98 mmol/L (98-107); CREATININE 0.5 mg/dL (0.6-1.3); GLUCOSE 146 mg/dL (74-106); POTASSIUM 4.4 mmol/L (3.5-5.1); SODIUM SERUM 130 mmol/L (136-145); UREA NITROGEN, BLOOD 8 mg/dL (7-18)
--- NOTE | 2016-08-22 06:55 | NUR ---
MS/AD OPERATIONS INTERN; SLEPT LAST NIGHT . GT FEEDING TOLERATED. HAD BM X 2 LOOSE. AM CARE DONE BY LIBRARY ATTENDANT. TURNED AND REPOSITIONED. WILL ENDORSE TO THE DAY SHIFT NURSE.
--- NOTE | 2016-08-22 07:32 | NUR ---
MS RN NOTES RECEIVED PATIENT IN BED SLEEPING, AROUSES EASILY. NON VERBAL, ALERT AND ORIENTED X 1, EYE OPENING. NO ACUTE DISTRESS NOTED, NO SOB. IV SITE INTACT AND PATENT. BED IN LOWEST POSITION, HEAD OF BED ELEVATED. CALL LIGHT WITHIN REACH. WILL CONTINUE TO MONITOR ACCORDINGLY
[2016-08-22 07:53] VITALS: BP 122/65
[2016-08-22 08:00] VITALS: BP 122/65
[2016-08-22] MEDS: METRONIDAZOLE 500MG/ NS 100ML 500 MG in PREMIX 1 EA IV SCH (09:05)
[2016-08-22] MEDS: ASPIRIN 325 MG TABLET GT SCH (09:51)
[2016-08-22] MEDS: CHOLECALCIFEROL 1,000 UNIT TABLET (VIT D3) GT SCH (09:51)
[2016-08-22] MEDS: CYANOCOBALAMIN 500 MCG TABLET GT SCH (09:52)
[2016-08-22] MEDS: ACETAMINOPHEN 650 MG/20.3 ML UDC GT SCH (09:52)
[2016-08-22] MEDS: FAMOTIDINE (20 MG) 20 MG TABLET GT SCH (09:52)
[2016-08-22] MEDS: CARBIDOPA/LEVODOPA 25/100 MG 1 UDTAB GT SCH ×2 (09:56→14:03)
[2016-08-22] MEDS: HEPARIN SODIUM, PORCINE 5000 UNITS/1 ML VIAL SQ SCH (10:01)
[2016-08-22] MEDS: HYDROGEL DRESSING 90 GM TUBE TP SCH (10:18)
[2016-08-22] MEDS: Z GUARD REMEDY 2 OZ OINT TP SCH (11:03)
[2016-08-22] MEDS: MUPIROCIN OINT 2% 22 GM TUBE SCH (11:03)
[2016-08-22] MEDS: IV NS 0.9% 1,000 ML IV PRN (11:06)
[2016-08-22 12:00] VITALS: BP 118/64
--- NOTE | 2016-08-22 14:00 | NUR ---
CALLED DA GARRISON AT [facility] FOR PATIENT'S REPORT.
[2016-08-22 14:14] VITALS: BP 138/78
--- NOTE | 2016-08-22 14:30 | NUR ---
DISCHARGE PATIENT WITH STABLE VITAL SIGNS ACCOMPANIED BY 2 ESTATE CONSERVATOR VIA GURNEY WITH DISCHARGE PAPERS.
== END 2016-08-22 14:45 | DRG 371 ==
LOC: ER 13:41 → TELE 16:58 → MED 08-20 10:20
PROVIDERS: ADMIT Internal Medicine; ATTEND Internal Medicine
PROC: 0D20XUZ Change Feeding Device in Upper Intestinal Tract, External Approach (ICD-10-PCS; principal; 2016-08-21)
DX: A04.9 Bacterial intestinal infection, unspecified (principal); G92 Toxic encephalopathy; L89.103 Pressure ulcer of unspecified part of back, stage 3; J69.0 Pneumonitis due to inhalation of food and vomit; E87.1 Hypo-osmolality and hyponatremia; K94.23 Gastrostomy malfunction; J90 Pleural effusion, not elsewhere classified; G20 Parkinson's disease; F02.80 Dementia in other diseases classified elsewhere, unspecified severity, without behavioral disturbance, psychotic disturbance, mood disturbance, and anxiety; I25.10 Atherosclerotic heart disease of native coronary artery without angina pectoris; I10 Essential (primary) hypertension; E78.5 Hyperlipidemia, unspecified; N40.0 Benign prostatic hyperplasia without lower urinary tract symptoms; K62.89 Other specified diseases of anus and rectum; D63.8 Anemia in other chronic diseases classified elsewhere; Y83.3 Surgical operation with formation of external stoma as the cause of abnormal reaction of the patient, or of later complication, without mention of misadventure at the time of the procedure; Z74.01 Bed confinement status; Z79.82 Long term (current) use of aspirin; Z79.899 Other long term (current) drug therapy; R13.10 Dysphagia, unspecified; Z95.0 Presence of cardiac pacemaker; E83.42 Hypomagnesemia; E83.51 Hypocalcemia; E86.0 Dehydration; E88.09 Other disorders of plasma-protein metabolism, not elsewhere classified; G30.9 Alzheimer's disease, unspecified; E53.8 Deficiency of other specified B group vitamins; L89.621 Pressure ulcer of left heel, stage 1; L89.611 Pressure ulcer of right heel, stage 1; L85.3 Xerosis cutis; L98.8 Other specified disorders of the skin and subcutaneous tissue; L89.100 Pressure ulcer of unspecified part of back, unstageable; E86.1 Hypovolemia; M62.50 Muscle wasting and atrophy, not elsewhere classified, unspecified site; Z91.81 History of falling
CPT/HCPCS: 36415; 80048-TC; 80076-TC; 81000-TC; 82962-TC; 83690-TC; 83735-TC; 83935-TC; 84100-TC; 84300-TC; 84443-TC; 85025-TC; 87081-TC; 87086-TC; A4216; A4606; A6248; J0744; J1644; J1815; J2405; J3475; J3490; J7030; Z7610

== ENCOUNTER 2016-10-04 14:44 | Emergency (ER) | payer MEDICARE, MEDICAID ==
[~2016-10-04] VITALS: Ht 172.7 cm; Wt 70.3 kg
[~2016-10-04 14:44] MED LIST changes: -AMIN30LI4 PO; -ASCO500S2 PO; -ATOR10TA PO; -CALC-108 PO; +CALC500T71 GT; +CHOL200026 GT; -Fluconazole PO; +HYDR-552 GT; +INSU100I4 SQ; -LEVO250T2 GT; +MAGN400O6 GT; -MAGN400O6 PO; +METF500T4 GT; -MULT-659 PO; +NUT.100029 GT; -PIPE2.255 IV; -ZINC220C8 PO; +ZOLP5TAB7 GT
--- NOTE | 2016-10-04 14:45 | NUR ---
AT FOR GTBE PLACEMENT.
[2016-10-04] MEDS ORDERED: DIATR MEGLU/DIATRIZOATE SODIUM 30 ML BOTTLE (GASTROGRAPHIN) ONE (14:56)
[2016-10-04] MEDS ORDERED: DIATR MEGLU/DIATRIZOATE SODIUM 30 ML BOTTLE (GASTROGRAPHIN) PO ONE (15:00)
--- NOTE | 2016-10-04 15:06 | NUR ---
MARII AT BS.
[2016-10-04] MEDS ORDERED: FLUD0.1T GT (15:33)
[2016-10-04] MEDS ORDERED: LOPE1LIQ89 GT (15:33)
[2016-10-04] MEDS ORDERED: NUT.100029 GT (15:33)
[2016-10-04] MEDS ORDERED: SITA50TA GT (15:33)
[2016-10-04] MEDS ORDERED: POTA20LI4 GT (15:33)
[2016-10-04] MEDS ORDERED: MULT-659 GT (15:33)
[2016-10-04] MEDS ORDERED: METF500T7 GT (15:33)
[2016-10-04] MEDS ORDERED: NUTR1PAC14 GT (15:33)
[2016-10-04] MEDS ORDERED: AMIN30LI4 GT (15:33)
[2016-10-04] MEDS ORDERED: ZINC220C8 GT (15:33)
[2016-10-04] MEDS ORDERED: VITA1TAB56 GT (15:33)
[2016-10-04] MEDS ORDERED: FOLI1TAB16 GT (15:33)
[2016-10-04] MEDS ORDERED: ASCO500S2 GT (15:33)
--- NOTE | 2016-10-04 15:53 | NUR ---
CALLED [facility] FOR BLS TRANSPORT TO FACILITY. ETA 30 MINUTES
--- NOTE | 2016-10-04 16:30 | NUR ---
REPORT GIVEN TO [facility] FOR TRANSFER BACK TO FACILITY.
[2016-10-04 16:49] VITALS: BP 142/91
== END 2016-10-04 16:49 ==
LOC: ER 14:46
DX: K94.23 Gastrostomy malfunction (principal); G93.40 Encephalopathy, unspecified; E11.9 Type 2 diabetes mellitus without complications; F02.80 Dementia in other diseases classified elsewhere, unspecified severity, without behavioral disturbance, psychotic disturbance, mood disturbance, and anxiety; G20 Parkinson's disease; G30.9 Alzheimer's disease, unspecified; I10 Essential (primary) hypertension; Z43.1 Encounter for attention to gastrostomy; Z79.4 Long term (current) use of insulin; Z79.82 Long term (current) use of aspirin; Z93.1 Gastrostomy status
CPT/HCPCS: 43760; 74000; 99284; A4606; Q9963; Z7610

== ENCOUNTER 2016-10-16 22:04 | Inpatient (IN) | payer MEDICARE, MEDICAID ==
[~2016-10-16] VITALS: Ht 172.7 cm; Wt 49.9 kg
[~2016-10-16 22:04] MED LIST changes: +AMIN30LI4 GT; +ASCO500S2 GT; -FAMO20TA8 GT; +FLUD0.1T GT; +FOLI1TAB16 GT; +LOPE1LIQ89 GT; -METF500T4 GT; +METF500T7 GT; +MULT-659 GT; +NUTR1PAC14 GT; +POTA20LI4 GT; +SITA50TA GT; +VITA1TAB56 GT; +ZINC220C8 GT
--- NOTE | 2016-10-16 22:06 | NUR ---
86 YO MALE BB RA FROM SNF. PT IS NON VERBAL, PER EMS, SNF CALLED 911 FOR LOW SPO2. EMS ADMIN 15LPM NON REBREATHER. PT DS TO ER BED, SKIN WARM AND DRY, RR EVEN AND LABORED. AWAITING ORDERS FROM PROVIDER, WILL CONTINUE
--- NOTE | 2016-10-16 22:10 | NUR ---
PT SON AT BED SIDE
[2016-10-16] MEDS ORDERED: ONDANSETRON HCL/PF 4 MG/2 ML VIAL ONE (22:17)
[2016-10-16] MEDS ORDERED: MORPHINE SULFATE INJ 2 MG/ML DISP.SYRIN ONE (22:17)
[2016-10-16] MEDS ORDERED: VANCOMYCIN 1 GM VIAL ONE (22:29)
[2016-10-16] MEDS ORDERED: PIPERACILLIN /TAZOBACTAM 3.375 G VIAL IV ONE (22:29)
[2016-10-16] MEDS ORDERED: IV NS 0.9% 500 ML BAG IV ONE (22:30)
[2016-10-16] MEDS ORDERED: PIPERACILLIN /TAZOBACTAM 3.375 G in IV D5W 50 ML IV ONE (22:30)
[2016-10-16] MEDS ORDERED: MORPHINE SULFATE INJ 2 MG/ML DISP.SYRIN IV ONE (22:30)
[2016-10-16] MEDS ORDERED: VANCOMYCIN 1 GM in IV D5W 250 ML IV ONE (22:30)
[2016-10-16] MEDS ORDERED: LEVOFLOXACIN 750 MG /D5W 150ML 150 ML IV ONE ×2 (22:30→23:00)
[2016-10-16] MEDS ORDERED: ONDANSETRON HCL/PF 4 MG/2 ML VIAL IVP ONE (22:30)
[2016-10-16 22:55] LABS: BASOPHILS % (AUTO) 0.2 % (0.0-2.0); EOSINOPHILS % (AUTO) 0.1 % (0.0-6.0); HEMATOCRIT 40 % (39-51); HEMOGLOBIN 13.2 g/dL (13.5-17.5); LYMPHOCYTES # (AUTO) 1.5 /CMM (0.8-4.8); LYMPHOCYTES % (AUTO) 33.7 % (20.0-44.0); MEAN CORPUSCULAR HEMOGLOBIN 32 PG (26.0-33.0); MEAN CORPUSCULAR HGB CONC 33 g/dl (31.0-36.0); MEAN CORPUSCULAR VOLUME 97 fL (80-96); MONOCYTES # (AUTO) 0.4 /CMM (0.1-1.30); MONOCYTES % (AUTO) 8.5 % (2.0-12.0); NEUTROPHILS # (AUTO) 2.5 /CMM (1.8-8.9); NEUTROPHILS % (AUTO) 57.5 % (43.0-81.0); PLATELET COUNT (AUTO) 211 /CMM (150-450); RDW COEFFICIENT OF VARIATION 16.1 (11.5-15.0); RED BLOOD CELL COUNT(AUTO) 4.17 MIL/uL (4.5-6.0); WHITE BLOOD COUNT (AUTO) 4.4 K/uL (4.3-11.0)
[2016-10-16 23:03] LABS: CALCIUM, SERUM 8.9 mg/dL (8.5-10.1); CARBON DIOXIDE 30 mmol/L (21-32); CHLORIDE 120 mmol/L (98-107); GLUCOSE 167 mg/dL (74-106); POTASSIUM 3.7 mmol/L (3.5-5.1); UREA NITROGEN, BLOOD 56 mg/dL (7-18)
[2016-10-16 23:06] LABS: SODIUM SERUM 159 mmol/L (136-145)
--- NOTE | 2016-10-16 23:28 | NUR ---
MEDICATED PT ORDERED
--- NOTE | 2016-10-16 23:28 | NUR ---
PT WILL GO TO 328.2 FOR TELE ADMISSION
[2016-10-16] MEDS ORDERED: IV NS 0.9% 1,000 ML BAG IV ONE (23:30)
--- NOTE | 2016-10-16 23:41 | NUR ---
PT TRANSPORTED TO TELE BED WITHOUT INCIDENT
[2016-10-17] VITALS: BP 101/69
--- NOTE | 2016-10-17 01:00 | NUR ---
COATER SMOKING PIPE NOTES 10/16/16 23:50 Patient admitted to Med-Surg unit in no apparent distress. Patient accompanied by family. Asked if family can assist RN to answer admission interview questions and Jefe son agreed to answer interview via phone, He requested if RN can call him when he gets home. 01:00 Called and left message to son Jefe if he can call back to answer admission questions. Awaiting call back. Skin check done, noted with sacral pressure st III, dressing changed, initial wound care done. Noted with skin excoriation on right side of the face, no bleeding noted, and a scab on left lateral foot. Good perineal rendered, kept clean and comfortable. 01:00 Lab called and reported critical result of Lactic acid. Charge nurse made aware. 02:00. New orders given noted and carried out. due meds given as ordered. Provided a sfe and comfortable environment.
[2016-10-17 01:24] LABS: BILIRUBIN,DIRECT 0.1 mg/dL (0.0-0.2); BILIRUBIN,TOTAL 0.5 mg/dL (0.2-1.0)
[2016-10-17] MEDS ORDERED: ZOLPIDEM TARTRATE 5 MG TABLET GT PRN (02:00)
[2016-10-17] MEDS ORDERED: GLYTROL 1,000 ML BAG GT SCH (02:00)
[2016-10-17] MEDS ORDERED: LOPERAMIDE HCL UDC(2 MG/10 ML) 2 MG/10 ML UDC GT PRN (02:00)
[2016-10-17] MEDS ORDERED: NA PHOS,M-B/NA PHOS,DI-BA 1 EA ENEMA RC PRN (02:00)
[2016-10-17] MEDS ORDERED: MAGNESIUM HYDROXIDE 30 ML UDC GT PRN (02:00)
[2016-10-17] MEDS ORDERED: DEXTROSE 50%-WATER 50 ML DISP.SYRIN IV PRN (02:30)
[2016-10-17] MEDS ORDERED: ACETAMINOPHEN 325 MG TABLET PO PRN (02:30)
[2016-10-17] MEDS ORDERED: MORPHINE SULFATE INJ 2 MG/ML DISP.SYRIN IV PRN (02:30)
[2016-10-17] MEDS ORDERED: Z GUARD REMEDY 2 OZ OINT TP PRN (02:30)
[2016-10-17] MEDS ORDERED: ENOXAPARIN SODIUM 40 MG/0.4 ML DISP.SYRIN SQ SCH (02:30)
[2016-10-17] MEDS ORDERED: ONDANSETRON HCL/PF 4 MG/2 ML VIAL IVP PRN (02:30)
[2016-10-17] MEDS ORDERED: ENOXAPARIN SODIUM 40 MG/0.4 ML DISP.SYRIN SQ ONE (02:53)
[2016-10-17] MEDS: IV 1/2NS 1000 ML 1,000 ML IV PRN ×2 (03:07→14:49)
[2016-10-17] MEDS ORDERED: PIPERACILLIN /TAZOBACTAM 2.25 G VIAL IV ONE (05:43)
[2016-10-17] MEDS ORDERED: PIPERACILLIN /TAZOBACTAM 2.25 G in IV D5W 50 ML IV SCH (06:00)
--- NOTE | 2016-10-17 06:00 | NUR ---
RN CLOSING NOTES Spoke with Dr Hamilton regarding DNR status of patient and verified that patient is comfort measures only, CN witness. CN informed Dr Hamilton also that patient is on a non rebreather mask, with 15lpm of O2, saturating 93% to 97%. All due meds given as ordered, tube feeding started. Will continue to monitor.
[2016-10-17] MEDS: BLOOD SUGAR DIAGNOSTIC 1 EACH STRIP IN SCH ×4 (06:20→23:14)
[2016-10-17] MEDS ORDERED: PROPRANOLOL HCL 10 MG TABLET ONE (06:25)
[2016-10-17] MEDS: PROPRANOLOL HCL 10 MG TABLET GT SCH ×3 (06:30→21:38)
--- NOTE | 2016-10-17 07:20 | NUR ---
RN NOTE PT IS IN BED, RESTING COMFORTABLY. PT ON NON-REBREATHER MASK AT 15 L, SATING 98%. IV ON RFA INTACT AND PATENT, RUNNING 1/2 NS AT 100ML/HR. G-TUBE RUNNING GLYTROL ON AT 85 ML/HR. SAFETY MEASURES ARE IN PLACE, CALL LIGHT IS IN REACH. WILL CONTINUE TO MONITOR.
[2016-10-17 08:00] VITALS: BP 120/67
[2016-10-17] MEDS: FLUDROCORTISONE 0.1 MG TABLET GT SCH (09:03)
[2016-10-17] MEDS: LINAGLIPTIN 5 MG TABLET GT SCH (09:03)
[2016-10-17] MEDS: CARBIDOPA/LEVODOPA 25/100 MG 1 UDTAB GT SCH ×4 (09:03→21:37)
[2016-10-17] MEDS: ASPIRIN 325 MG TABLET GT SCH (09:03)
[2016-10-17] MEDS: PROSOURCE / PROSTAT (PYXIS) 30 ML UDC GT SCH ×2 (09:08→17:19)
[2016-10-17] MEDS ORDERED: FEE PK DOSING 1 MIN EA MC ONE (09:08)
[2016-10-17] MEDS: PIPERACILLIN /TAZOBACTAM 3.375 G in IV D5W 50 ML IV SCH ×3 (11:27→23:18)
[2016-10-17] MEDS: INSULIN REGULAR, HUMAN 100 UNIT/ML 3 ML VIAL SQ PRN ×3 (13:15→23:17)
[2016-10-17] MEDS ORDERED: LIDOCAINE 1%-EPI 1:100,000 20 ML VIAL TP ONE (14:00)
[2016-10-17] MEDS ORDERED: SILVER NITRATE APPLICATOR 1 EA BOX TP ONE (14:00)
[2016-10-17 16:00] VITALS: BP 119/67
[2016-10-17] MEDS: VANCOMYCIN 1 GM in IV D5W 250 ML IV SCH (17:19)
--- NOTE | 2016-10-17 19:30 | NUR ---
RN NOTES PT IS IN BED, SLEEPING COMFORTABLY. PT ON NON-REBREATHER MASK AT 15L, SATING 95%. PT WAS CLEANED AND REPOSITIONED, ALL MEDS WERE GIVEN ORDERED. IV ON RFA RUNNING 1/2 NS AT 100 ML/HR. G-TUBE FEEDING RUNNING 85 ML/HR. SAFETY MEASURES ARE IN PLACE, CALL LIGHT IS IN REACH. WILL ENDORSE TO FIRE CAPTAIN MARINE RN FOR CONTINUITY OF CARE.
--- NOTE | 2016-10-17 19:40 | NUR ---
RN NOTE; RECEIVED PT IN BED W/ FAMILY AT THE BED SIDE. BREATHING EVENLY ON NON- REBREATHER MASK. HOLDING O2 SAT OF 96-97% W/ 15LPM OF O2. NO S/S OF PAIN OR DISCOMFORT. GT IN PLACE. GTF MADELAINE WELL W/ HOB ELEVATED. PATIENT WAS SUCTIONED . NEEDS ATTENDED . BED LOW LOCKED. CALL LIGHT WITHIN REACH. WILL CONT TO MONITOR .
[2016-10-17 20:00] VITALS: BP 120/65
--- NOTE | 2016-10-17 20:30 | NUR ---
SPOKE TO THE DTR AT THE BED SIDE REGARDING PT'S CODE STATUS. DTR STATED THEY DON'T WANT CHEST COMPRESSION AND WANTS THEIR DAD TO BE COMFORTABLE. ASKED TH E DTR ABOUT INTUBATION. SHE ALSO REFUSED INTUBATION IN CASE PT NEEDS THAT, CHARGE NURSE, BRANDON HALLMAN. WILL OBTAIN AN ORDER FROM MD.
[2016-10-17] MEDS: ENOXAPARIN SODIUM 40 MG/0.4 ML DISP.SYRIN SQ SCH (21:00)
[2016-10-17] MEDS: TAMSULOSIN 0.4 MG CAP.SR.24H GT SCH (21:37)
--- NOTE | 2016-10-17 21:39 | NUR ---
HELD LOVENOX PER DR. VALDIVIA'S ORDER FOR DEBRIDEMENT IN AM.
[2016-10-17] MEDS ORDERED: GLYTROL 1,000 ML BAG GT PRN (23:00)
[2016-10-17] MEDS: INSULIN DETEMIR 100 UNIT/ML CARTRIDGE SQ SCH (23:16)
[2016-10-18] MEDS ORDERED: GLYTROL 1,000 ML BAG GT PRN (00:30)
[2016-10-18] MEDS: IV 1/2NS 1000 ML 1,000 ML IV PRN (02:32)
--- NOTE | 2016-10-18 03:30 | NUR ---
DR. JAXSON VALDIVIA ON THE FLOOR. SPOKE TO THE MD REGARDING FAMILY WISHES FOR CODE STATUS. MD W/ AN ORDER FOR DNR/DNI. CHARGE NURSE AWARE. ORDER WAS PLACED W/ A RN WITNESS.
[2016-10-18] MEDS: PROPRANOLOL HCL 10 MG TABLET GT SCH ×3 (05:28→22:17)
[2016-10-18] MEDS: PIPERACILLIN /TAZOBACTAM 3.375 G in IV D5W 50 ML IV SCH ×3 (05:29→18:50)
[2016-10-18] MEDS: BLOOD SUGAR DIAGNOSTIC 1 EACH STRIP IN SCH ×3 (05:29→18:49)
--- NOTE | 2016-10-18 06:26 | NUR ---
RN NOTE; PT IN BED SLEEPING, AROUSES EASILY. BREATHING EVENLY. REMAINED ON O2 AT 15LPM VIA NON- REBREATHER MASK. MADELAINE WELL. NO SOB. NO ACUTE EVENT DURING THE NIGHT. NO S/S OF PAIN OR DISCOMFORT. GTF MADELAINE WELL. NEEDS ATTENDED. CLEANED AND DRIED. SUCTIONED PRN. CALL LIGHT WITHIN REACH. BED LOW LOCKED. SRX2. WILL CONT TO MONITOR AND WILL ENDORSE TO AM SHIFT FOR JENAE.
[2016-10-18 06:59] LABS: BASOPHILS % (AUTO) 0.1 % (0.0-2.0); EOSINOPHILS % (AUTO) 0.3 % (0.0-6.0); HEMATOCRIT 28 % (39-51); HEMOGLOBIN 9.1 g/dL (13.5-17.5); LYMPHOCYTES # (AUTO) 1.3 /CMM (0.8-4.8); LYMPHOCYTES % (AUTO) 23.6 % (20.0-44.0); MEAN CORPUSCULAR HEMOGLOBIN 32 PG (26.0-33.0); MEAN CORPUSCULAR HGB CONC 33 g/dl (31.0-36.0); MEAN CORPUSCULAR VOLUME 97 fL (80-96); MONOCYTES # (AUTO) 0.1 /CMM (0.1-1.30); MONOCYTES % (AUTO) 1.6 % (2.0-12.0); NEUTROPHILS # (AUTO) 4.1 /CMM (1.8-8.9); NEUTROPHILS % (AUTO) 74.4 % (43.0-81.0); PLATELET COUNT (AUTO) 110 /CMM (150-450); RDW COEFFICIENT OF VARIATION 15.9 (11.5-15.0); RED BLOOD CELL COUNT(AUTO) 2.88 MIL/uL (4.5-6.0); WHITE BLOOD COUNT (AUTO) 5.6 K/uL (4.3-11.0)
[2016-10-18 07:26] LABS: ALANINE AMINOTRANSFERASE 14 U/L (12-78); ALBUMIN 1.5 g/dL (3.4-5.0); ALKALINE PHOSPHATASE 39 U/L (46-116); ASPARTATE AMINOTRANSFERASE 30 U/L (15-37); BILIRUBIN,TOTAL 0.3 mg/dL (0.2-1.0); CALCIUM, SERUM 7.1 mg/dL (8.5-10.1); CARBON DIOXIDE 28 mmol/L (21-32); CHLORIDE 107 mmol/L (98-107); CREATININE 0.7 mg/dL (0.6-1.3); GLUCOSE 115 mg/dL (74-106); MAGNESIUM 1.7 mg/dL (1.8-2.4); PHOSPHORUS 1.8 mg/dL (2.5-4.9); POTASSIUM 2.9 mmol/L (3.5-5.1); SODIUM SERUM 143 mmol/L (136-145); TOTAL PROTEIN, SERUM 5.4 g/dL (6.4-8.2); UREA NITROGEN, BLOOD 34 mg/dL (7-18)
[2016-10-18 07:29] LABS: CHOLESTEROL 62 mg/dL (<200); HDL CHOLESTEROL 13 mg/dL (40-60); LDL 32 mg/dL (0-99); TRIGLYCERIDES 59 mg/dL (30-150)
--- NOTE | 2016-10-18 07:30 | NUR ---
RN NOTES RECEIVED PATIENT IN SLEEPING, AROUSES EASILY. IN 10LPM O2 VIA NON-REBREATHER MASK, O2 SAT 96%, TOLERATED WELL. NO ACUTE DISTRESS, NO SOB NOTED. NO S/S OF PAIN AND DISCOMFORT. GTF TOLERATED WELL. KEPT PATIENT SAFE AND COMFORTABLE. BED IN LOW POSITION, LOCKED, HOB ELEVATED, SIDERAILS UPX2. CALL LIGHT IN REACH. WILL CONTINUE TO MONITOR ACCORDINGLY.
[2016-10-18 07:54] VITALS: BP 123/68
[2016-10-18 08:00] VITALS: BP 123/68
[2016-10-18] MEDS: PROSOURCE / PROSTAT (PYXIS) 30 ML UDC GT SCH ×2 (09:08→16:06)
[2016-10-18] MEDS: ASPIRIN 325 MG TABLET GT SCH (09:09)
[2016-10-18] MEDS: LINAGLIPTIN 5 MG TABLET GT SCH (09:09)
[2016-10-18] MEDS: FLUDROCORTISONE 0.1 MG TABLET GT SCH (09:09)
[2016-10-18] MEDS: CARBIDOPA/LEVODOPA 25/100 MG 1 UDTAB GT SCH ×4 (09:09→22:17)
[2016-10-18] MEDS ORDERED: POTASSIUM CHLORIDE 20 MEQ TAB.PRT.SR PO ONE (09:30)
[2016-10-18] MEDS: HYDROGEL DRESSING 90 GM TUBE TP SCH (09:38)
[2016-10-18] MEDS ORDERED: POTASSIUM CHLORIDE 20 MEQ POWDER PACKET GT ONE (10:00)
[2016-10-18] MEDS: Magnesium 1GM/D5W 100ML PREMIX 100 ML IV SCH ×2 (10:23→15:12)
--- NOTE | 2016-10-18 13:13 | NUR ---
WOUND CARE CONSULT RECEIVED WOUND CARE CONSULT FOR PATIENT. SURGICAL TEAM IN PLACE. WOUND CARE WILL DEFER WOUND TREATMENTS TO SURGICAL TEAM AND THIS TIME. PATIENT WITH ALISON AT 11. PATIENT ON PATY ISOFLEX LOW AIRLOSS SPECIALTY BED. CONTINUE TURNING SCHED Q 2 HOURS AND HEEL FLOATING PATIENT CONDITION PERMITS. CONTINUE USE OF Z GUARD FOR SKIN/MOISTURE MANAGMENT. ALL PREVENTION MEASURES NOTED TO BE IN PLACE PER CURRENT PLAN OF CARE.
[2016-10-18] MEDS: VANCOMYCIN 1 GM in IV D5W 250 ML IV SCH (13:41)
[2016-10-18] MEDS ORDERED: NEUTRA PHOS 1 POWD.PACKET NG ONE (14:00)
[2016-10-18] MEDS ORDERED: Magnesium 1GM/D5W 100ML PREMIX 100 ML IV SCH (15:30)
[2016-10-18 16:00] VITALS: BP 122/65
[2016-10-18] MEDS: LACTOBACILLUS RHAMNOSUS GG 1 EACH CAP.SPRINK PO SCH (16:06)
--- NOTE | 2016-10-18 16:10 | NUR ---
RN NOTES WOUND DEBRIDEMENT DONE BY ROLANDO WOODS NP. PATIENT TOLERATED WELL. PICTURE TAKEN PLACED ON CHART. WILL CONTINUE TO MONITOR ACCORDINGLY
--- NOTE | 2016-10-18 19:30 | NUR ---
RN NOTES PATIENT IN BED RESTING. HOB ELEVATED FOR MAXIMUM LUNG EXPANSION. NO ACUTE DISTRESS, NO SOB NOTED. ALL NEEDS ATTENDED AND PROVIDED. KEPT PATIENT SAFE AND COMFORTABLE. REPOSITIONED PATIENT EVERY 2 HOURS. BED IN LOW POSITION, LOCKED, SIDERAILS UP X2. CALL LIGHT IN REACH. ENDORSED TO ANALYTICAL CHEMISTRY TEACHER RN FOR JENAE.
[2016-10-18 20:00] VITALS: BP 100/58
[2016-10-18] MEDS: ENOXAPARIN SODIUM 40 MG/0.4 ML DISP.SYRIN SQ SCH (21:00)
[2016-10-18] MEDS: INSULIN DETEMIR 100 UNIT/ML CARTRIDGE SQ SCH (22:00)
[2016-10-18] MEDS: TAMSULOSIN 0.4 MG CAP.SR.24H GT SCH (22:17)
[2016-10-19] MEDS: BLOOD SUGAR DIAGNOSTIC 1 EACH STRIP IN SCH ×5 (01:01→23:53)
[2016-10-19] MEDS: PIPERACILLIN /TAZOBACTAM 3.375 G in IV D5W 50 ML IV SCH ×4 (01:27→17:33)
[2016-10-19] MEDS: VANCOMYCIN 1 GM in IV D5W 250 ML IV SCH (05:44)
[2016-10-19] MEDS: GLYTROL 1,000 ML BAG GT PRN (05:48)
[2016-10-19] MEDS: PROPRANOLOL HCL 10 MG TABLET GT SCH ×3 (05:50→20:38)
--- NOTE | 2016-10-19 06:00 | NUR ---
NO INSULIN WAS PROVIDED DUE TO PT TENDENCY TO BECOME HYPOGLYCEMIC. WILL CONTINUE TO MONITOR CLOSELY.
[2016-10-19] MEDS: IV 1/2NS 1000 ML 1,000 ML IV PRN ×2 (06:12→17:43)
[2016-10-19 06:30] LABS: BASOPHILS % (AUTO) 0.2 % (0.0-2.0); EOSINOPHILS % (AUTO) 0.6 % (0.0-6.0); HEMATOCRIT 30 % (39-51); HEMOGLOBIN 10.2 g/dL (13.5-17.5); LYMPHOCYTES # (AUTO) 0.9 /CMM (0.8-4.8); LYMPHOCYTES % (AUTO) 13.5 % (20.0-44.0); MEAN CORPUSCULAR HEMOGLOBIN 32 PG (26.0-33.0); MEAN CORPUSCULAR HGB CONC 34 g/dl (31.0-36.0); MEAN CORPUSCULAR VOLUME 96 fL (80-96); MONOCYTES # (AUTO) 0.1 /CMM (0.1-1.30); MONOCYTES % (AUTO) 1.3 % (2.0-12.0); NEUTROPHILS # (AUTO) 5.7 /CMM (1.8-8.9); NEUTROPHILS % (AUTO) 84.4 % (43.0-81.0); PLATELET COUNT (AUTO) 127 /CMM (150-450); RDW COEFFICIENT OF VARIATION 15.6 (11.5-15.0); RED BLOOD CELL COUNT(AUTO) 3.17 MIL/uL (4.5-6.0); WHITE BLOOD COUNT (AUTO) 6.7 K/uL (4.3-11.0)
[2016-10-19 06:45] LABS: CALCIUM, SERUM 8.1 mg/dL (8.5-10.1); CARBON DIOXIDE 28 mmol/L (21-32); CHLORIDE 113 mmol/L (98-107); CREATININE 0.7 mg/dL (0.6-1.3); GLUCOSE 158 mg/dL (74-106); MAGNESIUM 2.1 mg/dL (1.8-2.4); PHOSPHORUS 2.6 mg/dL (2.5-4.9); POTASSIUM 3.6 mmol/L (3.5-5.1); SODIUM SERUM 149 mmol/L (136-145); UREA NITROGEN, BLOOD 32 mg/dL (7-18)
--- NOTE | 2016-10-19 07:23 | NUR ---
MS RN CLOSING NOTE PT REMAINED STABLE DURING BATCH MIXER OPERATOR, NO SIGNIFICANT CHANGES NOTED, WILL ENDORSE TO INCOMING NURSE FOR JENAE.
--- NOTE | 2016-10-19 07:30 | NUR ---
RN MS NOTES PT IN BED, AWAKE, NON VERBAL, NOT IN DISTRESS, ON O2 VIA MASK, NO FACIAL GRIMACING OR MOANING, IV FLUIDS INFUSING WELL, CALL LIGHT WITHIN REACH, NEEDS ATTENDED.
[2016-10-19 08:00] VITALS: BP 132/72
[2016-10-19 08:12] LABS: BAND % (MANUAL) 9 % (0.0-5.0); LYMPHOCYTES % (MANUAL) 8 % (16-48); MONOCYTES % (MANUAL) 2 % (0-11.0); MYELOCYTES % 1 % (0-0); NEUTROPHILS % (MANUAL) 80 (42-76)
[2016-10-19] MEDS: LACTOBACILLUS RHAMNOSUS GG 1 EACH CAP.SPRINK PO SCH ×2 (09:03→17:33)
[2016-10-19] MEDS: LINAGLIPTIN 5 MG TABLET GT SCH (09:03)
[2016-10-19] MEDS: ASPIRIN 325 MG TABLET GT SCH (09:03)
[2016-10-19] MEDS: CARBIDOPA/LEVODOPA 25/100 MG 1 UDTAB GT SCH ×4 (09:03→20:17)
[2016-10-19] MEDS: FLUDROCORTISONE 0.1 MG TABLET GT SCH (09:03)
[2016-10-19] MEDS: HYDROGEL DRESSING 90 GM TUBE TP SCH (09:04)
[2016-10-19] MEDS: PROSOURCE / PROSTAT (PYXIS) 30 ML UDC GT SCH ×2 (09:07→17:33)
--- NOTE | 2016-10-19 09:16 | NUR ---
AUDIENCE DEVELOPMENT MANAGER NOTES PT IN BED, NO SIGN OF PAIN OR DISTRESS, SEEN BY DR JACOB, ORDER GIVEN TO TITRATE DOWN O2, O2 PLACED AT 7LPM VIA MASK, O2 SAT AT 97%, WILL CONTINUE TO MONITOR.
--- NOTE | 2016-10-19 11:00 | NUR ---
RN MS NOTES NOTED PT WITH REDNESS AT THE BACK, NO OPEN SKIN OR SWELLING NOTED, PHOTOS TAKEN, MD INFORMED, WOUND CONSULT ORDERED, KEPT PT TURNED AND REPOSITIONED FROM SIDE TO SIDE TO KEEP PRESSURE OFF BONY PROMINENCE AT THE BACK, KEPT SKIN CLEAN AND DRY, MEPILEX APPLIED.
[2016-10-19] MEDS: INSULIN REGULAR, HUMAN 100 UNIT/ML 3 ML VIAL SQ PRN ×2 (12:09→23:57)
[2016-10-19] MEDS: IPRATROPIUM NEB FS 0.5 MG/2.5 ML AMPUL.NEB NEB SCH ×4 (12:25→23:30)
[2016-10-19] MEDS ORDERED: ALBUTEROL HALF STRENGTH 1.25 MG/3 ML VIAL.NEB NEB SCH (13:00)
--- NOTE | 2016-10-19 13:00 | NUR ---
RN MS NOTES PT IN BED, RESTING, NOT IN DISTRESS, NO SIGN OF PAIN OR DISCOMFORT, PT SEEN BY DR. OSCAR, ORDERS GIVEN, BREATHING TREATMENT GIVEN BY RT, JUDE SANDS VISITED, UPDATED WITH CURRENT PLAN OF CARE, VERBALIZED UNDERSTANDING, TURNED AND REPOSITIONED PT Q2 HRS, GT FEEDING INFUSING WELL.
[2016-10-19] MEDS: ALBUTEROL HALF STRENGTH 1.25 MG/3 ML VIAL.NEB NEB SCH ×3 (15:32→23:30)
[2016-10-19 16:00] VITALS: BP 158/86
[2016-10-19] MEDS: VANCOMYCIN 0.75 GM in IV D5W 250 ML IV SCH (18:36)
--- NOTE | 2016-10-19 18:41 | NUR ---
RN MS NOTES PT IN BED, ASLEEP, OPENS EYES WHEN AROUSED, NO FACIAL GRIMACING, NOT IN DISTRESS, ON O2 AT 7LPM VIA MASK, O2 SAT AT 97%, GT FEEDING INFUSING WELL, IV FLUIDS INFUSING WELL, KEPT HOB ELEVATED, PM CARE RENDERED, TURNED AND REPOSITIONED Q2 HRS, KEPT SKIN CLEAN AND DRY, KEPT CLEAN, DRY AND COMFORTABLE.
--- NOTE | 2016-10-19 19:19 | NUR ---
MS/RN OPENING NOTES PATIENT IN BED , NON VERBAL ON NON BREATHING MASS, REQUIRE FREQUENT MONITORING FOR S/S OF SOB OR DISCOMFORT, ON GTUBE FEEDING RUNNING AT 85 CC/HR, WILL CHECK RESIDUAL AND PLACEMENT. REQUIRE TURNING AND REPOSITION SIDE TO SIDE FOR SACRAL STAGE 3 AND NEW SKIN REDNESS ON BACK. RECEIVED ENDORSEMENT FROM AM RN REGARDING PLAN OF CARE. WILL CONTINUE TO MONITOR.
[2016-10-19 20:00] VITALS: BP_SYST 101; BP_SYST 125; BP_DIAS 47; BP_DIAS 56
--- NOTE | 2016-10-19 20:11 | NUR ---
ms/rn notes temperature at 99.9 will give prn tylenol 650mg via gtube and monitor, also will give coolong measures.
[2016-10-19] MEDS: ENOXAPARIN SODIUM 40 MG/0.4 ML DISP.SYRIN SQ SCH (20:20)
[2016-10-19 20:26] VITALS: BP 125/56
[2016-10-19 20:36] VITALS: BP 98/56
[2016-10-19] MEDS: TAMSULOSIN 0.4 MG CAP.SR.24H GT SCH (21:26)
[2016-10-19] MEDS: INSULIN DETEMIR 100 UNIT/ML CARTRIDGE SQ SCH (21:38)
[2016-10-19 22:01] VITALS: BP 99/57
[2016-10-20] MEDS: PIPERACILLIN /TAZOBACTAM 3.375 G in IV D5W 50 ML IV SCH ×3 (00:02→11:16)
[2016-10-20] MEDS: GLYTROL 1,000 ML BAG GT PRN (00:39)
[2016-10-20 04:00] VITALS: BP 130/75
[2016-10-20] MEDS: IPRATROPIUM NEB FS 0.5 MG/2.5 ML AMPUL.NEB NEB SCH ×3 (04:15→12:07)
[2016-10-20] MEDS: ALBUTEROL HALF STRENGTH 1.25 MG/3 ML VIAL.NEB NEB SCH ×3 (04:15→12:07)
[2016-10-20] MEDS: PROPRANOLOL HCL 10 MG TABLET GT SCH ×2 (05:11→12:29)
[2016-10-20] MEDS: BLOOD SUGAR DIAGNOSTIC 1 EACH STRIP IN SCH ×2 (05:26→11:34)
[2016-10-20] MEDS: VANCOMYCIN 0.75 GM in IV D5W 250 ML IV SCH (06:21)
--- NOTE | 2016-10-20 07:30 | NUR ---
RN MS NOTES PT IN BED, RESTING, NOT IN DISTRESS, NO SIGN OF PAIN OR DISCOMFORT, ON O2 AT 7LPM VIA MASK, O2 SAT AT 97%, KEPT HOB ELEVATED TO PROMOTE OXYGENATION, INSERTED NEW IV SALINE LOCK AT RIGHT FOREARM, WITH GOOD BLOOD RETURN, TOLERATED PROCEDURE WELL, IV FLUIDS INFUSING WELL, GT TOLERATING WELL, REPOSITIONED FOR COMFORT.
--- NOTE | 2016-10-20 07:30 | NUR ---
ms/rn closing notes patient in bed,hob elevated, require extensive assistance and repositioning due to wound on back. pulled out iv and will inform am rn. require mask with 7 to 10liter for oxygenation to maintain at 97% will endorse to am rn regarding ivy.
[2016-10-20 08:00] VITALS: BP 134/79
[2016-10-20 08:01] LABS: CALCIUM, SERUM 8.4 mg/dL (8.5-10.1); CARBON DIOXIDE 29 mmol/L (21-32); CHLORIDE 108 mmol/L (98-107); CREATININE 0.6 mg/dL (0.6-1.3); GLUCOSE 138 mg/dL (74-106); POTASSIUM 3.6 mmol/L (3.5-5.1); SODIUM SERUM 145 mmol/L (136-145); UREA NITROGEN, BLOOD 21 mg/dL (7-18)
[2016-10-20] MEDS: LINAGLIPTIN 5 MG TABLET GT SCH (08:38)
[2016-10-20] MEDS: LACTOBACILLUS RHAMNOSUS GG 1 EACH CAP.SPRINK PO SCH (08:38)
[2016-10-20] MEDS: HYDROGEL DRESSING 90 GM TUBE TP SCH (08:38)
[2016-10-20] MEDS: CARBIDOPA/LEVODOPA 25/100 MG 1 UDTAB GT SCH ×2 (08:38→12:30)
[2016-10-20] MEDS: ASPIRIN 325 MG TABLET GT SCH (08:38)
[2016-10-20] MEDS: FLUDROCORTISONE 0.1 MG TABLET GT SCH (08:38)
[2016-10-20] MEDS: PROSOURCE / PROSTAT (PYXIS) 30 ML UDC GT SCH (08:38)
[2016-10-20] MEDS ORDERED: PIPE3.376 IV (09:30)
[2016-10-20] MEDS: IV 1/2NS 1000 ML 1,000 ML IV PRN (11:16)
[2016-10-20] MEDS: INSULIN REGULAR, HUMAN 100 UNIT/ML 3 ML VIAL SQ PRN (11:42)
[2016-10-20 12:29] VITALS: BP 135/77
--- NOTE | 2016-10-20 12:40 | NUR ---
RN MS NOTES PT IN BED, SEEN BY DR. BRASHER, DISCHARGE ORDER GIVEN, DISCHARGE AND MEDICATION INSTRUCTIONS GIVEN TO JUDE WICHO AND [facility] ADMITTING NURSE [facility], VERBALIZED UNDERSTANDING, PT REMAINS STABLE ON 7LPM O2 VIA MASK, KEPT HOB ELEVATED, TOLERATING CURRENT GT FEEDING WELL, TURNED AND REPOSITIONED Q2 HRS, WOUND TREATMENTS DONE.
--- NOTE | 2016-10-20 15:00 | NUR ---
RN MS NOTES PT IN BED, AWAKE, NOT IN DISTRESS, NO SIGN OF PAIN OR DISCOMFORT, REPORT GIVEN TO [facility] OF [facility], PT'S SON WICHO INFORMED OF PT'S TRANSFER BACK TO SNF, PT PICKED UP BY 2 AMBULANCE PERSONNEL, LEFT VIA GUERNEY IN STABLE CONDITION.
== END 2016-10-20 14:50 | DRG 177 ==
LOC: ER 22:05 → MED 23:54
PROVIDERS: ADMIT Nurse Practitioner Acute Care; ATTEND Nurse Practitioner Acute Care
DX: J15.6 Pneumonia due to other Gram-negative bacteria (principal); J96.01 Acute respiratory failure with hypoxia; N17.0 Acute kidney failure with tubular necrosis; E43 Unspecified severe protein-calorie malnutrition; G92 Toxic encephalopathy; L89.153 Pressure ulcer of sacral region, stage 3; E87.0 Hyperosmolality and hypernatremia; D68.69 Other thrombophilia; R13.10 Dysphagia, unspecified; R53.2 Functional quadriplegia; E87.2 Acidosis; Z68.1 Body mass index [BMI] 19.9 or less, adult; G30.9 Alzheimer's disease, unspecified; F02.80 Dementia in other diseases classified elsewhere, unspecified severity, without behavioral disturbance, psychotic disturbance, mood disturbance, and anxiety; E11.9 Type 2 diabetes mellitus without complications; E86.0 Dehydration; E66.01 Morbid (severe) obesity due to excess calories; E86.1 Hypovolemia; E53.8 Deficiency of other specified B group vitamins; I10 Essential (primary) hypertension; G20 Parkinson's disease; I25.10 Atherosclerotic heart disease of native coronary artery without angina pectoris; N40.0 Benign prostatic hyperplasia without lower urinary tract symptoms; Z51.5 Encounter for palliative care; Z66 Do not resuscitate; Z91.81 History of falling; K59.00 Constipation, unspecified; Z79.899 Other long term (current) drug therapy; Z79.4 Long term (current) use of insulin; Z79.82 Long term (current) use of aspirin; Z98.890 Other specified postprocedural states; L89.891 Pressure ulcer of other site, stage 1; Z93.1 Gastrostomy status
CPT/HCPCS: 36415; 71010-TC; 80048-TC; 80053-TC; 80061-TC; 80202-TC; 82247-TC; 82248-TC; 82962-TC; 83605-TC; 83735-TC; 84100-TC; 85025-TC; 87040-TC; A4606; A6248; A6402; J1650; J1815; J1956; J2270; J2405; J2543; J3370; J3475; J3490; J7030; J7040; J7060; Z7610

== ENCOUNTER 2016-10-20 17:35 | Inpatient (IN) | payer MEDICARE, MEDICAID ==
[~2016-10-20] VITALS: Ht 172.7 cm; Wt 55.3 kg
[~2016-10-20 17:35] MED LIST changes: +PIPE3.376 IV
--- NOTE | 2016-10-20 17:37 | NUR ---
PT BIBRA FROM SNF TO ER BED 11. PER REPORT, PT WAS NOTED TO BE "WARM TO TOUCH." CORE TEMP OBTAINED RAILROAD SWITCHMAN AND IT WAS 101. PT WAS RECENTLLY DISCHARGE. GOWNED AND PLACED ON MONITOR. ON 02@2L/MIN SATTING LOW 90'S. AWAITING MD ALEXANDER.
--- NOTE | 2016-10-20 17:49 | NUR ---
DR MASTERS AT BEDSIDE FOR EVAL.
[2016-10-20] MEDS ORDERED: ACETAMINOPHEN 650 MG/SUPP.RECT RC ONE ×2 (18:00→18:40)
[2016-10-20] MEDS ORDERED: VANCOMYCIN 1 GM in IV D5W 250 ML IV ONE (18:00)
[2016-10-20] MEDS ORDERED: CEFEPIME 1 GM in IV D5W 50 ML IV ONE (18:00)
[2016-10-20] MEDS ORDERED: IV NS 0.9% 1,000 ML BAG IV ONE (18:00)
--- NOTE | 2016-10-20 18:10 | NUR ---
IV LINE STARTED. BLOOD DRAWN AND SENT TO LAB.
--- NOTE | 2016-10-20 18:15 | NUR ---
RADIOLOGY AT BEDSIDE FOR CHEST XRAY.
[2016-10-20 18:19] LABS: BASOPHILS # (AUTO) 0.1 /CMM (0.0-0.2); BASOPHILS % (AUTO) 2.4 % (0.0-2.0); EOSINOPHILS # (AUTO) 0.1 /CMM (0.0-0.7); EOSINOPHILS % (AUTO) 2.5 % (0.0-6.0); HEMATOCRIT 29 % (39-51); HEMOGLOBIN 9.8 g/dL (13.5-17.5); LYMPHOCYTES # (AUTO) 0.9 /CMM (0.8-4.8); LYMPHOCYTES % (AUTO) 17.3 % (20.0-44.0); MEAN CORPUSCULAR HEMOGLOBIN 32 PG (26.0-33.0); MEAN CORPUSCULAR HGB CONC 34 g/dl (31.0-36.0); MEAN CORPUSCULAR VOLUME 94 fL (80-96); MONOCYTES # (AUTO) 0.4 /CMM (0.1-1.30); MONOCYTES % (AUTO) 6.7 % (2.0-12.0); NEUTROPHILS # (AUTO) 3.8 /CMM (1.8-8.9); NEUTROPHILS % (AUTO) 71.1 % (43.0-81.0); PLATELET COUNT (AUTO) 153 /CMM (150-450); RDW COEFFICIENT OF VARIATION 14.3 (11.5-15.0); RED BLOOD CELL COUNT(AUTO) 3.11 MIL/uL (4.5-6.0); WHITE BLOOD COUNT (AUTO) 5.3 K/uL (4.3-11.0)
[2016-10-20 18:33] LABS: INR 1.05 (0.87-1.13); PROTHROMBIN TIME 10.9 SECS (9.5-12.7)
[2016-10-20 18:37] LABS: CALCIUM, SERUM 7.8 mg/dL (8.5-10.1); CARBON DIOXIDE 28 mmol/L (21-32); CHLORIDE 107 mmol/L (98-107); CREATININE 0.6 mg/dL (0.6-1.3); GLUCOSE 84 mg/dL (74-106); POTASSIUM 3.1 mmol/L (3.5-5.1); SODIUM SERUM 142 mmol/L (136-145); UREA NITROGEN, BLOOD 21 mg/dL (7-18)
[2016-10-20 18:43] LABS: ALANINE AMINOTRANSFERASE 28 U/L (12-78); ALBUMIN 1.6 g/dL (3.4-5.0); ALKALINE PHOSPHATASE 68 U/L (46-116); ASPARTATE AMINOTRANSFERASE 85 U/L (15-37); BILIRUBIN,DIRECT 0.1 mg/dL (0.0-0.2); BILIRUBIN,TOTAL 0.4 mg/dL (0.2-1.0); TOTAL PROTEIN, SERUM 5.8 g/dL (6.4-8.2)
[2016-10-20 18:45] LABS: TROPONIN I 0.025 ng/mL (0.00-0.056)
--- NOTE | 2016-10-20 20:08 | NUR ---
ASSIGNED M/S 308-1. AWAITING FOR ON-CALL NURSE TO ARRIVE; STREET SUPERVISOR WILL UPDATE WHEN NURSE ARRIVES.
--- NOTE | 2016-10-20 20:16 | NUR ---
PT'S SON, JESSE KENYON, REQUESTING SHIFT MANAGER TO DISCUSS HOSPICE OPTIONS. JAXSON VALDIVIA INFORMED.
--- NOTE | 2016-10-20 20:34 | NUR ---
PT'S SON, JESSE KENYON:
[2016-10-20] MEDS ORDERED: IV NS 0.9% 1,000 ML IV PRN (20:40)
--- NOTE | 2016-10-20 20:43 | NUR ---
REPORT GIVEN TO SHAD. PT AWAITING TRANSFER TO FLOOR.
[2016-10-20] MEDS ORDERED: ZOLPIDEM TARTRATE 5 MG TABLET GT PRN (21:00)
[2016-10-20] MEDS ORDERED: GLYTROL 1,000 ML BAG GT SCH (21:00)
[2016-10-20] MEDS ORDERED: Z GUARD REMEDY 2 OZ OINT TP PRN (21:00)
[2016-10-20] MEDS ORDERED: ENOXAPARIN SODIUM 30 MG/0.3 ML DISP.SYRIN SQ SCH (21:00)
[2016-10-20] MEDS ORDERED: HYDROCODONE/APAP 5/325MG 1 EACH TABLET GT PRN (21:00)
[2016-10-20] MEDS ORDERED: ACETAMINOPHEN 325 MG TABLET PO PRN (21:00)
[2016-10-20] MEDS ORDERED: DEXTROSE 50%-WATER 50 ML DISP.SYRIN IV PRN (21:00)
[2016-10-20] MEDS ORDERED: ONDANSETRON HCL/PF 4 MG/2 ML VIAL IVP PRN (21:00)
--- NOTE | 2016-10-20 21:00 | NUR ---
MS/RN NOTES Patient received from er, readmitted back , 86 yo male from [facility] and was brought by family due to reported elevated temperature. patient non verbal, require extensive assistance in turning and reposition , skin with pressure ulcer in sacrum and back , need mask for oxygenation to maintain at 95%. . will provide and continue care. Family informed the need to f/u w/ case mgmt for hospice options and would prefer to know and be informed for placement that will fit the patient needs. patient family would need to be notified for any plan for his care upon discharge.
[2016-10-20 22:07] VITALS: BP 140/99
[2016-10-20] MEDS ORDERED: TAMSULOSIN 0.4 MG CAP.SR.24H ONE (23:50)
[2016-10-20] MEDS ORDERED: ENOXAPARIN SODIUM 30 MG/0.3 ML DISP.SYRIN ONE (23:51)
[2016-10-20] MEDS ORDERED: CARBIDOPA/LEVODOPA 25/100 MG 1 UDTAB ONE (23:51)
[2016-10-20] MEDS ORDERED: PROPRANOLOL HCL 10 MG TABLET ONE (23:51)
[2016-10-20] MEDS: TAMSULOSIN 0.4 MG CAP.SR.24H GT SCH (23:58)
[2016-10-20] MEDS: CARBIDOPA/LEVODOPA 25/100 MG 1 UDTAB GT SCH (23:59)
[2016-10-20] MEDS: PROPRANOLOL HCL 10 MG TABLET GT SCH (23:59)
[2016-10-21] MEDS: BLOOD SUGAR DIAGNOSTIC 1 EACH STRIP IN SCH ×5 (00:01→23:14)
[2016-10-21] MEDS ORDERED: PIPERACILLIN /TAZOBACTAM 3.375 G VIAL IV ONE ×2 (01:40→06:49)
[2016-10-21] MEDS: PIPERACILLIN /TAZOBACTAM 3.375 G VIAL IV SCH ×2 (01:46→07:02)
[2016-10-21] MEDS ORDERED: PROPRANOLOL HCL 10 MG TABLET ONE (04:45)
[2016-10-21] MEDS: PROPRANOLOL HCL 10 MG TABLET GT SCH ×3 (04:54→21:39)
[2016-10-21] MEDS: INSULIN REGULAR, HUMAN 100 UNIT/ML 3 ML VIAL SQ PRN ×2 (05:07→23:15)
--- NOTE | 2016-10-21 05:39 | NUR ---
328-1 MS/RN CLOSING NOTES PATIENT SLEEPING COMFORTABLY IN BED, NO S/S OF PAIN OR DISCOMFORT OBSERVED, WOUND DRESSING CHANGE ON LOWER EXTREMITIES, RESPIRATION EVEN AND UNLABORED, SKIN WARM TO TOUCH, ABLE TO SLEEP DURING THE NIGHT. REPOSITON FOR COMFORT. WILL ENDORSE TO AM RN REGARDING JENAE.
[2016-10-21 06:35] LABS: BASOPHILS % (AUTO) 0.2 % (0.0-2.0); EOSINOPHILS # (AUTO) 0.1 /CMM (0.0-0.7); EOSINOPHILS % (AUTO) 2.3 % (0.0-6.0); HEMATOCRIT 30 % (39-51); HEMOGLOBIN 10.2 g/dL (13.5-17.5); LYMPHOCYTES # (AUTO) 0.9 /CMM (0.8-4.8); LYMPHOCYTES % (AUTO) 18.7 % (20.0-44.0); MEAN CORPUSCULAR HEMOGLOBIN 32 PG (26.0-33.0); MEAN CORPUSCULAR HGB CONC 34 g/dl (31.0-36.0); MEAN CORPUSCULAR VOLUME 95 fL (80-96); MONOCYTES # (AUTO) 0.1 /CMM (0.1-1.30); MONOCYTES % (AUTO) 2.5 % (2.0-12.0); NEUTROPHILS # (AUTO) 3.9 /CMM (1.8-8.9); NEUTROPHILS % (AUTO) 76.3 % (43.0-81.0); PLATELET COUNT (AUTO) 156 /CMM (150-450); RDW COEFFICIENT OF VARIATION 15.1 (11.5-15.0); RED BLOOD CELL COUNT(AUTO) 3.16 MIL/uL (4.5-6.0); WHITE BLOOD COUNT (AUTO) 5.1 K/uL (4.3-11.0)
[2016-10-21 06:59] LABS: CHOLESTEROL 83 mg/dL (<200); LDL 56 mg/dL (0-99); THYROID STIMULATING HORMONE 0.823 uIU/mL (0.358-3.74); TRIGLYCERIDES 171 mg/dL (30-150)
[2016-10-21 07:06] LABS: ALANINE AMINOTRANSFERASE 23 U/L (12-78); ALBUMIN 1.5 g/dL (3.4-5.0); ALKALINE PHOSPHATASE 70 U/L (46-116); ASPARTATE AMINOTRANSFERASE 82 U/L (15-37); BILIRUBIN,TOTAL 0.3 mg/dL (0.2-1.0); CALCIUM, SERUM 7.4 mg/dL (8.5-10.1); CARBON DIOXIDE 26 mmol/L (21-32); CHLORIDE 109 mmol/L (98-107); CREATININE 0.6 mg/dL (0.6-1.3); GLUCOSE 154 mg/dL (74-106); MAGNESIUM 1.7 mg/dL (1.8-2.4); PHOSPHORUS 2.6 mg/dL (2.5-4.9); SODIUM SERUM 142 mmol/L (136-145); TOTAL PROTEIN, SERUM 5.8 g/dL (6.4-8.2); UREA NITROGEN, BLOOD 17 mg/dL (7-18)
[2016-10-21 07:41] LABS: HDL CHOLESTEROL < 10 mg/dL (40-60)
--- NOTE | 2016-10-21 07:42 | NUR ---
AM RN NOTES RECEIVED PT RESTING IN BED, WITH O2 8L/MIN VIA MASK, HOB ELEVATED, NO SOB OR DISTRESS NOTED, WILL MONITOR.
[2016-10-21 07:49] LABS: POTASSIUM 2.7 mmol/L (3.5-5.1)
[2016-10-21 08:00] VITALS: BP 119/64
[2016-10-21] MEDS ORDERED: GLYTROL 1,000 ML BAG GT SCH (08:35)
[2016-10-21] MEDS: ASPIRIN 325 MG TABLET GT SCH (08:48)
[2016-10-21] MEDS: LINAGLIPTIN 5 MG TABLET PO SCH (08:48)
[2016-10-21] MEDS: CARBIDOPA/LEVODOPA 25/100 MG 1 UDTAB GT SCH ×4 (08:48→21:38)
[2016-10-21] MEDS: ZINC SULFATE 220 MG CAPSULE GT SCH (08:49)
[2016-10-21] MEDS: METFORMIN XR 500 MG TAB.SR.24H PO SCH (08:49)
[2016-10-21] MEDS: FLUDROCORTISONE 0.1 MG TABLET GT SCH (08:49)
[2016-10-21] MEDS: PROSTAT (PYXIS) 30 ML UDC GT SCH ×2 (09:00→16:33)
[2016-10-21] MEDS ORDERED: FUROSEMIDE 40 MG/4 ML VIAL IV ONE (11:00)
[2016-10-21] MEDS: Magnesium 1GM/D5W 100ML PREMIX 100 ML IV SCH ×2 (11:36→13:08)
[2016-10-21] MEDS: ZOSYN IVPB 3.375 G in IV D5W 50ml IV SCH ×3 (11:52→23:17)
[2016-10-21] MEDS: POTASSIUM CL. PREMIX PERIPHER. 50 ML IV SCH ×4 (12:28→15:23)
[2016-10-21 16:00] VITALS: BP 142/83
--- NOTE | 2016-10-21 19:20 | NUR ---
RN OPEN NOTES RECEIVED PATIENT AWAKE IN BED. NON-VERBAL. BREATHING EVEN AND UNLABORED. NO SIGNS OF DISTRESS OR DISCOMFORT. ON 5LPM O2 VIA NC. IV ACCESS IN L HAND AND RFA, PATENT AND INTACT, NO SIGNS OF REDNESS OR INFILTRATION. HAS GTUBE INTACT AND PATENT. BED IN LOW LOCKED POSITION WITH SIDE RAILS X2. CALL LIGHT WITHIN REACH. WILL CONTINUE TO MONITOR.
--- NOTE | 2016-10-21 19:49 | NUR ---
PT IN STABLE CONDITION, INDORSED TO NEXT SHIFT.
[2016-10-21 20:00] VITALS: BP 144/87
[2016-10-21] MEDS: TAMSULOSIN 0.4 MG CAP.SR.24H GT SCH (21:38)
[2016-10-21] MEDS: ENOXAPARIN SODIUM 30 MG/0.3 ML DISP.SYRIN SQ SCH (21:40)
[2016-10-22] MEDS: GLYTROL 1,000 ML BAG GT SCH ×3 (00:51→20:06)
[2016-10-22] MEDS: BLOOD SUGAR DIAGNOSTIC 1 EACH STRIP IN SCH ×4 (05:05→23:40)
[2016-10-22] MEDS: INSULIN REGULAR, HUMAN 100 UNIT/ML 3 ML VIAL SQ PRN ×4 (05:08→23:45)
[2016-10-22] MEDS: ZOSYN IVPB 3.375 G in IV D5W 50ml IV SCH ×4 (05:09→23:41)
[2016-10-22] MEDS: PROPRANOLOL HCL 10 MG TABLET GT SCH ×3 (05:10→20:44)
[2016-10-22 07:02] LABS: CALCIUM, SERUM 7.9 mg/dL (8.5-10.1); CARBON DIOXIDE 31 mmol/L (21-32); CHLORIDE 107 mmol/L (98-107); CREATININE 0.6 mg/dL (0.6-1.3); GLUCOSE 150 mg/dL (74-106); POTASSIUM 2.9 mmol/L (3.5-5.1); SODIUM SERUM 144 mmol/L (136-145); UREA NITROGEN, BLOOD 20 mg/dL (7-18)
--- NOTE | 2016-10-22 07:38 | NUR ---
RN CLOSING NOTES PATIENT RESTING IN BED. NON-VERBAL. BREATHING EVEN AND UNLABORED. NO SIGNS OF DISTRESS OR DISCOMFORT. ON 5LPM O2 VIA MASK. IV ACCESS IN L HAND AND RFA, PATENT AND INTACT, NO SIGNS OF REDNESS OR INFILTRATION. HAS GTUBE WITH FEEDING RUNNING, INTACT AND PATENT, NO RESIDUAL NOTED, TOLERATING WELL. ALL NEEDS MET. NO SIGNIFICANT CHANGES THROUGH THE NIGHT. REPOSITIONED Q2H. BED IN LOW LOCKED POSITION WITH SIDE RAILS X2. CALL LIGHT WITHIN REACH. ENDORSED TO AM SHIFT FOR JENAE.
--- NOTE | 2016-10-22 07:45 | NUR ---
MS/RN OPENING NOTE PATIENT RECEIVED IN BED IN STABLE CONDITION. NON VERBAL. NO SIGNS OF ACUTE DISTRESS. NO COMPLAIN OF PAIN OR DISCOMFORT. ALL NEEDS ATTENDED TO. CALL LIGHT WITHIN REACH. WILL CONTINUE TO MONITOR TO ENSURE SAFETY.
[2016-10-22 08:00] VITALS: BP 136/72
[2016-10-22] MEDS: METFORMIN XR 500 MG TAB.SR.24H PO SCH (09:00)
[2016-10-22] MEDS: PROSTAT (PYXIS) 30 ML UDC GT SCH ×2 (09:00→17:00)
[2016-10-22] MEDS: LINAGLIPTIN 5 MG TABLET PO SCH (09:14)
[2016-10-22] MEDS: POTASSIUM CL. PREMIX PERIPHER. 50 ML IV SCH ×6 (09:14→15:47)
[2016-10-22] MEDS: ZINC SULFATE 220 MG CAPSULE GT SCH (09:14)
[2016-10-22] MEDS: CARBIDOPA/LEVODOPA 25/100 MG 1 UDTAB GT SCH ×4 (09:14→20:44)
[2016-10-22] MEDS: FLUDROCORTISONE 0.1 MG TABLET GT SCH (09:14)
[2016-10-22] MEDS: ASPIRIN 325 MG TABLET GT SCH (09:15)
--- NOTE | 2016-10-22 09:18 | NUR ---
MS/RN METFORMIN XR UNABLE TO ADMIN METFORMIN XR DUE TO PATIENT ON G TUBE FEEDING AND MED CAN NOT BE CRUSHED. SPOKE WITH VANESSA FROM PHARM. MADE AWARE AND WILL VERIFY ORDER WITH
--- NOTE | 2016-10-22 11:00 | NUR ---
MS/RN PROSTAT 64 NOT ADMINISTERED DUE TO UNABLE TO READ BARCODE AVAILABLE PROSTAT SF, PER ORDERS PROSTAT 64. SPOKE WITH VANESSA FROM PHARM FOR CLARIFICATION.
--- NOTE | 2016-10-22 12:04 | NUR ---
MS/RN SEEN BY DR BRASHER PATIENT SEEN BY DR BRASHER WITH ORDER TO POTASSIUM 10MEQ IVPB X 4 BAGS SECONDARY TO POTASSIUM LEVEL 2.9L
[2016-10-22] MEDS: FUROSEMIDE 40 MG/4 ML VIAL IV SCH (15:46)
[2016-10-22 16:00] VITALS: BP 144/73
--- NOTE | 2016-10-22 18:28 | NUR ---
MS/RN End note No changes at this time, all comfort measures provided. Will endorse to shaper setter.
[2016-10-22] MEDS ORDERED: Z GUARD REMEDY 4 OZ OINT TP PRN (18:30)
--- NOTE | 2016-10-22 19:49 | NUR ---
RN NOTES RECEIVED PATIENT IN BED, ALERT AND AWAKE, NO SOB, ON SIMPLE MASK AT 5LPM, SPO2 98%, KEPT HOB ELEVATED, REPOSITIONED FOR COMFORT, HAD BM, LEFT HAND SALINE LOCK IS SECURED WITH DRESSING, INFUSING KVO. WILL RE-START GT FEEDING SCHEDULED. CALL LIGHT WITHIN REACH.
[2016-10-22 20:00] VITALS: BP 127/69
[2016-10-22] MEDS: ENOXAPARIN SODIUM 30 MG/0.3 ML DISP.SYRIN SQ SCH (20:45)
[2016-10-22] MEDS: TAMSULOSIN 0.4 MG CAP.SR.24H GT SCH (21:44)
[2016-10-23] MEDS: PROPRANOLOL HCL 10 MG TABLET GT SCH ×3 (04:25→21:09)
[2016-10-23] MEDS: ZOSYN IVPB 3.375 G in IV D5W 50ml IV SCH ×4 (05:06→23:37)
[2016-10-23] MEDS: BLOOD SUGAR DIAGNOSTIC 1 EACH STRIP IN SCH ×4 (05:06→23:04)
[2016-10-23] MEDS: INSULIN REGULAR, HUMAN 100 UNIT/ML 3 ML VIAL SQ PRN ×2 (05:14→23:09)
[2016-10-23 06:30] LABS: BASOPHILS % (AUTO) 0.1 % (0.0-2.0); EOSINOPHILS # (AUTO) 0.2 /CMM (0.0-0.7); EOSINOPHILS % (AUTO) 2.1 % (0.0-6.0); HEMATOCRIT 29 % (39-51); HEMOGLOBIN 9.7 g/dL (13.5-17.5); LYMPHOCYTES # (AUTO) 1.3 /CMM (0.8-4.8); LYMPHOCYTES % (AUTO) 15.8 % (20.0-44.0); MEAN CORPUSCULAR HEMOGLOBIN 32 PG (26.0-33.0); MEAN CORPUSCULAR HGB CONC 34 g/dl (31.0-36.0); MEAN CORPUSCULAR VOLUME 95 fL (80-96); MONOCYTES # (AUTO) 0.1 /CMM (0.1-1.30); MONOCYTES % (AUTO) 1.3 % (2.0-12.0); NEUTROPHILS # (AUTO) 6.6 /CMM (1.8-8.9); NEUTROPHILS % (AUTO) 80.7 % (43.0-81.0); PLATELET COUNT (AUTO) 175 /CMM (150-450); RDW COEFFICIENT OF VARIATION 15.2 (11.5-15.0); RED BLOOD CELL COUNT(AUTO) 3.04 MIL/uL (4.5-6.0); WHITE BLOOD COUNT (AUTO) 8.2 K/uL (4.3-11.0)
--- NOTE | 2016-10-23 06:50 | NUR ---
RN NOTES PATIENT ALERT, NO SOB, ON 5LPM VIA MASK, SPO2 96%, NOT IN APPARENT PAIN, KEPT HOB ELEVATED, ON ASPIRATION PRECAUTION, GT FEEDING TOLERATED WELL, NO ABDOMINAL DISTENTION, NO VOMITING, PROVIDED GOOD PERINEAL CARE, ALL NEEDS ATTENDED, ALL DUE MEDICATIONS GIVEN, CALL LIGHT WITHIN REACH.
[2016-10-23 06:51] LABS: CALCIUM, SERUM 7.9 mg/dL (8.5-10.1); CARBON DIOXIDE 32 mmol/L (21-32); CHLORIDE 104 mmol/L (98-107); CREATININE 0.6 mg/dL (0.6-1.3); GLUCOSE 167 mg/dL (74-106); MAGNESIUM 1.9 mg/dL (1.8-2.4); PHOSPHORUS 3.1 mg/dL (2.5-4.9); POTASSIUM 3.1 mmol/L (3.5-5.1); SODIUM SERUM 142 mmol/L (136-145); UREA NITROGEN, BLOOD 17 mg/dL (7-18)
--- NOTE | 2016-10-23 07:30 | NUR ---
PT RECEIVED RESTING COMFORTABLY IN BED WITH EYES CLOSED. NO S/S OR C/O PAIN OR DISTRESS NOTED. SIDE RAILS UP X2, CALL LIGHT LEFT WITHIN REACH. WILL CONTINUE PLAN OF CARE.
[2016-10-23 08:00] VITALS: BP 120/63
[2016-10-23] MEDS: ASPIRIN 325 MG TABLET GT SCH (08:27)
[2016-10-23] MEDS: FUROSEMIDE 40 MG/4 ML VIAL IV SCH (08:27)
[2016-10-23] MEDS: METFORMIN XR 500 MG TAB.SR.24H PO SCH (08:27)
[2016-10-23] MEDS: ZINC SULFATE 220 MG CAPSULE GT SCH (08:27)
[2016-10-23] MEDS: FLUDROCORTISONE 0.1 MG TABLET GT SCH (08:27)
[2016-10-23] MEDS: CARBIDOPA/LEVODOPA 25/100 MG 1 UDTAB GT SCH ×4 (08:27→21:09)
[2016-10-23] MEDS: PROSTAT (PYXIS) 30 ML UDC GT SCH ×2 (08:28→17:02)
[2016-10-23] MEDS: POTASSIUM CL. PREMIX PERIPHER. 50 ML IV SCH ×4 (09:59→17:02)
--- NOTE | 2016-10-23 13:10 | NUR ---
I WAS CALLED TO PATIENT'S ROOM FOR NT SUCTION. OBTAINED LARGE AMOUNT OF THICK FITCH SECRETIONS. PATIENT WAS PLACED BACK ON 6LPM VIA SIMPLE MASK. SP02=97%. NURSE(ELIZABETH) AWARE.
[2016-10-23 16:00] VITALS: BP 131/73
[2016-10-23] MEDS ORDERED: POTASSIUM CL. PREMIX PERIPHER. 50 ML ONE (16:57)
--- NOTE | 2016-10-23 18:16 | NUR ---
CHANGE OF SHIFT REPORT PT RESTING COMFORTABLY IN BED WITH EYES CLOSED. NO S/S OR C/O PAIN OR DISTRESS NOTED. SIDE RAILS UP X2, CALL LIGHT LEFT WITHIN REACH. PT KEPT CLEAN, DRY, AND COMFORTABLE. NO SIGNIFICANT CHANGES FROM PREVIOUS SHIFT. WILL GIVE REPORT TO MORENA GARRISON.
--- NOTE | 2016-10-23 19:50 | NUR ---
MS RN INITIAL NOTES RECEIVED REPORT FROM DAY SHIFT. PT IS IN BED SLEEPING, EASILY AROUSED A/O X1 NON VERBAL. PT IS ON 5L MASK BREATHING EVENLY AND UNLABORED, NO SIGNS OR SOB OR DISTRESS. IV ACCESS IS INTACT AND PATENT. G-TUBE FEEDING IS TO RESUME AT 1999. POSSIBLE D/C TO HOSPICE TOMORROW. WILL CONTINUE TO MONITOR PT.
[2016-10-23 20:00] VITALS: BP 152/71
[2016-10-23] MEDS: ENOXAPARIN SODIUM 30 MG/0.3 ML DISP.SYRIN SQ SCH (21:07)
[2016-10-23] MEDS: TAMSULOSIN 0.4 MG CAP.SR.24H GT SCH (21:09)
[2016-10-24] MEDS: GLYTROL 1,000 ML BAG GT SCH (02:24)
[2016-10-24] MEDS: BLOOD SUGAR DIAGNOSTIC 1 EACH STRIP IN SCH ×2 (05:09→12:05)
[2016-10-24] MEDS: ZOSYN IVPB 3.375 G in IV D5W 50ml IV SCH ×2 (05:10→12:30)
[2016-10-24] MEDS: PROPRANOLOL HCL 10 MG TABLET GT SCH ×2 (05:18→13:37)
[2016-10-24] MEDS: INSULIN REGULAR, HUMAN 100 UNIT/ML 3 ML VIAL SQ PRN ×2 (05:22→12:04)
--- NOTE | 2016-10-24 06:31 | NUR ---
MS RN CLOSING NOTES PT IS IN BED SLEEPING, NON- VERBAL, OPENS EYES AND GROANS TO STIMULI. G-TUBE FEEDING WAS BEGUN ON 10/23 AT 1999. ON 5L MASK, BREATHING EVENLY AND UNLABORED, NO SIGNS OF SOB OR DISTRESS. POSSIBLE D/C TO HOSPICE. BED IS IN LOW AND LOCKED POSITION. WILL ENDORSE TO DAY SHIFT.
[2016-10-24 06:34] LABS: BASOPHILS % (AUTO) 0.1 % (0.0-2.0); EOSINOPHILS # (AUTO) 0.1 /CMM (0.0-0.7); EOSINOPHILS % (AUTO) 1.8 % (0.0-6.0); HEMATOCRIT 32 % (39-51); HEMOGLOBIN 10.6 g/dL (13.5-17.5); LYMPHOCYTES # (AUTO) 1.1 /CMM (0.8-4.8); LYMPHOCYTES % (AUTO) 17.6 % (20.0-44.0); MEAN CORPUSCULAR HEMOGLOBIN 31 PG (26.0-33.0); MEAN CORPUSCULAR HGB CONC 33 g/dl (31.0-36.0); MEAN CORPUSCULAR VOLUME 95 fL (80-96); MONOCYTES # (AUTO) 0.2 /CMM (0.1-1.30); MONOCYTES % (AUTO) 2.9 % (2.0-12.0); NEUTROPHILS # (AUTO) 4.9 /CMM (1.8-8.9); NEUTROPHILS % (AUTO) 77.6 % (43.0-81.0); PLATELET COUNT (AUTO) 267 /CMM (150-450); RDW COEFFICIENT OF VARIATION 15.7 (11.5-15.0); RED BLOOD CELL COUNT(AUTO) 3.38 MIL/uL (4.5-6.0); WHITE BLOOD COUNT (AUTO) 6.4 K/uL (4.3-11.0)
--- NOTE | 2016-10-24 07:10 | NUR ---
RN MS NOTES PATIENT IN BED, ALERT AND ORIENTED X1, NON-VERBAL, ON O2 WITH SIMPLE MASK, NO SOB NOTED, HOB ELEVATED, GTF FEEDING ONGOING AND TOLERATING WELL, NO RESIDUAL AT THIS TIME, PLACEMENT VERIFIED, TURNED AND REPOSITIONED, SKIN KEPT CLEAN AND DRY, OFFLOADED, NEEDS ATTENDED AND ANTICIPATED, CALL LIGHT WITHIN REACH, SAFETY MEASURES IN PLACED, WILL CONTINUE TO MONITOR.
[2016-10-24 07:17] LABS: CALCIUM, SERUM 8.5 mg/dL (8.5-10.1); CARBON DIOXIDE 39 mmol/L (21-32); CHLORIDE 102 mmol/L (98-107); CREATININE 0.6 mg/dL (0.6-1.3); GLUCOSE 134 mg/dL (74-106); PHOSPHORUS 3.2 mg/dL (2.5-4.9); POTASSIUM 3.3 mmol/L (3.5-5.1); SODIUM SERUM 143 mmol/L (136-145); UREA NITROGEN, BLOOD 20 mg/dL (7-18)
[2016-10-24 08:00] VITALS: BP 156/83
[2016-10-24] MEDS: METFORMIN XR 500 MG TAB.SR.24H PO SCH (09:21)
[2016-10-24] MEDS: FUROSEMIDE 40 MG/4 ML VIAL IV SCH (09:21)
[2016-10-24] MEDS: FLUDROCORTISONE 0.1 MG TABLET GT SCH (09:21)
[2016-10-24] MEDS: CARBIDOPA/LEVODOPA 25/100 MG 1 UDTAB GT SCH ×2 (09:21→13:33)
[2016-10-24] MEDS: ASPIRIN 325 MG TABLET GT SCH (09:21)
[2016-10-24] MEDS: ZINC SULFATE 220 MG CAPSULE GT SCH (09:21)
[2016-10-24] MEDS: PROSTAT (PYXIS) 30 ML UDC GT SCH (09:27)
[2016-10-24] MEDS: POTASSIUM CL. PREMIX PERIPHER. 50 ML IV SCH ×4 (10:33→13:33)
[2016-10-24] MEDS ORDERED: HYDROGEL DRESSING 90 GM TUBE TP SCH (15:30)
--- NOTE | 2016-10-24 16:09 | NUR ---
PHYS ASST NOTE PATIENT ALERT AND ORIENTED X1, SUCTIONED PRN WITH GREEN FROTHY MUCUS, PATIENT HAS AN ORDER FOR DISCHARGE TO SNF, WITH HOSPICE CONSULT, PATIENT WILL BE DISCHARGED TODAY, REPORT GIVEN TO PRIMCarolyne NURSE AT [facility], SKIN ASSESSMENT COMPLETED, PHOTOS TAKEN, WOUND TREATMENT RENDERED ORDERED, DRESSING CHANGED, ALL DUE MEDICATIONS ADMINISTERED ORDERED, INSERTED A NEW PIV ON LFA #22G, PATENT AND FLUSHES WELL, NO BELONGINGS FOUND AT BEDSIDE, AWAITING FOR TRANSPORTATION, WILL CONTINUE TO MONITOR.
[2016-10-24 16:21] VITALS: BP 144/95
--- NOTE | 2016-10-24 17:05 | NUR ---
BUSINESS ANALYST MANAGER PATIENT LEFT THE FACILITY ACCOMPANIED BY 2 STOREHOUSE CLERK, REPORT AND PAPERWORKS GIVEN TO EMT. PATIENT IS IN NO DISTRESS.
== END 2016-10-24 17:06 | DRG 177 ==
LOC: ER 17:36 → MED 20:12
PROVIDERS: ADMIT Nurse Practitioner Acute Care; ATTEND Nurse Practitioner Acute Care
DX: J15.6 Pneumonia due to other Gram-negative bacteria (principal); N17.0 Acute kidney failure with tubular necrosis; J96.01 Acute respiratory failure with hypoxia; G92 Toxic encephalopathy; L89.153 Pressure ulcer of sacral region, stage 3; R53.2 Functional quadriplegia; D68.59 Other primary thrombophilia; R13.10 Dysphagia, unspecified; E87.1 Hypo-osmolality and hyponatremia; Z68.1 Body mass index [BMI] 19.9 or less, adult; D64.9 Anemia, unspecified; E11.9 Type 2 diabetes mellitus without complications; E53.8 Deficiency of other specified B group vitamins; E87.6 Hypokalemia; E87.70 Fluid overload, unspecified; F02.80 Dementia in other diseases classified elsewhere, unspecified severity, without behavioral disturbance, psychotic disturbance, mood disturbance, and anxiety; G30.9 Alzheimer's disease, unspecified; G20 Parkinson's disease; I10 Essential (primary) hypertension; I25.10 Atherosclerotic heart disease of native coronary artery without angina pectoris; K59.00 Constipation, unspecified; N40.0 Benign prostatic hyperplasia without lower urinary tract symptoms; Z66 Do not resuscitate; Z79.82 Long term (current) use of aspirin; Z91.81 History of falling; Z95.0 Presence of cardiac pacemaker; Z98.890 Other specified postprocedural states; Z79.4 Long term (current) use of insulin; Z79.899 Other long term (current) drug therapy; L89.891 Pressure ulcer of other site, stage 1; Z93.1 Gastrostomy status; F09 Unspecified mental disorder due to known physiological condition
CPT/HCPCS: 36415; 71010-TC; 80048-TC; 80053-TC; 80061-TC; 80076-TC; 82962-TC; 83605-TC; 83735-TC; 84100-TC; 84443-TC; 84484-TC; 85025-TC; 85730-TC; 87040-TC; 87081-TC; A4606; A6248; J0692; J1650; J1815; J1940; J2543; J3370; J3475; J3480; J7030; J7040; J7060; Z7610